=== PATIENT | male | born 1945 | race Caucasian/White ===

== ENCOUNTER 2018-01-02 06:25 | Day surgery (SDC) | payer OTHER, BC ==
[2018-01-01 15:42] LABS: Absolute Lymphocytes (CBC) 1.4 K/uL (0.7-4.9); Absolute Monocytes 0.5 K/uL (0.1-1.3); Absolute Neutrophil 4.6 K/uL (1.8-8.0); Basophils % 0.6 % (0-1.3); Hematocrit 43.9 % (39.6-49.0); Lymphocytes % 21.2 % (15.3-44.8); MCH 31.2 pg (27.0-35.0); MCV 90.1 fL (80-100); MPV 9.9 fL (7.6-11.3); Monocytes % 7.3 % (3.3-12.3); RBC Red Blood Cell Count 4.87 M/uL (4.33-5.43)
[2018-01-01 16:03] LABS: Potassium 3.7 mmol/L (3.5-5.1); Protime INR 0.96
[2018-01-02] MEDS ORDERED: HEPA 1000U/500MLS 2,000 UNIT/1,000 ML BAG IV ONE (06:43)
[2018-01-02] MEDS ORDERED: NA CHLORIDE 0.9% 500 ML ONE (06:44)
[2018-01-02] MEDS ORDERED: MIDAZOLAM HCL 2 MG/2 ML INJ ONE ×2 (07:27→07:35)
[2018-01-02] MEDS ORDERED: FENTANYL CITR 100 MCG/2 ML ONE (07:28)
[2018-01-02] MEDS ORDERED: ATROPINE SULF 1 MG/10 ML SYR IV ONE (07:28)
[2018-01-02] MEDS ORDERED: NA CHLORIDE 0.9% 0 ML ONE (07:28)
[2018-01-02] MEDS ORDERED: LIDOCAINE 1% MPF 2 ML AMPULE ONE (07:32)
--- NOTE | 2018-01-02 08:47 | OP ---
Surgeon: Lyle Gunderson MD Structural Steel Worker Apprentice: Theodora Jackson. Procedures: Left heart catheterization, selective coronary arteriogram, left heart catheterization, left ventricular angiogram, MOSS injection, and a RUSSELL injection. Indication: Unstable angina and coronary artery disease. Procedure In Detail: The patient is a 72-year-old with history of CABG, unstable angina, scheduled f or an outpatient catheterization today 01/02/2018. Prepped and draped in the routine sterile fashion . Given 3 mg of Versed and 50 mg of fentanyl for IV sedation. Right common femoral artery access wi th a 6-Mongolian sheath. StarClose was used to close the case. Brian catheter was used to do the lobito gnostic catheterization. He was found to have a normal left main. LAD has some diffuse plaquing and no significant stenosis. There was a 60% ostial circumflex stenosis that is small. He has left dom inant. He had a very large patent OM only with some plaquing. The pechanga RCA was completely occlude d. He had a MOSS that is completely occluded. He had a RUSSELL to the RCA that is patent, connect to t he PDA distally. LV-gram was normal. Normal end-diastolic pressure. No wall motion, normal ejectio n fraction. Complications: None. Estimated Blood Loss: 5 cc. Postoperative Diagnosis: Coronary artery disease. Plan: For medical treatment. Optical Scientist: Myself. Total Conscious Sedation: 30 minutes. NATALY/GALEN Voice ID: [id number] Report ID: [id number]
== END 2018-01-02 10:03 | disposition home or self-care (01) ==
LOC: CCL 06:25
DX: I25.110 Atherosclerotic heart disease of native coronary artery with unstable angina pectoris (principal); I25.82 Chronic total occlusion of coronary artery; I10 Essential (primary) hypertension; E78.6 Lipoprotein deficiency; J44.9 Chronic obstructive pulmonary disease, unspecified; Z95.1 Presence of aortocoronary bypass graft; Z87.891 Personal history of nicotine dependence; Z88.0 Allergy status to penicillin
CPT/HCPCS: 36415; 80048; 85025; 85610; 85730; 93458; C1893; J2001; J2250 ×2; J3010; J0583

== ENCOUNTER 2018-02-18 00:10 | Emergency (ER) | payer OTHER, BC ==
[2018-02-18 01:19] LABS: Absolute Lymphocytes (CBC) 2.2 K/uL (0.7-4.9); Absolute Monocytes 0.9 K/uL (0.1-1.3); Absolute Neutrophil 8.3 K/uL (1.8-8.0); Basophils % 0.6 % (0-1.3); Eosinophils % 2.1 % (0-4.4); Hematocrit 42.2 % (39.6-49.0); Lymphocytes % 18.5 % (15.3-44.8); MCV 88.8 fL (80-100); MPV 9.6 fL (7.6-11.3); RBC Red Blood Cell Count 4.75 M/uL (4.33-5.43)
[2018-02-18 01:46] LABS: Protime INR 0.99
[2018-02-18 02:08] LABS: ALT/SGPT 28 U/L (12-78); AST/SGOT 21 U/L (15-37); Albumin 3.7 g/dL (3.4-5.0); Alkaline Phosphatase 69 U/L (45-117); BUN Blood Urea Nitrogen 21 mg/dL (7-18); Bicarbonate 28 mmol/L (21-32); Bilirubin Direct 0.1 mg/dL (0-0.2); Bilirubin Total 0.3 mg/dL (0.2-1.0); CKMB Creatine Kinase MB 4.3 ng/mL (0.3-3.6); Creatine Phosphokinase 392 U/L (39-308); Glucose Level 96 mg/dL (74-106); Lipase 86 U/L (73-393); Magnesium 1.9 mg/dL (1.8-2.4); NT PRO-BNP 193 pg/mL (<125); Potassium 3.4 mmol/L (3.5-5.1); Protein, Total 7.2 g/dL (6.4-8.2); Sodium Level 141 mmol/L (136-145); Troponin (Emerg Dept Use Only) < 0.02 ng/mL (0.0-0.045)
--- NOTE | 2018-02-18 04:46 | EDPHYS ---
Physician Documentation [facility] Name: Alexandro Reinoso Age: 72 yrs Sex: Male : 1945 Arrival Date: 02/18/2018 Time: 00:11 Bed 4 Private MD: ED Physician Wilmer Garcia HPI: 02/18 00:51 This 72 yrs old Male presents to ER via Ambulatory with complaints of tw4 Breathing Difficulty, Foreign Body In Throat. 00:51 The patient has shortness of breath at rest. Onset: The symptoms/episode began/occurred tw4 just prior to arrival. Duration: The symptoms are continuous. The patient's shortness of breath has no apparent modifying factors. Associated signs and symptoms: The patient has no apparent associated signs or symptoms. Severity of symptoms: At their worst the symptoms were severe in the emergency department the symptoms are unchanged. The patient has experienced a previous episode, and the symptoms today are exactly the same. The patient has not recently seen a physician. Historical: - Allergies: 00:24 PENICILLINS; fc - Home Meds: 00:24 hydrochlorothiazide 12.5 mg Oral cap 1 cap once daily [Active]; rosuvastatin 20 mg oral fc tab 1 tab once daily [Active]; diltiazem HCl 240 mg Oral CDER 1 cap once daily [Active]; aspirin 81 mg Oral TbEC 1 tab once daily [Active]; - PMHx: 00:24 COPD; High Cholesterol; CAD; fc - PSHx: 00:24 CABG; fc - Immunization history:: Last tetanus immunization: up to date Flu vaccine is up to date. - Social history:: Smoking status: Patient/guardian denies using tobacco, Patient/guardian denies using alcohol, street drugs. - Ebola Screening: : Patient negative for fever greater than or equal to 101.5 degrees Fahrenheit, and additional compatible Ebola Virus Disease symptoms Patient denies exposure to infectious person Patient denies travel to an Ebola-affected area in the 21 days before illness onset. ROS: 00:51 Constitutional: Negative for fever, chills, and weight loss, Eyes: Negative for injury, tw4 pain, redness, and discharge, Cardiovascular: Negative for chest pain, palpitations, and edema, Abdomen/GI: Negative for abdominal pain, nausea, vomiting, diarrhea, and constipation, Back: Negative for injury and pain, MS/Extremity: Negative for injury and deformity, Skin: Negative for injury, rash, and discoloration. 00:51 Respiratory: Positive for cough, with no reported sputum, dyspnea on exertion, shortness of breath, Negative for hemoptysis, orthopnea, pleurisy. Exam: 01:03 Constitutional: This is a well developed, well nourished patient who is awake, alert, tw4 and in no acute distress. Head/Face: Normocephalic, atraumatic. Chest/axilla: Normal chest wall appearance and motion. Nontender with no deformity. No lesions are appreciated. Cardiovascular: Regular rate and rhythm with a normal S1 and S2. No gallops, murmurs, or rubs. Normal PMI, no JVD. No pulse deficits. 01:03 Respiratory: mild respiratory distress is noted, Respirations: normal, Breath sounds: bronchial sounds, that are moderate, are scattered, rhonchi, that are moderate, are scattered. 01:12 ECG was reviewed by the Attending Physician. tw4 Vital Signs: 00:11 BP 191 / 92; Pulse 117; Resp 24; Temp 98.4(O); Pulse Ox 91% on R/A; Weight 72.57 kg fc (R); Height 5 ft. 5 in. (165.10 cm) (R); Pain 0/10; 00:58 BP 143 / 83; Pulse 100; Resp 20; Pulse Ox 94% on R/A; tl2 01:58 BP 143 / 82; Pulse 93; Resp 11; Pulse Ox 97% on R/A; tl2 02:18 BP 145 / 83; Pulse 94; Resp 14; Pulse Ox 97% ; ea 02:47 BP 136 / 85; Pulse 92; Resp 19; Pulse Ox 98% on R/A; tl2 03:27 BP 150 / 91; Pulse 96; Resp 18; Pulse Ox 95% ; ea 03:40 BP 141 / 89; Pulse 91; Resp 20; Pulse Ox 97% on R/A; tl2 04:40 BP 146 / 86; Pulse 86; Resp 16; Pulse Ox 98% on R/A; tl2 00:11 Body Mass Index 26.63 (72.57 kg, 165.10 cm) MDM: 00:23 Patient medically screened. tw4 04:41 Differential diagnosis: Anemia Anxiety Reaction pneumonia, Pneumothorax reactive airway tw4 disease. Data reviewed: vital signs, nurses notes. Data interpreted: Pulse oximetry: Interpretation: normal. Counseling: I had a detailed discussion with the patient and/or guardian regarding: the historical points, exam findings, and any diagnostic results supporting the discharge/admit diagnosis. Special discussion: I discussed with the patient/guardian in detail that at this point there is no indication for admission to the hospital. It is understood, however, that if the symptoms persist or worsen the patient needs to return immediately for re-evaluation. 02/18 00:25 Order name: Blood Culture Adult (2) 02/18 00:25 Order name: BMP; Complete Time: 03:24 02/18 03:25 Interpretation: Normal except: BUN 21; K 3.4; GFR 60. 02/18 00:25 Order name: CBC with Diff; Complete Time: 03:24 02/18 03:25 Interpretation: Normal except: WBC 11.7. 02/18 00:25 Order name: Ckmb; Complete Time: 03:24 02/18 03:25 Interpretation: Normal except: CKMB 4.3. 02/18 00:25 Order name: CPK; Complete Time: 03:24 02/18 03:25 Interpretation: Normal except: CPK 392. 02/18 00:25 Order name: D-Dimer; Complete Time: 03:24 02/18 03:25 Interpretation: Within normal limits: D-DIMER 441. 02/18 00:25 Order name: Hepatic Function; Complete Time: 03:24 02/18 03:25 Interpretation: Within normal limits. 02/18 00:25 Order name: Lipase; Complete Time: 03:24 02/18 03:25 Interpretation: LIP 86. 02/18 00:25 Order name: Magnesium; Complete Time: 03:24 02/18 03:26 Interpretation: Within normal limits: MG 1.9. 02/18 00:25 Order name: NT PRO-BNP; Complete Time: 03:24 02/18 03:25 Interpretation: Normal except: NT PRO-BNP 193. 02/18 00:25 Order name: PT-INR; Complete Time: 03:24 02/18 03:26 Interpretation: Within normal limits: PT 11.7. tw4 02/18 00:25 Order name: Ptt, Activated; Complete Time: 03:24 tw4 02/18 03:27 Interpretation: Within normal limits: PTT 27.4. tw4 02/18 00:25 Order name: Troponin (emerg Dept Use Only); Complete Time: 03:24 tw4 02/18 03:27 Interpretation: Within normal limits: TROPED < 0.02. tw4 02/18 00:27 Order name: Blood Culture EDCO 02/18 00:25 Order name: XRAY CXR (1 view) tw4 02/18 00:25 Order name: EKG; Complete Time: 00:27 tw4 02/18 00:25 Order name: Cardiac monitoring; Complete Time: 00:49 4 02/18 00:25 Order name: EKG - Nurse/Tech; Complete Time: 00:55 tw4 02/18 00:25 Order name: IV Saline Lock; Complete Time: 01:25 4 02/18 00:25 Order name: Labs collected and sent; Complete Time: 00:55 4 02/18 00:25 Order name: O2 Per Protocol; Complete Time: 00:49 tw4 02/18 00:25 Order name: O2 Sat Monitoring; Complete Time: 00:49 4 02/18 00:34 Order name: CT Chest Wo Con EC:12 Rate is 102 beats/min. QRS Rhome is Normal. CO interval is normal. QRS interval is tw4 normal. QT interval is normal. No Q waves. T waves are Inverted. No ST changes noted. Clinical impression: Sinus tachycardia. Interpreted by me. Reviewed by me. Administered Medications: No medications were administered Disposition: 02/18/18 04:45 Discharged to Home. Impression: CHOKING episode. - Condition is Stable. - Discharge Instructions: Choking, Adult. - Prescriptions for ROBITUSSIN AC - take 5 milliliter by ORAL route 3 times per day; 100 milliliter. Tessalon Perles 100 mg Oral Capsule - take 1 capsule by ORAL route every 8 hours As needed; 15 capsule. Cleocin 150 mg Oral Capsule - take 1 capsule by ORAL route every 6 hours for 10 days; 40 capsule. - Medication Reconciliation Form, Thank You Letter, Antibiotic Education, Prescription Opioid Use form. - Follow up: Private Physician; When: Upon discharge from the Emergency Department; Reason: Further diagnostic work-up, Recheck today's complaints, Continuance of care. - Problem is new. - Symptoms have improved. Signatures: Dispatcher [employer] Erika Denise RN RN Ritu Machado RN RN tl2 Wilmer Garcia MD MD tw4 Corrections: (The following items were deleted from the chart) 04:53 04:45 02/18/2018 04:45 Discharged to Home. Impression: CHOKING episode. Condition is tl2 Stable. Forms are Medication Reconciliation Form, Thank You Letter, Antibiotic Education, Prescription Opioid Use. Follow up: Private Physician; When: Upon discharge from the Emergency Department; Reason: Further diagnostic work-up, Recheck today's complaints, Continuance of care. Problem is new. Symptoms have improved. tw4
--- NOTE | 2018-02-18 04:46 | ER ---
Nurse's Notes [facility] Name: Alexandro Reinoso Age: 72 yrs Sex: Male : 1945 Arrival Date: 02/18/2018 Time: 00:11 Bed 4 Private MD: Diagnosis: CHOKING episode Presentation: 02/18 00:11 Presenting complaint: Patient states: that he is having episodes of feeling as if fc something is stuck in his throat. When this happens he cannot catch his breath and has coughing fits. Thinks he might have bread stuck in his throat. Transition of care: patient was not received from another setting of care. Onset of symptoms was February 17, 2018 at 19:30. Risk Assessment: Do you want to hurt yourself or someone else? Patient reports no desire to harm self or others. Initial Sepsis Screen: Does the patient meet any 2 criteria? RR > 20 per min. HR > 90 bpm. Yes Does the patient have a suspected source of infection? No. Patient's initial sepsis screen is negative. Care prior to arrival: None. 00:11 Method Of Arrival: Ambulatory fc 00:11 Acuity: SAMUEL 3 fc Historical: - Allergies: 00:24 PENICILLINS; fc - Home Meds: 00:24 hydrochlorothiazide 12.5 mg Oral cap 1 cap once daily [Active]; rosuvastatin 20 mg oral fc tab 1 tab once daily [Active]; diltiazem HCl 240 mg Oral CDER 1 cap once daily [Active]; aspirin 81 mg Oral TbEC 1 tab once daily [Active]; - PMHx: 00:24 COPD; High Cholesterol; CAD; fc - PSHx: 00:24 CABG; fc - Immunization history:: Last tetanus immunization: up to date Flu vaccine is up to date. - Social history:: Smoking status: Patient/guardian denies using tobacco, Patient/guardian denies using alcohol, street drugs. - Ebola Screening: : Patient negative for fever greater than or equal to 101.5 degrees Fahrenheit, and additional compatible Ebola Virus Disease symptoms Patient denies exposure to infectious person Patient denies travel to an Ebola-affected area in the 21 days before illness onset. Screenin:25 Abuse screen: Denies threats or abuse. Nutritional screening: No deficits noted. fc Tuberculosis screening: No symptoms or risk factors identified. Fall Risk None identified. Assessment: 00:58 General: Appears in no apparent distress. uncomfortable, Behavior is calm, cooperative, tl2 appropriate for age. Pain: Denies pain. Neuro: Level of Consciousness is awake, alert, obeys commands, Oriented to person, place, time, situation. Cardiovascular: Denies chest pain, Rhythm is sinus tachycardia. Respiratory: Reports cough that is Airway is patent Respiratory effort is even, unlabored, Respiratory pattern is regular, symmetrical, Breath sounds are clear bilaterally. GI: No deficits noted. : No deficits noted. Derm: Skin is pink, warm \T\ dry. 01:44 Reassessment: Patient and/or family updated on plan of care and expected duration. Pain ea level reassessed. Patient is alert, oriented x 3, equal unlabored respirations, skin warm/dry/pink. 01:59 Reassessment: Patient appears in no apparent distress at this time. Patient and/or tl2 family updated on plan of care and expected duration. Pain level reassessed. Patient is alert, oriented x 3, equal unlabored respirations, skin warm/dry/pink. 02:47 Reassessment: Patient appears in no apparent distress at this time. Patient and/or tl2 family updated on plan of care and expected duration. Pain level reassessed. Patient is alert, oriented x 3, equal unlabored respirations, skin warm/dry/pink. Pt states he feels like the foreign body in his throat is gone Patient states feeling better. 03:26 Reassessment: Patient and/or family updated on plan of care and expected duration. Pain ea level reassessed. Patient is alert, oriented x 3, equal unlabored respirations, skin warm/dry/pink. Awaiting on CT results. 04:41 Reassessment: Patient appears in no apparent distress at this time. Patient and/or tl2 family updated on plan of care and expected duration. Pain level reassessed. Patient is alert, oriented x 3, equal unlabored respirations, skin warm/dry/pink. 04:52 Reassessment: Patient appears in no apparent distress at this time. Patient and/or tl2 family updated on plan of care and expected duration. Pain level reassessed. Patient is alert, oriented x 3, equal unlabored respirations, skin warm/dry/pink. Pt and family verbalized understanding of discharge instructions, need for follow up and prescription usage. Vital Signs: 00:11 BP 191 / 92; Pulse 117; Resp 24; Temp 98.4(O); Pulse Ox 91% on R/A; Weight 72.57 kg fc (R); Height 5 ft. 5 in. (165.10 cm) (R); Pain 0/10; 00:58 BP 143 / 83; Pulse 100; Resp 20; Pulse Ox 94% on R/A; tl2 01:58 BP 143 / 82; Pulse 93; Resp 11; Pulse Ox 97% on R/A; tl2 02:18 BP 145 / 83; Pulse 94; Resp 14; Pulse Ox 97% ; ea 02:47 BP 136 / 85; Pulse 92; Resp 19; Pulse Ox 98% on R/A; tl2 03:27 BP 150 / 91; Pulse 96; Resp 18; Pulse Ox 95% ; ea 03:40 BP 141 / 89; Pulse 91; Resp 20; Pulse Ox 97% on R/A; tl2 04:40 BP 146 / 86; Pulse 86; Resp 16; Pulse Ox 98% on R/A; tl2 00:11 Body Mass Index 26.63 (72.57 kg, 165.10 cm) ED Course: 00:11 Patient arrived in ED. am2 00:11 Arm band placed on Patient placed in an exam room, on a stretcher. fc 00:11 Patient has correct armband on for positive identification. Placed in gown. Bed in low fc position. Call light in reach. monitor technician on. Pulse ox on. NIBP on. 00:21 Triage completed. fc 00:23 Wilmer Garcia MD is Attending Physician. tw4 00:38 X-ray completed. Portable x-ray completed in exam room. Patient tolerated procedure kw well. 00:38 XRAY CXR (1 view) In Process Unspecified. EDMS 00:53 Radiology exam delayed due to ER Staff getting labs on patient plus EKG being done. kw1 00:56 Initial lab(s) drawn, by ED staff, sent to lab. EKG done, by ED staff, reviewed by sherrill Garcia MD. 01:[address] via wheelchair. kw1 01:06 CT completed. Patient tolerated procedure well. Patient moved back from CT. kw1 01:07 CT Chest Wo Con In Process Unspecified. EDMS 01:25 Machado, Ritu, RN is Primary Nurse. tl2 01:32 Blood Culture Adult (2) Sent. ds4 01:32 BMP Sent. ds4 01:32 Ckmb Sent. ds4 01:32 CPK Sent. ds4 01:32 D-Dimer Sent. ds4 01:33 PT-INR Sent. ds4 01:33 Hepatic Function Sent. ds4 01:33 Ptt, Activated Sent. ds4 01:33 Lipase Sent. ds4 01:33 Magnesium Sent. ds4 01:33 NT PRO-BNP Sent. ds4 01:33 Troponin (emerg Dept Use Only) Sent. ds4 01:33 Blood Culture Sent. ds4 04:52 No provider procedures requiring assistance completed. Patient did not have IV access tl2 during this emergency room visit. Administered Medications: No medications were administered Outcome: 04:45 Discharge ordered by . tw4 04:52 Discharged to home ambulatory, with family. tl2 04:52 Condition: stable 04:52 Discharge instructions given to patient, family, Instructed on discharge instructions, follow up and referral plans. medication usage, Demonstrated understanding of instructions, follow-up care, medications, Prescriptions given X 3. 04:53 Patient left the ED. tl2 Signatures: Dispatcher [employer] EDW[facility] Erika Romo RN RN fc Whitley, Kimberlee kw Swanson, Donovan ds4 Ritu Machado RN RN tl2 Rosetta Eller Elena, RN RN ea Wilhelm, Kimberly 1 Wilmer Garcia MD MD tw4
--- NOTE | 2018-02-18 08:28 | RAD REPORT ---
EXAM DESCRIPTION: RAD - Chest Single View - 02/18/2018 12:41 am CLINICAL HISTORY: DYSPNEA Chest pain. COMPARISON: Chest Pa And Lat (2 Views) dated 12/09/2017; Thorax Wo Con dated 02/18/2018 FINDINGS: Portable technique limits examination quality. Emphysematous changes are present throughout the lungs. No focal infiltrate seen. The heart is normal in size. No displaced fractures.Sternotomy wires. IMPRESSION: Prominent COPD.
--- NOTE | 2018-02-18 08:30 | RAD REPORT ---
EXAM DESCRIPTION: CT - Thorax Wo Con CLINICAL HISTORY: Chest pain r/o FB COMPARISON: No comparisons FINDINGS: Severe emphysema is present. No nodule, mass or infiltrate is detected. No pleural thicken ing or pleural effusion. No pneumothorax. No axillary, mediastinal or hilar adenopathy. Small hiatal hernia is seen. No concerning bony finding. No gross upper abdominal finding. All CT scans are performed using dose optimization technique as appropriate and may include automated exposure control or mA/KV adjustment according to patient size. IMPRESSION: Severe COPD.
--- NOTE | 2018-02-18 12:12 | EKG ---
Test Date: 2018-02-18 Test Time: 00:54:37 Water System Operator: KALEN MEASUREMENT RESULTS: Intervals: Rate: 102 WV: 172 QRSD: 92 QT: 364 QTc: 474 [place]: P: 65 WV: 172 QRS: 11 T: 48 INTERPRETIVE STATEMENTS: Sinus tachycardia Possible Inferior infarct, age undetermined Abnormal ECG No previous ECG available for comparison Electronically Signed On 02-18-18 12:09:59 CDT by Lyle Gunderson
== END 2018-02-18 04:53 | disposition home or self-care (01) ==
LOC: ER 00:10
DX: R09.89 Other specified symptoms and signs involving the circulatory and respiratory systems (principal); E78.00 Pure hypercholesterolemia, unspecified; J44.9 Chronic obstructive pulmonary disease, unspecified; Z79.82 Long term (current) use of aspirin; Z88.0 Allergy status to penicillin; Z95.1 Presence of aortocoronary bypass graft
CPT/HCPCS: 36415; 71045; 71250; 80048; 80076; 82550; 82553; 83690; 83735; 83880; 84484; 85025; 85379; 85610; 85730; 87040; 93005; 99285

== ENCOUNTER 2018-12-28 21:06 | Emergency (ER) | payer OTHER, BC ==
[2018-12-28] MEDS ORDERED: EPINEPHrine 1 MG/10 ML SYR IV ONE (21:07)
[2018-12-28] MEDS ORDERED: ASPIRIN 81 MG CHEWABLE TABLET ONE (21:20)
[2018-12-28 21:22] LABS: Absolute Lymphocytes (CBC) 2.6 K/uL (0.7-4.9); Basophils % 0.7 % (0-1.3); Hematocrit 47.6 % (39.6-49.0); Lymphocytes % 20.3 % (15.3-44.8); MPV 9.3 fL (7.6-11.3); RBC Red Blood Cell Count 5.36 M/uL (4.33-5.43)
[2018-12-28] MEDS ORDERED: FENTANYL CITR 100 MCG/2 ML ONE (21:25)
[2018-12-28] MEDS ORDERED: ONDANSETRON 4 MG/2 ML VIAL ONE (21:26)
[2018-12-28 21:27] LABS: Protime INR 1.03
[2018-12-28] MEDS ORDERED: CLOPIDOGREL 75 MG TABLET ONE (21:30)
[2018-12-28] MEDS ORDERED: TENECTEPLASE 50 MG/10 ML VIAL IV ONE (21:31)
--- NOTE | 2018-12-28 21:33 | ER ---
Nurse's Notes [facility] Name: Alexandro Reinoso Age: 73 yrs Sex: Male : 1945 Arrival Date: 12/28/2018 Time: 21:09 Bed 3 Private MD: Diagnosis: Ventricular fibrillation;ST elevation (STEMI) myocardial infarction of anterior wall Presentation: 12/28 21:09 Presenting complaint: Patient states: that he had been having chest pain on and off for fc a couple of hours. Pt stood up and sat on bed. Upon sitting on bed while talking to Sree PA pt fell back on bed and eyes rolled back. Pt quickly moved to ER bed 2. Transition of care: patient was not received from another setting of care. Onset of symptoms was December 28, 2018 at 19:00. Risk Assessment: Do you want to hurt yourself or someone else? Patient reports no desire to harm self or others. Initial Sepsis Screen:. Care prior to arrival: None. 21:09 Method Of Arrival: Wheelchair fc 21:09 Acuity: SAMUEL 1 fc Historical: - Allergies: 22:28 PENICILLINS; ea - Home Meds: 22:28 aspirin 81 mg Oral TbEC 1 tab once daily [Active]; diltiazem HCl 240 mg Oral CDER 1 cap ea once daily [Active]; hydrochlorothiazide 12.5 mg Oral cap 1 cap once daily [Active]; rosuvastatin 20 mg Oral tab 1 tab once daily [Active]; elipta inhaler [Active]; - PMHx: 22:28 CAD; COPD; High Cholesterol; Hypertension; ea - PSHx: 22:28 CABG; ea - Immunization history:: Adult Immunizations up to date. - Social history:: Smoking status: unknown. Screenin:16 Abuse screen: Denies threats or abuse. Nutritional screening: No deficits noted. ea Tuberculosis screening: No symptoms or risk factors identified. Fall Risk Total Bradford Fall Scale indicates High Risk Score (45 or more points). Fall prevention measures have been instituted. Side Rails Up X 2 Placed Close to Nursing Station Frequent Obs/Assessments Occuring Family Present and informed to notify staff if the need to leave the bedside As available patient and family educated on Fall Prevention Program and Strategies. Assessment: 21:09 General: Appears distressed, Behavior is unresponsive. pt brought by mey hawkins unresponsive accompanied by Varun ORELLANA who states pt was c/o chest [place] x 2 hours prior to arrival while talking to pt he became unresponsive and now shows Vfib on monitor. Dr Sarkar, Mandy Yeung RN, magen RN, Yan RN, Raad RN, Dago RT, Annika RT, and Edison PINO tech at bedside. Pt shocked with 200 J x 1, cardiac rhythmn now sinus tach at 139. Bilateral 20 g inserted into AC.. Pain: Unable to use pain scale. Patient is unresponsive. Neuro: Level of Consciousness is unresponsive. Cardiovascular: Rhythm is ventricular fibrillation. Respiratory: Airway BVM. GI: Abdomen is distended. Derm: Skin is dusky. 21:10 Cardiovascular: Rhythm is sinus tachycardia. ea 21:12 Neuro: Level of Consciousness is awake, alert, obeys commands. ea 21:42 Reassessment: report given to [facility]. ea 21:50 Reassessment: report given to Chelsie Ruiz RN at [facility]. ea 22:05 Reassessment: Patient is alert, oriented x 3, equal unlabored respirations, skin ea warm/dry/pink. Pain: Denies pain. Cardiovascular: Rhythm is sinus rhythm. Respiratory: Airway is patent Respiratory effort is even, unlabored, Respiratory pattern is regular, Breath sounds are clear bilaterally. GI: Abdomen is non-distended. Derm: Skin is clammy, Skin is pink, Skin temperature is warm. Musculoskeletal: Circulation, motion, and sensation intact. 22:07 Reassessment: [facility] at bedside for transport of pt to [facility] no change ea from prior assessment. IV sites intact, patent fluids infusing, family at bedside. Vital Signs: 21:12 BP 165 / 86; Pulse 133; Resp 25 S; Pulse Ox 95% on Non-rebreather mask; ea 21:20 BP 132 / 87; Pulse 105; Resp 15; Pulse Ox 100% on Non-rebreather mask; Weight 72.57 kg ea (R); 21:30 BP 127 / 83; Pulse 101; Resp 14 S; Pulse Ox 99% on 2 lpm NC; ea 21:52 BP 113 / 85; Pulse 91; Resp 12 S; Pulse Ox 96% on 2 lpm NC; ea 22:19 BP 127 / 86; Pulse 79; Resp 12 S; Temp 98.2(TE); Pulse Ox 98% on R/A; Pain 0/10; ea ED Course: 21:09 Patient arrived in ED. ag3 21:09 Assist provider with cardioversion with defibrillator, for treatment of V fib with 200 ea joules X 1. Set up for procedure. Performed by Sree ORELLANA Monitored with nuclear monitoring technician, pulse ox, Post procedure rhythm is sinus tachycardia. Patient tolerated well. 21:10 Initial lab(s) drawn, by ED staff, sent to lab. Inserted saline lock: 20 gauge in right ea in left antecubital area, using aseptic technique. Blood collected. 21:10 Patient has correct armband on for positive identification. residential monitor on. Pulse ea ox on. NIBP on. 21:15 Sree Garcia PA is PHCP. jr8 21:15 Jozef Sarkar MD is Attending Physician. jr8 21:39 XRAY Chest (1 view) In Process Unspecified. EDMS 21:52 Aleta Del Toro, SALLIE is Primary Nurse. ea 22:43 Triage completed. fc 22:43 Patient transferred, IV remains in place. fc Administered Medications: 21:20 Drug: Heparin ([place]-Bolus No thrombolytic) - HEParin 60 units/kg {Co-Signature: fili hawkins (Rona Rojas RN).} Route: IVP; Site: left antecubital; 22:20 Follow up: Response: No adverse reaction 21:20 Drug: Heparin ([place] Drip) 12 units/kg/hr - (HEParin 01311 units, D5W 500 ml) ea {Co-Signature: fili (Rona Rojas RN).} Route: IV; Rate: calculated rate; Site: left antecubital; 22:21 Follow up: IV Status: Infusion continued upon transfer ea 21:20 Drug: Zofran 4 mg Route: IVP; Site: right antecubital; ea 22:20 Follow up: Response: No adverse reaction ea 21: Drug: Aspirin Chewable Tablet 324 mg Route: PO; fc 22:22 Follow up: Response: No adverse reaction 21:30 Drug: fentaNYL (PF) 25 mcg {Note: RASS 0.} Route: IVP; Site: right antecubital; ea 22:21 Follow up: Response: Pain is decreased; RASS: Alert and Calm (0) ea 21:33 Drug: PlaVIX 75 mg Route: PO; ea 22:21 Follow up: Response: No adverse reaction ea 21:42 Drug: Tenecteplase 40 mg {Co-Signature: fili (Rona Rojas RN).} Route: IV; Rate: ea calculated rate; Site: right antecubital; 21:42 Follow up: IV Intake: 8ml ea 21:42 Follow up: IV Status: Completed infusion ea 22:21 Follow up: Response: No adverse reaction ea 21:50 Drug: Lopressor 5 mg Route: IVP; Site: right antecubital; rv 22:21 Follow up: Response: Blood pressure is lowered ea 22:15 Drug: Potassium Chloride 20 mEq Route: IV; Rate: calculated rate; Site: left ea antecubital; 22:22 Follow up: IV Status: Infusion continued upon transfer ea Point of Care Testing: Blood Glucose: 21:19 Blood Glucose: 150 mg/dL; ag4 Ranges: Intake: 21:42 IV: 8ml; Total: 8ml. ea Outcome: 21:33 ER care complete, transfer ordered by MD. matamoros 22:23 Transferred by helicopter to [facility], Transfer form completed. ea X-rays sent w/ patient. 22:23 Condition: stable 22:23 Instructed on the need for transfer. 22:28 Patient left the ED. ea Signatures: Dispatcher [employer] EDMS Erika Romo RN RN fc Ballard, Brenda, RN RN bb Roszak, Josh, PA PA Aleta Persaud RN RN ea Vicente, Ronaldo RN Merly Rasmussen3 Edison Elliott ag4 Rona penn Corrections: (The following items were deleted from the chart) 21:59 21:23 General: bb ea 22:01 21:20 BP 132 / 87; Pulse 105bpm; Resp 15bpm; Pulse Ox 100% Non-rebreather mask; ea ea 22:04 21:30 fentaNYL (PF) 25 mcg IVP in right antecubital ea ea
--- NOTE | 2018-12-28 21:34 | EDPHYS ---
Physician Documentation [facility] Name: Alexandro Reinoso Age: 73 yrs Sex: Male : 1945 Arrival Date: 12/28/2018 Time: 21:09 Bed 3 Private MD: ED Physician Jozef Sarkar HPI: 12/28 21:49 This 73 yrs old Male presents to ER via Unassigned with complaints of Chest jr8 Pain. 21:49 The patient or guardian reports chest pain that is located primarily in the anterior jr8 chest wall. Onset: acutely, today, 2 hour(s) ago. The pain does not radiate. Associated signs and symptoms: Pertinent positives: shortness of breath. The chest pain is described as a pressure. Duration: The patient or guardian reports a single episode, that is still ongoing. Modifying factors: The symptoms are alleviated by nothing. the symptoms are aggravated by movement. Severity of pain: At its worst the pain was moderate in the emergency department the pain is unchanged. The patient has not experienced similar symptoms in the past. The patient has not recently seen a physician. Patient with history of cardiac bypass about 9 years ago and end stage COPD. Had sudden onset chest pain that started about 2 hours prior to arrival. Patient arrived POV and was immediately brought back to Exam room still with same complaints. About 30 seconds into interview patient became unresponsive and went into V-Fib. ACLS immediately began . Historical: - Allergies: 22:28 PENICILLINS; ea - Home Meds: 22:28 aspirin 81 mg Oral TbEC 1 tab once daily [Active]; diltiazem HCl 240 mg Oral CDER 1 cap ea once daily [Active]; hydrochlorothiazide 12.5 mg Oral cap 1 cap once daily [Active]; rosuvastatin 20 mg Oral tab 1 tab once daily [Active]; elipta inhaler [Active]; - PMHx: 22:28 CAD; COPD; High Cholesterol; Hypertension; ea - PSHx: 22:28 CABG; ea - Immunization history:: Adult Immunizations up to date. - Social history:: Smoking status: unknown. ROS: 21:49 Eyes: Negative for injury, pain, redness, and discharge, ENT: Negative for injury, jr8 pain, and discharge, Neck: Negative for injury, pain, and swelling, Abdomen/GI: Negative for abdominal pain, nausea, vomiting, diarrhea, and constipation, Back: Negative for injury and pain, MS/Extremity: Negative for injury and deformity, Skin: Negative for injury, rash, and discoloration, Neuro: Negative for headache, weakness, numbness, tingling, and seizure. 21:49 Cardiovascular: Positive for chest pain, Negative for edema, orthopnea, palpitations, paroxysmal nocturnal dyspnea. 21:49 Respiratory: Positive for shortness of breath. Exam: 21:49 Eyes: Pupils equal round and reactive to light, extra-ocular motions intact. Lids and jr8 lashes normal. Conjunctiva and sclera are non-icteric and not injected. Cornea within normal limits. Periorbital areas with no swelling, redness, or edema. ENT: Nares patent. No nasal discharge, no septal abnormalities noted. Tympanic membranes are normal and external auditory canals are clear. Oropharynx with no redness, swelling, or masses, exudates, or evidence of obstruction, uvula midline. Mucous membranes moist. Neck: Trachea midline, no thyromegaly or masses palpated, and no cervical lymphadenopathy. Supple, full range of motion without nuchal rigidity, or vertebral point tenderness. No Meningismus. Cardiovascular: Regular rate and rhythm with a normal S1 and S2. No gallops, murmurs, or rubs. Normal PMI, no JVD. No pulse deficits. Respiratory: Mild tachypnea present with wheezing diffusely Abdomen/GI: Soft, non-tender, with normal bowel sounds. No distension or tympany. No guarding or rebound. No evidence of tenderness throughout. Back: No spinal tenderness. No costovertebral tenderness. Full range of motion. Skin: Warm, moist with normal turgor. Normal color with no rashes, no lesions, and no evidence of cellulitis. MS/ Extremity: Pulses equal, no cyanosis. Neurovascular intact. Full, normal range of motion. Neuro: Awake and alert, GCS 15, oriented to person, place, time, and situation. Cranial nerves II-XII grossly intact. Motor strength 5/5 in all extremities. Sensory grossly intact. Cerebellar exam normal. Normal gait. Vital Signs: 21:12 BP 165 / 86; Pulse 133; Resp 25 S; Pulse Ox 95% on Non-rebreather mask; ea 21:20 BP 132 / 87; Pulse 105; Resp 15; Pulse Ox 100% on Non-rebreather mask; Weight 72.57 kg ea (R); 21:30 BP 127 / 83; Pulse 101; Resp 14 S; Pulse Ox 99% on 2 lpm NC; ea 21:52 BP 113 / 85; Pulse 91; Resp 12 S; Pulse Ox 96% on 2 lpm NC; ea 22:19 BP 127 / 86; Pulse 79; Resp 12 S; Temp 98.2(TE); Pulse Ox 98% on R/A; Pain 0/10; ea Procedures: 21:49 Cardioversion: (unsynchronized) for treatment of V fib, with 200 joules X 1. Post jr8 procedure rhythm is sinus rhythm, the patient tolerated the procedure well. MDM: 21:16 Patient medically screened. jr8 21:29 Data reviewed: vital signs, nurses notes, lab test result(s), EKG, radiologic studies, jr8 plain films. Data interpreted: Pulse oximetry: on room air is 100 %. Interpretation: normal. Counseling: I had a detailed discussion with the patient and/or guardian regarding: the historical points, exam findings, and any diagnostic results supporting the discharge/admit diagnosis, lab results, radiology results, the need to transfer to another facility, [facility] does not immediately have the required specialist. ED course: Dr. Pickens at [facility] accepted patient for STEMI. 21:49 ECG:. The patient was given aspirin in the Emergency Department. [facility] 12/28 21:15 Order name: Basic Metabolic Panel; Complete Time: 21:48 12/28 21:15 Order name: CBC with Diff; Complete Time: 21:40 12/28 21:15 Order name: LFT's; Complete Time: 21:48 12/28 21:15 Order name: Magnesium; Complete Time: 21:48 12/28 21:15 Order name: NT PRO-BNP; Complete Time: 21:48 12/28 21:15 Order name: PT-INR; Complete Time: 21:40 12/28 21:15 Order name: Troponin (emerg Dept Use Only); Complete Time: 21:48 12/28 21:15 Order name: XRAY Chest (1 view) 12/28 21:15 Order name: EKG; Complete Time: 21:16 12/28 21:15 Order name: Cardiac monitoring; Complete Time: : 12/28 21:15 Order name: EKG - Nurse/Tech; Complete Time: 12/28 21:15 Order name: IV Saline Lock; Complete Time: 12/28 21:15 Order name: Labs collected and sent; Complete Time: 12/28 21:15 Order name: O2 Per Protocol; Complete Time: 12/28 21:15 Order name: O2 Sat Monitoring; Complete Time: : EC:49 Rate is 106 beats/min. Rhythm is regular, Sinus tachycardia. QRS [place] is Normal. [place] jr8 interval is prolonged at 232 msec. QRS interval is normal at 102 msec. QT interval is normal at 448 msec. No Q waves. T waves are Normal. ST Segment is elevated in leads V4, V5, 1-2mm. Clinical impression: Acute AL. Interpreted by me. Reviewed by me. Administered Medications: 21:20 Drug: Heparin ([place]-Bolus No thrombolytic) - HEParin 60 units/kg {Co-Signature: fili hawkins (Rona Rojas RN).} Route: IVP; Site: left antecubital; 22:20 Follow up: Response: No adverse reaction ea 21:20 Drug: Heparin ([place] Drip) 12 units/kg/hr - (HEParin 85011 units, D5W 500 ml) ea {Co-Signature: fili (Rona Rojas RN).} Route: IV; Rate: calculated rate; Site: left antecubital; 22:21 Follow up: IV Status: Infusion continued upon transfer ea 21:20 Drug: Zofran 4 mg Route: IVP; Site: right antecubital; ea 22:20 Follow up: Response: No adverse reaction ea 21:22 Drug: Aspirin Chewable Tablet 324 mg Route: PO; 22:22 Follow up: Response: No adverse reaction ea 21:30 Drug: fentaNYL (PF) 25 mcg {Note: RASS 0.} Route: IVP; Site: right antecubital; ea 22:21 Follow up: Response: Pain is decreased; RASS: Alert and Calm (0) ea 21:33 Drug: PlaVIX 75 mg Route: PO; ea 22:21 Follow up: Response: No adverse reaction ea 21:42 Drug: Tenecteplase 40 mg {Co-Signature: bb (Rona Rojas RN).} Route: IV; Rate: ea calculated rate; Site: right antecubital; 21:42 Follow up: IV Intake: 8ml ea 21:42 Follow up: IV Status: Completed infusion ea 22:21 Follow up: Response: No adverse reaction ea 21:50 Drug: Lopressor 5 mg Route: IVP; Site: right antecubital; rv 22:21 Follow up: Response: Blood pressure is lowered ea 22:15 Drug: Potassium Chloride 20 mEq Route: IV; Rate: calculated rate; Site: left ea antecubital; 22:22 Follow up: IV Status: Infusion continued upon transfer ea Point of Care Testing: Blood Glucose: : Blood Glucose: 150 mg/dL; ag4 Ranges: Critical Glucose Levels:Adult <50 mg/dl or >400 mg/dl <40 mg/dl or >180 mg/dl Disposition: 12/29 02:10 Co-signature as Attending Physician, Jozef Sarkar MD I agree with the assessment and kdr plan of care. Disposition: 12/28/18 21:33 Transfer ordered to [facility]. Diagnosis are Ventricular fibrillation, ST elevation (STEMI) myocardial infarction of anterior wall. - Reason for transfer: Higher level of care. - Accepting physician is Dr. Pickens . - Condition is Serious. - Problem is new. - Symptoms have improved. Signatures: Dispatcher [employer] EDJozef Becker MD MD kdr Chretien, Felicia RN Sree Zhu PA PA jr8 Aleta Del Toro RN RN ea Vicente, Ronaldo RN RN rahda penn Corrections: (The following items were deleted from the chart) 12/28 22:28 21:33 12/28/2018 21:33 Transfer ordered to [facility]. Diagnosis is ea Ventricular fibrillation; ST elevation (STEMI) myocardial infarction of anterior wall. Reason for transfer: Higher level of care. Accepting physician is Dr. Pickens . Condition is Serious. Problem is new. Symptoms have improved. jr8
[2018-12-28 21:45] LABS: Albumin 3.9 g/dL (3.4-5.0); Bilirubin Direct 0.1 mg/dL (0-0.2); Bilirubin Total 0.4 mg/dL (0.2-1.0); Magnesium 1.9 mg/dL (1.8-2.4); Protein, Total 7.8 g/dL (6.4-8.2)
[2018-12-28 21:47] LABS: Troponin (Emerg Dept Use Only) 0.54 ng/mL (0.0-0.045)
[2018-12-28] MEDS ORDERED: METOPROLOL TARTRATE 5 MG/5 ML INJ IV ONE (21:48)
[2018-12-28] MEDS ORDERED: NA CHLORIDE 0.9% 500 ML ONE (22:12)
[2018-12-28] MEDS ORDERED: KCL 20 MEQ/100 mL IVPB 20 MEQ/100 ML BAG IV ONE (22:12)
--- NOTE | 2018-12-29 08:06 | RAD REPORT ---
EXAM DESCRIPTION: RAD - Chest Single View - 12/28/2018 9:38 pm CLINICAL HISTORY: Chest pain, CPR COMPARISON: January 2018 TECHNIQUE: AP portable chest image was obtained 2120 hours . FINDINGS: Diffusely prominent interstitial pattern is present substantially increased a very promine nt baseline pattern seen January 2018. Lung parenchymal opacification is more pronounced in the media l right lung base. Heart size and vasculature are normal range. Sternotomy wires are in place. Surgic al staple line is seen along the left mediastinal margin from hilum to apex. Resuscitation paddles ar e in place. No measurable pleural effusion and no pneumothorax. No acute bony abnormality seen. No ac [place] aortic findings suspected. IMPRESSION: Diffuse interstitial edema or interstitial infiltrate pattern superimposed on baseline f ibrosis. Medial right base increased opacification could be infiltrate or focally more pronounced edema.
--- NOTE | 2018-12-29 08:36 | EKG ---
Test Date: 2018-12-28 Test Time: 21:13:14 Analytics Director: VALARIE MEASUREMENT RESULTS: Intervals: Rate: 106 WV: 232 QRSD: 102 QT: 338 QTc: 448 [place]: P: 81 WV: 232 QRS: 26 T: 73 INTERPRETIVE STATEMENTS: Sinus tachycardia with 1st degree AV block with occasional premature ventricular complexes ST elevation, consider anterolateral injury or acute infarct ACUTE [place] / STEMI Abnormal ECG Compared to ECG 02/18/2018 00:54:37 Ventricular premature complex(es) now present First degree AV block now present ST (T wave) deviation now present Myocardial infarct finding still present Electronically Signed On 12-29-18 08:35:54 CDT by Lyle Gunderson
--- NOTE | 2018-12-29 08:36 | EKG ---
Test Date: 2018-12-28 Test Time: 21:14:25 Collection Teller: VALARIE MEASUREMENT RESULTS: Intervals: Rate: 103 NH: 198 QRSD: 100 QT: 348 QTc: 455 [place]: P: 77 NH: 198 QRS: 19 T: 84 INTERPRETIVE STATEMENTS: Sinus tachycardia with premature supraventricular complexes and with occasional and consecutive premature ventricular complexes Abnormal ECG Compared to ECG 12/28/2018 21:13:14 Atrial premature complex(es) now present First degree AV block no longer present ST (T wave) deviation still present Myocardial infarct finding still present Electronically Signed On 12-29-18 08:35:37 CDT by Lyle Gunderson
== END 2018-12-28 22:28 | disposition short-term general hospital (02) ==
LOC: ER 21:06
DX: I21.09 ST elevation (STEMI) myocardial infarction involving other coronary artery of anterior wall (principal); I49.01 Ventricular fibrillation; Z88.0 Allergy status to penicillin; I10 Essential (primary) hypertension; E78.00 Pure hypercholesterolemia, unspecified; J44.9 Chronic obstructive pulmonary disease, unspecified; I25.10 Atherosclerotic heart disease of native coronary artery without angina pectoris
CPT/HCPCS: 92960; 92977; 93005 ×2; 85025; 80048; 36415; 83735; 85610; 82962; 80076; 84484; 83880; 71045; 99285; J3101; J3010; J0171; J2405; 96365; 96375

== ENCOUNTER 2020-06-12 14:32 | Emergency (ER) | payer OTHER, BC ==
[2020-06-12 15:40] LABS: Absolute Lymphocytes (CBC) 0.5 K/uL (0.7-4.9); Basophils % 0.2 % (0-1.3); Hematocrit 40.4 % (39.6-49.0); MPV 8.6 fL (7.6-11.3); RBC Red Blood Cell Count 4.38 M/uL (4.33-5.43)
[2020-06-12 15:45] LABS: Protime INR 0.85
[2020-06-12 16:03] LABS: Albumin 3.1 g/dL (3.4-5.0); Bilirubin Direct 0.2 mg/dL (0-0.2); Bilirubin Total 0.8 mg/dL (0.2-1.0); CKMB Creatine Kinase MB 4.4 ng/mL (0.3-3.6); Magnesium 2.1 mg/dL (1.8-2.4); Potassium 4.2 mmol/L (3.5-5.1); Protein, Total 6.9 g/dL (6.4-8.2); Troponin (Emerg Dept Use Only) 0.02 ng/mL (0.0-0.045)
[2020-06-12] MEDS ORDERED: INSULIN -REGULAR HUMAN 50 UNIT/0.5 ML ML ONE (16:29)
--- NOTE | 2020-06-12 16:41 | RAD REPORT ---
EXAM DESCRIPTION: [place] Single View06/12/2020 3:42 pm CLINICAL HISTORY: Shortness of breath COMPARISON: 2014 FINDINGS: Mild bilateral interstitial lung opacities. Lungs are hyperaerated. . The heart is mildly enlarged. Postsurgical changes involve the chest. IMPRESSION: COPD Mild bilateral interstitial lung opacities probably are mostly chronic. There may be a mild superimpo sed interstitial pulmonary edema
--- NOTE | 2020-06-12 17:58 | ER ---
Nurse's Notes [facility] Name: Alexandro Reinoso Age: 74 yrs Sex: Male : 1945 Arrival Date: 06/12/2020 Time: 14:35 Bed 3 Private MD: Diagnosis: Hyperglycemia, unspecified;Chronic obstructive pulmonary disease with (acute) exacerbation Presentation: 06/12 14:46 Chief complaint: Home blood sugar 400s. SpO2 83 on RA in triage, pt reports he iis hb usually on home O2 \\T\\ 3-5LNC, left his portable oxygen in the car. Coronavirus screen: At this time, the client does not indicate any symptoms associated with coronavirus-19. Ebola Screen: No symptoms or risks identified at this time. 14:46 Method Of Arrival: Wheelchair hb 14:46 Initial Sepsis Screen: Does the patient meet any 2 criteria? HR > 90 bpm. No. Patient's hb initial sepsis screen is negative. Does the patient have a suspected source of infection? No. Patient's initial sepsis screen is negative. Risk Assessment: Do you want to hurt yourself or someone else? Patient reports no desire to harm self or others. Onset of symptoms was June 12, 2020. 14:46 Acuity: SAMUEL 2 hb Triage Assessment: 18:11 Respiratory: Reports. hb Historical: - Allergies: 14:52 PENICILLINS; hb - Home Meds: 14:52 aspirin 81 mg Oral TbEC 1 tab once daily [Active]; diltiazem HCl 240 mg Oral CDER 1 cap hb once daily [Active]; elipta inhaler [Active]; hydrochlorothiazide 12.5 mg Oral cap 1 cap once daily [Active]; rosuvastatin 20 mg Oral tab 1 tab once daily [Active]; - PMHx: 14:52 CAD; COPD; High Cholesterol; Hypertension; Myocardial infarction; hb - PSHx: 14:52 CABG; hb - Immunization history:: Adult Immunizations up to date. - Social history:: Smoking status: Patient denies any tobacco usage or history of. Screenin:00 Abuse screen: Denies threats or abuse. Denies injuries from another. Nutritional sv screening: No deficits noted. Tuberculosis screening: No symptoms or risk factors identified. Fall Risk None identified. Assessment: 15:00 General: Appears in no apparent distress. comfortable, well groomed, well developed, sv Behavior is calm, cooperative, appropriate for age. Pain: Denies pain. Neuro: Level of Consciousness is awake, alert, obeys commands, Oriented to person, place, time, situation, Moves all extremities. Full function Speech is normal. Cardiovascular: Patient's skin is warm and dry. Pulses are palpable in right radial artery and left radial artery Rhythm is sinus arrythmia. Respiratory: Airway is patent Respiratory effort is even, unlabored, Respiratory pattern is regular, symmetrical. Derm: Skin is intact, Skin is pink, warm \\T\\ dry. Bruising that is dark purple, on right arm and left arm. Musculoskeletal: Range of motion: intact in all extremities. 16:17 Reassessment: Patient appears in no apparent distress at this time. No changes from sv previously documented assessment. Patient and/or family updated on plan of care and expected duration. Pain level reassessed. Patient is alert, oriented x 3, equal unlabored respirations, skin warm/dry/pink. 17:11 Reassessment: Patient appears in no apparent distress at this time. No changes from sv previously documented assessment. Patient and/or family updated on plan of care and expected duration. Pain level reassessed. Patient is alert, oriented x 3, equal unlabored respirations, skin warm/dry/pink. 18:04 Reassessment: Dr Garcia in speaking with the pt regarding discharge. sv 18:11 Reassessment: Patient appears in no apparent distress at this time. No changes from sv previously documented assessment. Patient and/or family updated on plan of care and expected duration. Pain level reassessed. Patient is alert, oriented x 3, equal unlabored respirations, skin warm/dry/pink. Vital Signs: 14:36 Pulse 119; Pulse Ox 80% on R/A; hb 14:40 Pulse Ox 83% on 2 lpm NC; hb 14:46 BP 190 / 91; Pulse 121; Resp 17; Temp 98.3; Pulse Ox 97% on 3 lpm NC; Weight 73.94 kg; hb Height 5 ft. 6 in. (167.64 cm); Pain 0/10; 15:41 BP 139 / 78; Pulse 104; Resp 22; Pulse Ox 99% on 2 lpm NC; sv 16:24 BP 159 / 97; Pulse 111; Resp 15; Pulse Ox 98% on 2 lpm NC; sv 17:26 BP 158 / 98; Pulse 102; Resp 15; Pulse Ox 98% on 2 lpm NC; sv 18:03 BP 144 / 98; Pulse 94; Resp 17; Pulse Ox 100% on 2 lpm NC; sv 14:46 Body Mass Index 26.31 (73.94 kg, 167.64 cm) hb ED Course: 14:35 Patient arrived in ED. ll1 14:36 Arm band placed on Patient placed. ll1 14:38 Wilmer Garcia MD is Attending Physician. tw4 14:48 Triage completed. hb 15:00 Patient has correct armband on for positive identification. Placed in gown. Bed in low sv position. Call light in reach. Side rails up X2. ekg monitor tech on. Pulse ox on. NIBP on. Door closed. Head of bed elevated. 15:01 Marquita Ramirez, SALLIE is Primary Nurse. sv 15:05 First set of blood cultures drawn by me. Missed attempt(s): 20 gauge in left forearm. sv Bleeding controlled, band aid applied, catheter tip intact. 15:09 EKG done, by ED staff, reviewed by Wilmer Garcia MD. dh3 15:20 Second set of blood cultures drawn by me. Inserted saline lock: 20 gauge in right sv antecubital area, using aseptic technique. Blood collected. 15:30 X-ray(s) taken. sv 15:45 Awaiting lab results, Awaiting radiology results. sv 15:45 XRAY CXR (1 view) Sent. sv 15:45 Blood Culture Adult (2) Sent. sv 15:45 BMP Sent. sv 15:45 CBC with Diff Sent. sv 15:45 Ckmb Sent. sv 15:45 CPK Sent. sv 15:45 D-Dimer Sent. sv 15:45 Hepatic Function Sent. sv 15:46 Lipase Sent. sv 15:46 Magnesium Sent. sv 15:46 NT PRO-BNP Sent. sv 15:46 PT-INR Sent. sv 15:46 Ptt, Activated Sent. sv 15:46 Troponin (emerg Dept Use Only) Sent. sv 16:17 COVID-19 : Document "Date of Symptom Onset" if Symptomatic. Sent. sv 16:55 CORONAVIRUS Sent. sv 17:57 Jasvir Mansfield MD is Referral Physician. tw4 18:11 No provider procedures requiring assistance completed. IV discontinued, intact, hb bleeding controlled, No redness/swelling at site. Administered Medications: 16:17 Drug: Insulin Regular Human 5 units {Co-Signature: ph (Brittany Starr RN).} Route: IVP; sv Site: right antecubital; 17:11 Follow up: Response: No adverse reaction; Blood sugar is lowered sv Output: 17:00 Urine: 750ml (Voided); Total: 750ml. sv Outcome: 17:58 Discharge ordered by MD. [email or web address] 18:11 Discharged to home via wheelchair. hb 18:11 Condition: stable 18:11 Discharge instructions given to patient, Instructed on discharge instructions, follow up and referral plans. medication usage, Demonstrated understanding of instructions, follow-up care, medications, Prescriptions given X 2. 18:12 Patient left the ED. hb Signatures: Marquita Ramirez RN RN Kasie Miller RN RN [facility] Wilmer Garcia MD MD tw Torie Short RN RN 1 Brittany Starr RN ph Corrections: (The following items were deleted from the chart) 14:40 14:36 Pulse 119bpm; Pulse Ox 83% RA; ll1 hb
--- NOTE | 2020-06-12 17:59 | EDPHYS ---
Physician Documentation [facility] Name: Alexandro Reinoso Age: 74 yrs Sex: Male : 1945 Arrival Date: 06/12/2020 Time: 14:35 Bed 3 Private MD: ED Physician Wilmer Garcia HPI: 06/12 15:07 This 74 yrs old Male presents to ER via Wheelchair with complaints of tw4 Shortness Of Breath. 15:07 The patient has shortness of breath at rest. Onset: The symptoms/episode began/occurred tw4 yesterday. Duration: The symptoms are continuous, and are unchanged since they started. The patient's shortness of breath is aggravated by exertion, is alleviated by nothing. Associated signs and symptoms: The patient has no apparent associated signs or symptoms. Severity of symptoms: At their worst the symptoms were moderate in the emergency department the symptoms are unchanged. The patient has not experienced similar symptoms in the past. Historical: - Allergies: 14:52 PENICILLINS; hb - Home Meds: 14:52 aspirin 81 mg Oral TbEC 1 tab once daily [Active]; diltiazem HCl 240 mg Oral CDER 1 cap hb once daily [Active]; elipta inhaler [Active]; hydrochlorothiazide 12.5 mg Oral cap 1 cap once daily [Active]; rosuvastatin 20 mg Oral tab 1 tab once daily [Active]; - PMHx: 14:52 CAD; COPD; High Cholesterol; Hypertension; Myocardial infarction; hb - PSHx: 14:52 CABG; hb - Immunization history:: Adult Immunizations up to date. - Social history:: Smoking status: Patient denies any tobacco usage or history of. ROS: 15:07 Constitutional: Negative for fever, chills, and weight loss, Eyes: Negative for injury, tw4 pain, redness, and discharge, Cardiovascular: Negative for chest pain, palpitations, and edema, Abdomen/GI: Negative for abdominal pain, nausea, vomiting, diarrhea, and constipation, Back: Negative for injury and pain, MS/Extremity: Negative for injury and deformity, Skin: Negative for injury, rash, and discoloration, Neuro: Negative for headache, weakness, numbness, tingling, and seizure. 15:07 Respiratory: Positive for shortness of breath, Negative for cough, dyspnea on exertion, hemoptysis, orthopnea, pleurisy, sputum production, wheezing. Exam: 15:07 Constitutional: This is a well developed, well nourished patient who is awake, alert, tw4 and in no acute distress. Head/Face: Normocephalic, atraumatic. Chest/axilla: Normal chest wall appearance and motion. Nontender with no deformity. No lesions are appreciated. Cardiovascular: Regular rate and rhythm with a normal S1 and S2. No gallops, murmurs, or rubs. Normal PMI, no JVD. No pulse deficits. Respiratory: Lungs have equal breath sounds bilaterally, clear to auscultation and percussion. No rales, rhonchi or wheezes noted. No increased work of breathing, no retractions or nasal flaring. Abdomen/GI: Soft, non-tender, with normal bowel sounds. No distension or tympany. No guarding or rebound. No evidence of tenderness throughout. Back: No spinal tenderness. No costovertebral tenderness. Full range of motion. Skin: Warm, dry with normal turgor. Normal color with no rashes, no lesions, and no evidence of cellulitis. MS/ Extremity: Pulses equal, no cyanosis. Neurovascular intact. Full, normal range of motion. Neuro: Awake and alert, GCS 15, oriented to person, place, time, and situation. Cranial nerves II-XII grossly intact. Motor strength 5/5 in all extremities. Sensory grossly intact. Cerebellar exam normal. Normal gait. Vital Signs: 14:36 Pulse 119; Pulse Ox 80% on R/A; hb 14:40 Pulse Ox 83% on 2 lpm NC; hb 14:46 BP 190 / 91; Pulse 121; Resp 17; Temp 98.3; Pulse Ox 97% on 3 lpm NC; Weight 73.94 kg; hb Height 5 ft. 6 in. (167.64 cm); Pain 0/10; 15:41 BP 139 / 78; Pulse 104; Resp 22; Pulse Ox 99% on 2 lpm NC; sv 16:24 BP 159 / 97; Pulse 111; Resp 15; Pulse Ox 98% on 2 lpm NC; sv 17:26 BP 158 / 98; Pulse 102; Resp 15; Pulse Ox 98% on 2 lpm NC; sv 18:03 BP 144 / 98; Pulse 94; Resp 17; Pulse Ox 100% on 2 lpm NC; sv 14:46 Body Mass Index 26.31 (73.94 kg, 167.64 cm) hb MDM: 14:38 Patient medically screened. 06/12 14:40 Order name: Blood Culture Adult (2) 06/12 14:40 Order name: BMP 06/12 14:40 Order name: CBC with Diff 06/12 14:40 Order name: Ckmb 06/12 14:40 Order name: CPK 06/12 14:40 Order name: D-Dimer 06/12 14:40 Order name: Hepatic Function 06/12 14:40 Order name: Lipase 06/12 14:40 Order name: Magnesium 06/12 14:40 Order name: NT PRO-BNP 06/12 14:40 Order name: PT-INR 06/12 14:40 Order name: Ptt, Activated 06/12 14:40 Order name: Troponin (emerg Dept Use Only) 06/12 15:28 Order name: Glucose, Ancillary Testing; Complete Time: 16:02 ED06/12 16:01 Order name: CBC with Automated Diff; Complete Time: 16:02 MS 06/12 16:01 Order name: Protime (+INR); Complete Time: 16:02 MS 06/12 16:01 Order name: PTT, Activated Partial Thromb; Complete Time: 16:02 06/12 16:01 Order name: D-Dimer; Complete Time: 16:02 06/12 16:03 Order name: Basic Metabolic Panel; Complete Time: 18:00 EDMS 06/12 18:01 Interpretation: Normal except: GLUC 348; BUN 19; CL 97; GFR 72. 06/12 16:03 Order name: Liver (Hepatic) Function; Complete Time: 18:00 EDMS 06/12 18:01 Interpretation: Normal except: A/G 0.8; GLOB 3.8; ALB 3.1; AST 14. 06/12 16:03 Order name: Creatine Phosphokinase; Complete Time: 18:00 EDMS 06/12 18:01 Interpretation: Within normal limits: CPK 59. 06/12 16:03 Order name: CKMB Creatine Kinase MB; Complete Time: 18:00 EDMS 06/12 18:01 Interpretation: Abnormal: CKMB 4.4. 06/12 16:03 Order name: Troponin (Emerg Dept Use Only); Complete Time: 18:00 EDMS 06/12 18:01 Interpretation: Within normal limits: TROPED 0.02. 06/12 16:03 Order name: NT PRO-BNP; Complete Time: 18:00 EDMS 06/12 18:01 Interpretation: Abnormal: NT PRO-BNP 510. 06/12 16:03 Order name: Magnesium; Complete Time: 18:00 EDMS 06/12 18:01 Interpretation: Within normal limits: MG 2.1. 06/12 16:03 Order name: Lipase; Complete Time: 18:00 EDMS 06/12 18:01 Interpretation: Within normal limits: LIP 146. 06/12 16:04 Order name: COVID-19 : Document "Date of Symptom Onset" if Symptomatic. 06/12 16:42 Order name: CORONAVIRUS EDHI 06/12 17:11 Order name: Glucose, Ancillary Testing; Complete Time: 18:00 EDMS 06/12 18:01 Interpretation: Abnormal: GLUC,ANCIL 143. 06/12 17:43 Order name: SARS-COV-2 RT PCR; Complete Time: 18:00 EDMS 06/12 18:02 Interpretation: Within normal limits: SARSCOV2 RT PCR NEGATIVE. 06/12 14:40 Order name: XRAY CXR (1 view) 06/12 14:40 Order name: EKG; Complete Time: 14:41 06/12 14:40 Order name: Cardiac monitoring; Complete Time: 15:02 06/12 14:40 Order name: EKG - Nurse/Tech; Complete Time: 15:11 06/12 14:40 Order name: IV Saline Lock; Complete Time: 15:45 06/12 14:40 Order name: Labs collected and sent; Complete Time: 15:45 06/12 14:40 Order name: O2 Per Protocol; Complete Time: 15:02 06/12 14:40 Order name: O2 Sat Monitoring; Complete Time: 15:02 06/12 16:41 Order name: RAD; Complete Time: 18:00 EDMS EC:06 Rate is 104 beats/min. Rhythm is regular. QRS Bypro is Normal. OH interval is normal. tw4 QRS interval is normal. QT interval is normal. No Q waves. No ST changes noted. Clinical impression: NSR w/ Non-specific ST/T Changes. Interpreted by me. Reviewed by me. Administered Medications: 16:17 Drug: Insulin Regular Human 5 units {Co-Signature: ph (Brittany Starr RN).} Route: IVP; sv Site: right antecubital; 17:11 Follow up: Response: No adverse reaction; Blood sugar is lowered sv Disposition: 06/12/20 17:58 Discharged to Home. Impression: Hyperglycemia, unspecified, Chronic obstructive pulmonary disease with (acute) exacerbation. - Condition is Stable. - Discharge Instructions: Chronic Obstructive Pulmonary Disease, Hyperglycemia. - Prescriptions for Albuterol Sulfate 2.5 mg /3 mL (0.083 %) Inhalation Solution for Nebulization - inhale 1 unit by NEBULIZATION route every 8 hours As needed; 1 box. Zithromax Z- Rito 250 mg Oral Tablet - take 1 tablet by ORAL route as directed for 5 days Day 1 - take two (2) tablets one time. Day 2, 3, 4 , 5 take one (1) tablet once daily.; 6 tablet. - Medication Reconciliation Form, Thank You Letter, Antibiotic Education, Prescription Opioid Use form. - Follow up: Private Physician; When: Upon discharge from the Emergency Department; Reason: Recheck today's complaints, Continuance of care, Re-evaluation by your physician. Follow up: Jasvir Mansfield MD; When: Upon discharge from the Emergency Department; Reason: Recheck today's complaints, Continuance of care, Re-evaluation by your physician. - Problem is new. - Symptoms have improved. Signatures: Dispatcher [employer] EDHI Marquita Ramirez RN RN Kasie Miller RN RN Wilmer Garcia MD MD tw4 Brittany Starr RN ph Corrections: (The following items were deleted from the chart) 18:12 17:58 06/12/2020 17:58 Discharged to Home. Impression: Hyperglycemia, unspecified; hb Chronic obstructive pulmonary disease with (acute) exacerbation. Condition is Stable. Forms are Medication Reconciliation Form, Thank You Letter, Antibiotic Education, Prescription Opioid Use. Follow up: Private Physician; When: Upon discharge from the Emergency Department; Reason: Recheck today's complaints, Continuance of care, Re-evaluation by your physician. Follow up: Jasvir Mansfield; When: Upon discharge from the Emergency Department; Reason: Recheck today's complaints, Continuance of care, Re-evaluation by your physician. Problem is new. Symptoms have improved. tw4
[2020-06-12 18:19] VITALS: TEMP 98.3
[2020-06-12 18:24] VITALS: BP 144/98; O2SAT 100
--- NOTE | 2020-06-13 13:14 | EKG ---
Test Date: 2020-06-12 Test Time: 15:07:21 Validation Consultant: MAYTE MEASUREMENT RESULTS: Intervals: Rate: 104 UT: 160 QRSD: 78 QT: 334 QTc: 439 [place]: P: 97 UT: 160 QRS: 49 T: 43 INTERPRETIVE STATEMENTS: Sinus tachycardia with occasional premature ventricular complexes Otherwise normal ECG Compared to ECG 12/28/2018 21:14:25 Atrial premature complex(es) no longer present Electronically Signed On 06-13-20 13:12:34 DRAWING TRACER by Lyle Gunderson
== END 2020-06-12 18:12 | disposition home or self-care (01) ==
LOC: ER 14:32
DX: J44.1 Chronic obstructive pulmonary disease with (acute) exacerbation (principal); R73.9 Hyperglycemia, unspecified; I10 Essential (primary) hypertension; E78.00 Pure hypercholesterolemia, unspecified; Z20.822 Contact with and (suspected) exposure to COVID-19; Z79.82 Long term (current) use of aspirin; Z88.0 Allergy status to penicillin; Z95.1 Presence of aortocoronary bypass graft
CPT/HCPCS: 93005; 87040 ×2; 85025; 80048; 36415; 83735; 82550; 85610; 82947 ×2; 85379; 80076; 85730; 84484; 82553; 83690; 83880; 71045; 96374; 99285; U0003

== ENCOUNTER 2021-04-04 18:40 | Inpatient (IN) | payer OTHER, BC ==
--- OUTSIDE RECORDS SUMMARY | 2021-04-04 18:52 | XMS REPORT | Continuity of Care Document ---
:1945 Author Organization [facility] t Address [address] [place] [place] [address] Care Team Providers Name Role Phone Tavon Maciel Primary Care Physician Therapist, Pulmonary Attending Clinician Unavailable Primo Parsons MD Attending Clinician Doctor Unassigned, Name Attending Clinician Unavailable IAN KEYES Attending Clinician Unavailable IAN KEYES Admitting Clinician Unavailable Payers Payer Name Policy Type Policy Number Effective Date Expiration Date S ource Problems Condition Condition Condition Status Onset Resolution Last Treating Co mments Source Name Details Category Date Date Treatment Clinician Date No known No known Disease Unive rs active active ity of problems problems [place] [facility] Allergies, Adverse Reactions, Alerts Allergy Allergy Status Severity Reaction(s) Onset Inactive Treating Comm ents Source Name Type Date Date Clinician Penicill Propensi Active Unknown - Uni vers ins ty to See comments 01-12 ity of adverse 00:00: [place] reaction 00 Medical s Branch PENICILL Allergy Active [facility] Social History Social Habit Start Date Stop Date Quantity Comments Source History of tobacco Cigarette Smoker University of use [facility] Exposure to Not sure University of SARS-CoV-2 (event) [place] [facility] History SDOH University o f Alcohol Frequency [facility] edical Branch History SDVA University o f Alcohol Std Drinks [facility] History [facility] University o f Alcohol Binge [facility] [place] Alcohol intake 2021-03-31 2021-03-31 Ex-drinker University of 00:00:00 00:00:00 (finding) [facility] Alcohol Comment 2021-03-31 2021-03-31 6 pack/day; Universi ty of 00:00:00 00:00:00 stopped [address] [facility] Tobacco use and 2021-01-12 2021-01-12 Never used Universit y of exposure 00:00:00 00:00:00 [facility] Cigarettes smoked 2021-01-12 2021-01-12 Univers ity of current (pack per 00:00:00 00:00:00 [facility]) - Reported Branch Cigarette 2021-01-12 2021-01-12 University of pack-years 00:00:00 00:00:00 [facility] Sex Assigned [birth year] Universit y of 00:00:00 00:00:00 [facility] Smoking Status Start Date Stop Date Source Unknown if ever smoked [facility] y [facility] Former smoker 2021-01-12 00:00:00 2021-01-12 00:00:00 Universi ty of [facility] Medications Ordered Filled Start Stop Current Ordering Indication Dosage Frequency Signature Comments Components Source Medication Medication Date Date Medication? Clinician (SIG) Name Name diltiazem 2020-04 Yes 240mg Take 240 Uni vers XR 240 mg 2-03 mg by ity of 24 hr 10:12: mouth 2 [place] capsule 08 (two) Medical times [place] daily. atorvastati 2020-04 Yes 80mg Take 80 mg Univers n 80 mg 2-03 by mouth ity of tablet 10:12: at [place] [id number] bedtime. Medical Branch clopidogreL 2020-04 Yes 75mg Take 75 mg Univers 75 mg 2-03 by mouth ity of tablet 10:12: daily. [place] [address] Medical Branch nitroglycer 2020-[address] 0[address]4 U nivers in 0.4 mg 2-03 mg under ity of sublingual 10:12: the tongue [place] tablet 08 every 5 Medical (five) Branch minutes as needed for Chest pain. aspirin 81 2020-04 Yes 81mg Take 81 mg U nivers mg chewable 2-03 by mouth ity of tablet 10:12: daily. [address] albuterol 2020-04 Yes 2{puff} Inhale 2 U nivers (VENTOLIN 2-03 Puffs 4 ity of HFA) 90 10:12: (four) [place] [facility]/actuati 08 times Medical on inhaler daily. Branch famotidine 2020-04 Yes 20mg Take 20 mg U nivers 20 mg 2-03 by mouth ity of tablet 10:12: daily. [address] metFORMIN 2020-04 Yes 500mg Take 500 Uni vers 500 mg 2-03 mg by ity of tablet 10:12: mouth 2 [place] 08 (two) Medical times Branch daily with meals. spironolact 2020-04 Yes 25mg Take 25 mg Univers one 25 mg 2-03 by mouth ity of tablet 10:12: daily. [address] SITagliptin 2020-04 Yes 100mg Take 100 U nivers 100 mg 2-03 mg by ity of tablet 10:12: mouth [place] 08 daily. [facility] Branch montelukast 2020-04 Yes 10mg Take 10 mg Univers 10 mg 2-03 by mouth ity of tablet 10:12: daily. [address] revefenacin 2020-04 Yes Inhale Univ ers (YUPELRI) 2-03 daily. ity of 175 mcg/3 10:12: [place] [address] Formoterol 2020-04 Yes Inhale 2 Uni vers Fumarate 2-03 (two) ity of (PERFOROMIS 10:12: times [place] T) 20 mcg/2 08 daily. [facility] famotidine 2020-04 Yes 20mg Take 20 mg U nivers (PEPCID) 20 2-03 by mouth 2 it y of mg tablet 10:12: (two) [place] 08 times Medical daily. Branch Indication s: stopped Famotidine azithromyci 2020-04 Yes 250mg Take 1 Uni vers n 250 mg 0-01 tablet by ity of tablet 00:00: mouth [place] 00 every Medical [place], Branch Saturday and Saturday. theophyllin Yes 200mg Take 200 U nivers e 200 mg 24 9-16 mg by ity of hr capsule 14:12: [place] 2 [place] 10 (two) Medical times Branch daily. predniSONE Yes 10mg Take 10 mg U nivers 10 mg 9-16 by mouth ity of tablet 14:12: daily. [place] 10 occasional Medical ly takes Branch 5mg at PM budesonide Yes [id number] .25mg Inhale 1 Univers 0.5 mg/2 mL 9-16 mL 2 (two) it y of nebulizer 00:00: times [place] solution 00 daily. Medical Branch Vital Signs Vital Name Observation Time Observation Value Comments Source Systolic blood 2021-03-31 112 mm[Hg] manual; right [place] o f pressure 16:00:00 arm 110/58 [facility] manual Branch Diastolic blood 2021-03-31 50 mm[Hg] manual; right [place] of pressure 16:00:00 arm 110/58 [facility] Branch Heart rate 2021-03-31 101 /min University 16:00:00 [facility] Respiratory rate 2021-03-31 24 /min University 16:00:00 [facility] Body weight 2021-03-31 66.497 kg University 16:00:00 [facility] BMI 2021-03-31 24.40 kg/m2 University 16:00:00 [facility] Oxygen saturation 2021-03-31 93 /min after rest, on Universi ty of in Arterial blood 16:00:00 4 l/m [facility] by Pulse oximetry [place] Procedures Procedure Date / Time Performed Performing Clinician [facility] e ASSIGNMENT OF BENEFITS 2021-01-12 18:35:50 Doctor Unassigned, No University [facility] Name [facility] Encounters Start End Encounter Admission Attending Care Care Encounter Source Date/Time Date/Time Type Type Clinicians Facility Department ID 2021-03-31 2021-03-31 Ancillary Therapist, Vanda Pulmonary [facility] [id number] [facility] 09:35:22 13:52:53 Visit Stevan Parsons [id number] 10 ity kandy CARY [id number] Molly ghosh PROFESSIO [phone] Ne dical NAL 296 Branch [facility] 2021-01-12 2021-01-12 Orders Doctor JANAE [id number] Univers 00:00:00 00:00:00 Only Unassigned, ANDRA [id number] ity of [facility] [id number] Raman as [phone] [facility] 009 Branch Results Test Description Test Time Test Comments Results Result Comments Source BASIC METABOLIC PANEL 2019-01-01 05:39:00 Test Item Value Reference Range Interpretation Comme nts SODIUM (BEAKER) (test code 139 meq/L 136-145 = 381) POTASSIUM (BEAKER) (test 3.5 meq/L 3.5-5.1 code = 379) CHLORIDE (BEAKER) (test 104 meq/L 98-107 code = 382) CO2 (BEAKER) (test code = 28 meq/L 22-29 355) BLOOD UREA NITROGEN 9 mg/dL 7-21 (BEAKER) (test code = 354) CREATININE (BEAKER) (test 0.80 mg/dL 0.57-1.25 code = 358) GLUCOSE RANDOM (BEAKER) 98 mg/dL 70-105 (test code = 652) CALCIUM (BEAKER) (test code 8.8 mg/dL 8.4-10.2 = 697) EGFR (BEAKER) (test code = 95 mL/min/1.73 sq m ESTIMATED GFR IS NOT 1092) ACCURATE CRE ATININE CLEARANCE IN HI EDICTING GLOMERULAR FILT RATION RATE. ESTIMATED GFR IS NOT APPLICABLE FOR DIALYSIS PATIENTS. CBC W/PLT COUNT & AUTO [id number] 05:12:00 Test Item Value Reference Range Interpretation Comments WHITE BLOOD CELL COUNT (BEAKER) 6.6 K/ L 3.5-10.5 (test code = 775) RED BLOOD CELL COUNT (BEAKER) 4.06 M/ L 4.63-6.08 L (test code = 761) HEMOGLOBIN (BEAKER) (test code = 12.0 GM/DL 13.7-17.5 L 410) HEMATOCRIT (BEAKER) (test code = 35.8 % 40.1-51.0 L 411) MEAN CORPUSCULAR VOLUME (BEAKER) 88.2 fL 79.0-92.2 (test code = 753) MEAN CORPUSCULAR HEMOGLOBIN 29.6 pg 25.7-32.2 (BEAKER) (test code = 751) MEAN CORPUSCULAR HEMOGLOBIN CONC 33.5 GM/DL 32.3-36.5 (BEAKER) (test code = 752) RED CELL DISTRIBUTION WIDTH 12.6 % 11.6-14.4 (BEAKER) (test code = 412) PLATELET COUNT (BEAKER) (test 147 K/CU MM 150-450 L code = 756) MEAN PLATELET VOLUME (BEAKER) 10.5 fL 9.4-12.4 (test code = 754) NUCLEATED RED BLOOD CELLS 0 /100 WBC 0-0 (BEAKER) (test code = 413) NEUTROPHILS RELATIVE PERCENT 62 % (BEAKER) (test code = 429) LYMPHOCYTES RELATIVE PERCENT 18 % (BEAKER) (test code = 430) MONOCYTES RELATIVE PERCENT 10 % (BEAKER) (test code = 431) EOSINOPHILS RELATIVE PERCENT 9 % (BEAKER) (test code = 432) BASOPHILS RELATIVE PERCENT 1 % (BEAKER) (test code = 437) NEUTROPHILS ABSOLUTE COUNT 4.13 K/ L 1.78-5.38 (BEAKER) (test code = 670) LYMPHOCYTES ABSOLUTE COUNT 1.19 K/ L 1.32-3.57 L (BEAKER) (test code = 414) MONOCYTES ABSOLUTE COUNT (BEAKER) 0.65 K/ L 0.30-0.82 (test code = 415) EOSINOPHILS ABSOLUTE COUNT 0.60 K/ L 0.04-0.54 H (BEAKER) (test code = 416) BASOPHILS ABSOLUTE COUNT (BEAKER) 0.04 K/ L 0.01-0.08 (test code = 417) IMMATURE GRANULOCYTES-RELATIVE 0 % 0-1 PERCENT (BEAKER) (test code = 2801) [id number] 10:40:00 Test Item Value Reference Range Interpretation Comments MAGNESIUM (BEAKER) (test code = 1.9 mg/dL 1.6-2.6 627) BASIC METABOLIC [id number] 06:22:00 Test Item Value Reference Range Interpretation Comments SODIUM (BEAKER) 138 meq/L 136-145 (test code = 381) POTASSIUM (BEAKER) 4.0 meq/L 3.5-5.1 Specimen moderately (test code = 379) hemolyzed CHLORIDE (BEAKER) 103 meq/L 98-107 (test code = 382) CO2 (BEAKER) (test 30 meq/L 22-29 H code = 355) BLOOD UREA NITROGEN 8 mg/dL 7-21 (BEAKER) (test code = 354) CREATININE (BEAKER) 0.81 mg/dL 0.57-1.25 Specimen moderately (test code = 358) hemolyzed GLUCOSE RANDOM 106 mg/dL 70-105 H (BEAKER) (test code = 652) CALCIUM (BEAKER) 9.1 mg/dL 8.4-10.2 (test code = 697) EGFR (BEAKER) (test 94 mL/min/1.73 ESTIMA WANDA GFR IS code = 1092) sq m NOT ACCURATE CREATININE CLEARANCE IN PREDICTING GLOMERULAR FILTRATION RATE . ESTIMATED GFR I S NOT APPLICABLE FOR DIALYSIS PATIEN TS. TROPONIN [id number] 06:07:00 Test Item Value Reference Range Interpretation Comments TROPONIN I (BEAKER) (test code = 6.80 ng/mL 0.00-0.03 HH 397) Troponin I (TnI) levels must be interpreted in the context of the presenting symptoms and the clinical findings. Elevated TnI levels indicate myocardial damage, but are not specific for ischemic heart disease. Elevated TnI levels are seen in patients with other cardiac conditions (including myocarditis and congestive heart failure), and slight TnI elevations occur in patients with other conditions, including sepsis, renal failure, acidosis, acute neurological disease, and persistent tachyarrhythmia.CBC W/PLT COUNT & AUTO DIFFERENTIAL 2018-12-31 05:38:00 Test Item Value Reference Range Interpretation Comments WHITE BLOOD CELL COUNT (BEAKER) 7.5 K/ L 3.5-10.5 (test code = 775) RED BLOOD CELL COUNT (BEAKER) 4.00 M/ L 4.63-6.08 L (test code = 761) HEMOGLOBIN (BEAKER) (test code = 11.9 GM/DL 13.7-17.5 L 410) HEMATOCRIT (BEAKER) (test code = 35.7 % 40.1-51.0 L 411) MEAN CORPUSCULAR VOLUME (BEAKER) 89.3 fL 79.0-92.2 (test code = 753) MEAN CORPUSCULAR HEMOGLOBIN 29.8 pg 25.7-32.2 (BEAKER) (test code = 751) MEAN CORPUSCULAR HEMOGLOBIN CONC 33.3 GM/DL 32.3-36.5 (BEAKER) (test code = 752) RED CELL DISTRIBUTION WIDTH 12.6 % 11.6-14.4 (BEAKER) (test code = 412) PLATELET COUNT (BEAKER) (test 146 K/CU MM 150-450 L code = 756) MEAN PLATELET VOLUME (BEAKER) 10.5 fL 9.4-12.4 (test code = 754) NUCLEATED RED BLOOD CELLS 0 /100 WBC 0-0 (BEAKER) (test code = 413) NEUTROPHILS RELATIVE PERCENT 65 % (BEAKER) (test code = 429) LYMPHOCYTES RELATIVE PERCENT 14 % (BEAKER) (test code = 430) MONOCYTES RELATIVE PERCENT 13 % (BEAKER) (test code = 431) EOSINOPHILS RELATIVE PERCENT 7 % (BEAKER) (test code = 432) BASOPHILS RELATIVE PERCENT 1 % (BEAKER) (test code = 437) NEUTROPHILS ABSOLUTE COUNT 4.87 K/ L 1.78-5.38 (BEAKER) (test code = 670) LYMPHOCYTES ABSOLUTE COUNT 1.08 K/ L 1.32-3.57 L (BEAKER) (test code = 414) MONOCYTES ABSOLUTE COUNT (BEAKER) 1.01 K/ L 0.30-0.82 H (test code = 415) EOSINOPHILS ABSOLUTE COUNT 0.49 K/ L 0.04-0.54 (BEAKER) (test code = 416) BASOPHILS ABSOLUTE COUNT (BEAKER) 0.04 K/ L 0.01-0.08 (test code = 417) IMMATURE GRANULOCYTES-RELATIVE 0 % 0-1 PERCENT (BEAKER) (test code = 2801) VANCOMYCIN LEVEL, [id number] 15:51:00 Test Item Value Reference Range Interpretation Comments VANCOMYCIN TROUGH (BEAKER) (test 7.0 ug/mL 10.0-20.0 L code = 522) [id number] 11:25:00 Test Item Value Reference Range Interpretation Comments PARTIAL THROMBOPLASTIN TIME 77.4 seconds 22.5-36.0 H (BEAKER) (test code = 760) RAD, CHEST, 1 VIEW, NON [id number] 09:31:00Reason for exam:->Balloon Pump Positioning; perform at bedsideShould this be performed at the bedside?->Yes FINAL REPORT CLINICAL HISTORY: Balloon Pump Positioning; perform at bedside TECHNIQUE: 1 view of the chest. COMPARISON: None IMPRESSION: The radiopaque tip of the IABP catheter projects approximately 3.2 cm below the apex of the aortic knob. There are diffuse bilateral interstitial lung opacities with a bibasilar predominance. There is no significant pleural fluid. The cardiomediastinal silhouette is magnified by technique with sternotomy wires. Signed: Kalina Watkins MDReport Verified Date/Time: 12/30/2018 09:31:26 Reading Location: [facility] Radiology Reading Room [id number] 03:22:00 Test Item Value Reference Range Interpretation Comments MAGNESIUM (BEAKER) (test code = 2.0 mg/dL 1.6-2.6 627) BASIC METABOLIC [id number] 03:22:00 Test Item Value Reference Range Interpretation Comments SODIUM (BEAKER) 139 meq/L 136-145 (test code = 381) POTASSIUM (BEAKER) 3.7 meq/L 3.5-5.1 (test code = 379) CHLORIDE (BEAKER) 105 meq/L 98-107 (test code = 382) CO2 (BEAKER) (test 28 meq/L 22-29 code = 355) BLOOD UREA NITROGEN 12 mg/dL 7-21 (BEAKER) (test code = 354) CREATININE (BEAKER) 0.89 mg/dL 0.57-1.25 (test code = 358) GLUCOSE RANDOM 123 mg/dL 70-105 H (BEAKER) (test code = 652) CALCIUM (BEAKER) 9.3 mg/dL 8.4-10.2 (test code = 697) EGFR (BEAKER) (test 84 mL/min/1.73 ESTIMA WANDA GFR IS code = 1092) sq m NOT ACCURATE CREATININE CLEARANCE IN PREDICTING GLOMERULAR FILTRATION RATE . ESTIMATED GFR I S NOT APPLICABLE FOR DIALYSIS PATIEN TS. [id number] 03:18:00 Test Item Value Reference Range Interpretation Comments PARTIAL THROMBOPLASTIN TIME 81.6 seconds 22.5-36.0 H (BEAKER) (test code = 760) CBC W/PLT COUNT & AUTO [id number] 03:08:00 Test Item Value Reference Range Interpretation Comments WHITE BLOOD CELL COUNT (BEAKER) 8.1 K/ L 3.5-10.5 (test code = 775) RED BLOOD CELL COUNT (BEAKER) 4.06 M/ L 4.63-6.08 L (test code = 761) HEMOGLOBIN (BEAKER) (test code = 12.0 GM/DL 13.7-17.5 L 410) HEMATOCRIT (BEAKER) (test code = 35.9 % 40.1-51.0 L 411) MEAN CORPUSCULAR VOLUME (BEAKER) 88.4 fL 79.0-92.2 (test code = 753) MEAN CORPUSCULAR HEMOGLOBIN 29.6 pg 25.7-32.2 (BEAKER) (test code = 751) MEAN CORPUSCULAR HEMOGLOBIN CONC 33.4 GM/DL 32.3-36.5 (BEAKER) (test code = 752) RED CELL DISTRIBUTION WIDTH 12.9 % 11.6-14.4 (BEAKER) (test code = 412) PLATELET COUNT (BEAKER) (test 149 K/CU MM 150-450 L code = 756) MEAN PLATELET VOLUME (BEAKER) 10.8 fL 9.4-12.4 (test code = 754) NUCLEATED RED BLOOD CELLS 0 /100 WBC 0-0 (BEAKER) (test code = 413) NEUTROPHILS RELATIVE PERCENT 71 % (BEAKER) (test code = 429) LYMPHOCYTES RELATIVE PERCENT 14 % (BEAKER) (test code = 430) MONOCYTES RELATIVE PERCENT 10 % (BEAKER) (test code = 431) EOSINOPHILS RELATIVE PERCENT 3 % (BEAKER) (test code = 432) BASOPHILS RELATIVE PERCENT 1 % (BEAKER) (test code = 437) NEUTROPHILS ABSOLUTE COUNT 5.74 K/ L 1.78-5.38 H (BEAKER) (test code = 670) LYMPHOCYTES ABSOLUTE COUNT 1.14 K/ L 1.32-3.57 L (BEAKER) (test code = 414) MONOCYTES ABSOLUTE COUNT (BEAKER) 0.84 K/ L 0.30-0.82 H (test code = 415) EOSINOPHILS ABSOLUTE COUNT 0.27 K/ L 0.04-0.54 (BEAKER) (test code = 416) BASOPHILS ABSOLUTE COUNT (BEAKER) 0.05 K/ L 0.01-0.08 (test code = 417) IMMATURE GRANULOCYTES-RELATIVE 0 % 0-1 PERCENT (BEAKER) (test code = 2801) [id number] 19:07:00 Test Item Value Reference Range Interpretation Comments PARTIAL THROMBOPLASTIN TIME 55.9 seconds 22.5-36.0 H (BEAKER) (test code = 760) TROPONIN [id number] 17:30:00 Test Item Value Reference Range Interpretation Comments TROPONIN I (BEAKER) (test code = 21.60 ng/mL 0.00-0.03 397) Troponin I (TnI) levels must be interpreted in the context of the presenting symptoms and the clinical findings. Elevated TnI levels indicate myocardial damage, but are not specific for ischemic heart disease. Elevated TnI levels are seen in patients with other cardiac conditions (including myocarditis and congestive heart failure), and slight TnI elevations occur in patients with other conditions, including sepsis, renal failure, acidosis, acute neurological disease, and persistent tachyarrhythmia.[id number] 17:17:00 Test Item Value Reference Range Interpretation Comments POTASSIUM (BEAKER) (test code = 4.2 meq/L 3.5-5.1 379) [id number] 17:17:00 Test Item Value Reference Range Interpretation Comments MAGNESIUM (BEAKER) (test code = 2.2 mg/dL 1.6-2.6 627) HEMOGLOBIN [id number] 08:08:00 Test Item Value Reference Range Interpretation Comments HEMOGLOBIN A1C (BEAKER) (test code = 6.1 % 4.3-6.1 368) [id number] 04:35:00 Test Item Value Reference Range Interpretation Comments ACTIVATED CLOTTING TIME 180 sec TEST ED AT [facility] 6720 ([place]) (test code = [place]) [id number] TSH/FREE T4 IF [id number] 04:24:00 Test Item Value Reference Range Interpretation Comments THYROID STIMULATING HORMONE 1.52 uIU/mL 0.35-4.94 (BEAKER) (test code = 772) TROPONIN [id number] 04:19:00 Test Item Value Reference Range Interpretation Comments TROPONIN I (BEAKER) (test code = 46.32 ng/mL 0.00-0.03 397) Troponin I (TnI) levels must be interpreted in the context of the presenting symptoms and the clinical findings. Elevated TnI levels indicate myocardial damage, but are not specific for ischemic heart disease. Elevated TnI levels are seen in patients with other cardiac conditions (including myocarditis and congestive heart failure), and slight TnI elevations occur in patients with other conditions, including sepsis, renal failure, acidosis, acute neurological disease, and persistent tachyarrhythmia.[id number] 04:17:00 Test Item Value Reference Range Interpretation Comments PARTIAL THROMBOPLASTIN TIME > seconds 22.5-36.0 HH (BEAKER) (test code = 760) [id number] 04:11:00 Test Item Value Reference Range Interpretation Comments MAGNESIUM (BEAKER) (test code = 1.8 mg/dL 1.6-2.6 627) BASIC METABOLIC [id number] 04:11:00 Test Item Value Reference Range Interpretation Comments SODIUM (BEAKER) 134 meq/L 136-145 L (test code = 381) POTASSIUM (BEAKER) 3.6 meq/L 3.5-5.1 (test code = 379) CHLORIDE (BEAKER) 102 meq/L 98-107 (test code = 382) CO2 (BEAKER) (test 22 meq/L 22-29 code = 355) BLOOD UREA NITROGEN 17 mg/dL 7-21 (BEAKER) (test code = 354) CREATININE (BEAKER) 0.80 mg/dL 0.57-1.25 (test code = 358) GLUCOSE RANDOM 132 mg/dL 70-105 H (BEAKER) (test code = 652) CALCIUM (BEAKER) 8.8 mg/dL 8.4-10.2 (test code = 697) EGFR (BEAKER) (test 95 mL/min/1.73 ESTIMA WANDA GFR IS code = 1092) sq m NOT ACCURATE CREATININE CLEARANCE IN PREDICTING GLOMERULAR FILTRATION RATE . ESTIMATED GFR I S NOT APPLICABLE FOR DIALYSIS PATIEN TS. LIPID [id number] 04:11:00 Test Item Value Reference Range Interpretation Comments TRIGLYCERIDES (BEAKER) (test code = 42 mg/dL 540) CHOLESTEROL (BEAKER) (test code = 142 mg/dL 631) HDL CHOLESTEROL (BEAKER) (test code 50 mg/dL = 976) LDL CHOLESTEROL CALCULATED (BEAKER) 84 mg/dL (test code = 633) Triglyceride Reference Range: Low Risk <150 Borderline 150-199 High Risk 200-499 Very High Risk >=500Cholesterol Reference Range: Low Risk <200 Borderline 200-239 High Risk >240HDL Cholesterol Reference Range: Low Risk >=60 High Risk <40LDL Cholesterol Reference Range: Optimal <100 Near Optimal 100-129 Borderline 130-159 High 160-189 Very High >=190CBC W/PLT COUNT & AUTO [id number] 03:39:00 Test Item Value Reference Range Interpretation Comments WHITE BLOOD CELL COUNT (BEAKER) 12.1 K/ L 3.5-10.5 H (test code = 775) RED BLOOD CELL COUNT (BEAKER) 4.72 M/ L 4.63-6.08 (test code = 761) HEMOGLOBIN (BEAKER) (test code = 14.1 GM/DL 13.7-17.5 410) HEMATOCRIT (BEAKER) (test code = 41.5 % 40.1-51.0 411) MEAN CORPUSCULAR VOLUME (BEAKER) 87.9 fL 79.0-92.2 (test code = 753) MEAN CORPUSCULAR HEMOGLOBIN 29.9 pg 25.7-32.2 (BEAKER) (test code = 751) MEAN CORPUSCULAR HEMOGLOBIN CONC 34.0 GM/DL 32.3-36.5 (BEAKER) (test code = 752) RED CELL DISTRIBUTION WIDTH 12.5 % 11.6-14.4 (BEAKER) (test code = 412) PLATELET COUNT (BEAKER) (test 220 K/CU MM 150-450 code = 756) MEAN PLATELET VOLUME (BEAKER) 10.8 fL 9.4-12.4 (test code = 754) NUCLEATED RED BLOOD CELLS 0 /100 WBC 0-0 (BEAKER) (test code = 413) NEUTROPHILS RELATIVE PERCENT 84 % (BEAKER) (test code = 429) LYMPHOCYTES RELATIVE PERCENT 8 % (BEAKER) (test code = 430) MONOCYTES RELATIVE PERCENT 7 % (BEAKER) (test code = 431) EOSINOPHILS RELATIVE PERCENT 0 % (BEAKER) (test code = 432) BASOPHILS RELATIVE PERCENT 0 % (BEAKER) (test code = 437) NEUTROPHILS ABSOLUTE COUNT 10.09 K/ L 1.78-5.38 H (BEAKER) (test code = 670) LYMPHOCYTES ABSOLUTE COUNT 1.01 K/ L 1.32-3.57 L ([facility]) (test code = 414) MONOCYTES ABSOLUTE COUNT (BEAKER) 0.87 K/ L 0.30-0.82 H (test code = 415) EOSINOPHILS ABSOLUTE COUNT 0.03 K/ L 0.04-0.54 L (BEAKER) (test code = 416) BASOPHILS ABSOLUTE COUNT (AKER) 0.02 K/ L 0.01-0.08 (test code = 417) IMMATURE GRANULOCYTES-RELATIVE 1 % 0-1 PERCENT ([facility]) (test code = 2801) [id number] 02:12:00 Test Item Value Reference Range Interpretation Comments ACTIVATED CLOTTING TIME 241 sec TEST ED AT [place] [address] ([facility]) (test code = [place] [address]) [id number] 00:38:00 Test Item Value Reference Range Interpretation Comments ACTIVATED CLOTTING TIME 257 sec TEST ED AT [place] [address] ([facility]) (test code = [place] [address]) [id number] 00:38:00 Test Item Value Reference Range Interpretation Comments ACTIVATED CLOTTING TIME 202 sec TEST ED AT [place] [address] ([facility]) (test code = [place] [address]) [id number]
[2021-04-04] MEDS ORDERED: ALBUTEROL 2.5 MG/3 ML NEB SOL ONE (19:22)
[2021-04-04] MEDS ORDERED: IPRATROPIUM BROM 0.5MG/2.5ML ONE (19:22)
[2021-04-04] MEDS ORDERED: METHYLPREDNISOLONE 125 MG INJ ONE (19:22)
[2021-04-04 19:40] LABS: Arterial Blood Carboxyhemoglob 1.8 % (0-1.5); Blood Gas Oxyhemoglobin 93.6 % (94-97); Blood O2 Saturation 96.4 % (92-98.5)
[2021-04-04 20:14] LABS: Absolute Lymphocytes (CBC) 0.2 K/uL (0.7-4.9); Basophils % 0.4 % (0-1.3); Hematocrit 43.8 % (39.6-49.0); Lymphocytes % 1.9 % (15.3-44.8); MPV 8.9 fL (7.6-11.3); RBC Red Blood Cell Count 4.92 M/uL (4.33-5.43)
--- NOTE | 2021-04-04 20:19 | RAD REPORT ---
EXAM DESCRIPTION: [place] Single View04/04/2021 7:25 pm CLINICAL HISTORY: Shortness breath COMPARISON: September 2020 FINDINGS: Moderate bilateral pulmonary opacities. Heart is enlarged. Postsurgical changes involve th e chest. Lungs are hyperaerated IMPRESSION: Moderate bilateral pulmonary opacities could represent pneumonia or pulmonary edema sup erimposed over pulmonary fibrosis
[2021-04-04 20:20] LABS: Albumin 3.3 g/dL (3.4-5.0); Bilirubin Direct 0.2 mg/dL (0-0.2); Bilirubin Total 0.8 mg/dL (0.2-1.0); Potassium 4.8 mmol/L (3.5-5.1); Protein, Total 7.4 g/dL (6.4-8.2); Troponin (Emerg Dept Use Only) 0.02 ng/mL (0.0-0.045)
[2021-04-04 20:24] LABS: Protime INR 1.01
[2021-04-04 20:39] LABS: SARS-COV-2 RT PCR NEGATIVE (NEGATIVE)
[2021-04-04 21:00] LABS: Blood Morphology Comment NOTED (NOT SEEN); Burr Cells 1+; Platelet Estimate ADEQ
[2021-04-04] MEDS ORDERED: FUROSEMIDE 20 MG/ 2ML VIAL ONE (21:04)
--- NOTE | 2021-04-04 21:08 | ER ---
Nurse's Notes [facility] Name: Alexandro Reinoso Age: 75 yrs Sex: Male : 1945 Arrival Date: 04/04/2021 Time: 18:41 Bed 3 Private MD: Diagnosis: COPD/ Chronic obstructive pulmonary disease with (acute) exacerbation;Pneumonia, unspecified organism;Acute pulmonary edema Presentation: 04/04 18:47 Chief complaint: Patient states: I have been having trouble breathing X 3 days. At home ld1 I was not able to keep my oxygen above 85. When I would get up and do anything at all it would drop into the 60s. Upon arrival to ER pt was 59 on RA. Pt recently changed pulmonary doctor. Coronavirus screen: At this time, the client does not indicate any symptoms associated with coronavirus-19. Ebola Screen: No symptoms or risks identified at this time. Initial Sepsis Screen: Does the patient meet any 2 criteria? No. Patient's initial sepsis screen is negative. Does the patient have a suspected source of infection? No. Patient's initial sepsis screen is negative. Risk Assessment: Do you want to hurt yourself or someone else? Patient reports no desire to harm self or others. Onset of symptoms was April 04, 2021. 18:47 Method Of Arrival: Wheelchair ld1 18:47 Acuity: SAMUEL 2 ld1 18:58 Initial Sepsis Screen: Does the patient meet any 2 criteria? RR > 20 per min. HR > 90 iw bpm. Does the patient have a suspected source of infection? Yes: Productive cough/pneumonia. Triage Assessment: 18:51 General: Appears in no apparent distress. comfortable, Behavior is calm, cooperative, ld1 appropriate for age. Pain: Denies pain. EENT: No signs and/or symptoms were reported regarding the EENT system. Neuro: Level of Consciousness is awake, alert, obeys commands, Oriented to person, place, time, situation, Appropriate for age. Cardiovascular: Capillary refill < 3 seconds Patient's skin is warm and dry. Respiratory: Airway is patent Respiratory effort is even, unlabored, Respiratory pattern is regular, symmetrical. GI: Abdomen is flat, non-distended. : No signs and/or symptoms were reported regarding the genitourinary system. Derm: No signs and/or symptoms reported regarding the dermatologic system. Musculoskeletal: No signs and/or symptoms reported regarding the musculoskeletal system. Historical: - Allergies: 18:51 PENICILLINS; ld1 - Home Meds: 18:51 aspirin 81 mg Oral TbEC 1 tab once daily [Active]; diltiazem HCl 240 mg Oral CDER 1 cap ld1 once daily [Active]; elipta inhaler [Active]; hydrochlorothiazide 12.5 mg Oral cap 1 cap once daily [Active]; rosuvastatin 20 mg Oral tab 1 tab once daily [Active]; - PMHx: 18:51 CAD; COPD; High Cholesterol; Hypertension; Myocardial infarction; ld1 - PSHx: 18:51 Heart surgery; ld1 - Immunization history:: Adult Immunizations up to date, Client reports receiving the 2nd dose of the Covid vaccine. - Social history:: Smoking status: Patient denies any tobacco usage or history of. Patient/guardian denies using alcohol. Screenin:55 Abuse screen: Denies threats or abuse. Denies injuries from another. Nutritional bp screening: No deficits noted. Tuberculosis screening: No symptoms or risk factors identified. Fall Risk None identified. Assessment: 18:55 General: SEE TRIAGE NOTE. bp 19:47 Pain: Denies pain. Neuro: No deficits noted. Cardiovascular: Rhythm is sinus tw5 tachycardia. Respiratory: Airway is patent Trachea midline Respiratory effort is labored, pursed lip, with retractions, Respiratory pattern is tachypnea patient states that he was using 10-15 L at home with his home oxygen tank. He states his oxygen had dropped to 60 and he had a difficult time increasing it. 21:08 Reassessment: No changes from previously documented assessment. Patient states feeling tw5 better. Patient states symptoms have improved. 22:11 General: Appears in no apparent distress. Behavior is calm, cooperative, appropriate tw5 for age. Cardiovascular: Rhythm is sinus tachycardia. Respiratory: Airway is patent Trachea midline Respiratory effort is even, unlabored, pursed lip, Respiratory pattern is regular. 12 00:50 General: Reports " Feeling pretty good. Been feeling better for the last hour.". tw5 Vital Signs: 04/04 18:47 BP 149 / 93; Pulse 124; Resp 22; Temp 98.3(O); Pulse Ox 98% on 15% Non-rebreather mask; ld1 Weight 66.22 kg; Height 5 ft. 6 in. (167.64 cm); Pain 0/10; 19:47 BP 145 / 88; Pulse 127; Resp 20; Pulse Ox 97% on 15 lpm NC; tw5 21:08 BP 131 / 79; Pulse 115; Resp 11; Pulse Ox 97% on 15 lpm NC; tw5 22:11 BP 122 / 77; Pulse 114; Resp 14; Pulse Ox 98% on 15 lpm NC; tw5 04/05 00:50 BP 134 / 64; Pulse 103; Resp 12; Pulse Ox 92% on 10 lpm NC; tw5 04/04 18:47 Body Mass Index 23.56 (66.22 kg, 167.64 cm) ld1 04/04 19:47 high flow NC tw5 22:11 Hi flow tw5 ED Course: 18:41 Patient arrived in ED. mr 18:51 Triage completed. ld1 18:51 Arm band placed on right wrist. ld1 18:55 Patient has correct armband on for positive identification. Bed in low position. Call bp light in reach. Side rails up X2. 19:01 Reza Ltaham MD is Attending Physician. [facility] 19:04 Bhavik Dotson, SALLIE is Primary Nurse. bp 19:25 XRAY Chest (1 view) In Process Unspecified. EDMS 19:39 Awaiting lab results. tw5 19:39 Initial lab(s) drawn, by me, sent to lab. First set of blood cultures drawn by fl, tw5 COVID swab sent to lab. 19:47 [address] monitor on. Pulse ox on. NIBP on. Door closed. Moved to private room. Verbal tw5 reassurance given. 19:47 Inserted saline lock: 20 gauge in left antecubital area, using aseptic technique. Blood tw5 collected. 19:50 Basic Metabolic Panel Sent. tw5 19:50 Blood Culture Adult (2) Sent. tw5 19:50 COVID-19/FLU A+B/RSV (Document "Date of Onset" if Symptomatic) Sent. tw5 19:50 Lactate Sent. tw5 19:50 CBC with Diff Sent. tw5 19:50 LFT's Sent. tw5 19:50 Magnesium Sent. tw5 19:50 Troponin (emerg Dept Use Only) Sent. tw5 19:50 PT-INR Sent. tw5 19:50 NT PRO-BNP Sent. tw5 21:07 Александр Maciel MD is Hospitalizing Provider. [facility] 04/05 01:36 No provider procedures requiring assistance completed. Patient admitted, IV remains in tw5 place. Administered Medications: 04/04 19:27 Drug: Albuterol - atroVENT (ipratropium) (3:1) (2.5 mg - 0.5 mg) 3 ml Route: Nebulizer; tw5 19:50 Follow up: Response: No adverse reaction tw5 19:37 Drug: SOLU-Medrol (methylPrednisoLONE) 125 mg Route: IVP; Site: left antecubital; tw5 19:50 Follow up: Response: No adverse reaction tw5 21:07 Drug: Lasix (furosemide) 20 mg Route: IVP; Site: left antecubital; tw5 22:11 Follow up: Response: No adverse reaction tw5 21:22 Drug: LevaQUIN (levofloxacin) 500 mg Volume: 100 ml; Route: IVPB; Infused Over: 60 tw5 mins; Site: left antecubital; 22:11 Follow up: Response: No adverse reaction; IV Status: Completed infusion tw5 Outcome: 21:08 Decision to Hospitalize by Provider. [facility] 04/05 00:40 Admitted to Med/surg room 407, Report called to Was told the nurse estefani will be tw5 taking the patient. Receiving nurse was unable to take report at this time. 01:36 Admitted to Med/surg accompanied by nancy, with chart. tw5 01:36 Condition: improved 01:36 Instructed on the need for admit. 01:37 Patient left the ED. tw5 Signatures: Dispatcher [employer] ODETTEIA BushKate Irene, RN Bhavik Rodriguez RN RN bp Holmes, Maurice, MD MD [facility] Sujatha Bunn RN RN Bonnie Smalls tw5
--- NOTE | 2021-04-04 21:09 | EDPHYS ---
Physician Documentation [facility] Name: Alexandro Reinoso Age: 75 yrs Sex: Male : 1945 Arrival Date: 04/04/2021 Time: 18:41 Bed 3 Private MD: ED Physician Reza Latham HPI: 04/04 19:15 This 75 yrs old Male presents to ER via Wheelchair with complaints of COPD mh7 Exacerbation, Low O2 at 59. 19:15 The patient has shortness of breath at rest, with light activity. Onset: The mh7 symptoms/episode began/occurred 3 day(s) ago. Duration: The symptoms are continuous, and are steadily getting worse. The patient's shortness of breath is aggravated by coughing, light activity, is alleviated by nothing. Associated signs and symptoms: Pertinent positives: chest pain, productive cough, Pertinent negatives: non-productive cough, diaphoresis, dizziness, fever, hemoptysis, loss of consciousness, nausea, numbness in extremities, visual changes, vomiting. Severity of symptoms: At their worst the symptoms were severe today, in the emergency department the symptoms have improved moderately. The patient has experienced similar episodes in the past, chronically. Historical: - Allergies: 18:51 PENICILLINS; ld1 - Home Meds: 18:51 aspirin 81 mg Oral TbEC 1 tab once daily [Active]; diltiazem HCl 240 mg Oral CDER 1 cap ld1 once daily [Active]; elipta inhaler [Active]; hydrochlorothiazide 12.5 mg Oral cap 1 cap once daily [Active]; rosuvastatin 20 mg Oral tab 1 tab once daily [Active]; - PMHx: 18:51 CAD; COPD; High Cholesterol; Hypertension; Myocardial infarction; ld1 - PSHx: 18:51 Heart surgery; ld1 - Immunization history:: Adult Immunizations up to date, Client reports receiving the 2nd dose of the Covid vaccine. - Social history:: Smoking status: Patient denies any tobacco usage or history of. Patient/guardian denies using alcohol. ROS: 19:15 Constitutional: Negative for fever, chills, and weight loss, Eyes: Negative for injury, mh7 pain, redness, and discharge, ENT: Negative for injury, pain, and discharge, Neck: Negative for injury, pain, and swelling, Abdomen/GI: Negative for abdominal pain, nausea, vomiting, diarrhea, and constipation, Back: Negative for injury and pain, : Negative for injury, bleeding, discharge, and swelling, MS/Extremity: Negative for injury and deformity, Skin: Negative for injury, rash, and discoloration, Neuro: Negative for headache, weakness, numbness, tingling, and seizure, Psych: Negative for depression, anxiety, suicide ideation, homicidal ideation, and hallucinations, Allergy/Immunology: Negative for hives, rash, and allergies, Endocrine: Negative for neck swelling, polydipsia, polyuria, polyphagia, and marked weight changes, Hematologic/Lymphatic: Negative for swollen nodes, abnormal bleeding, and unusual bruising. Exam: 19:15 Head/Face: Normocephalic, atraumatic. Eyes: Pupils equal round and reactive to light, mh7 extra-ocular motions intact. Lids and lashes normal. Conjunctiva and sclera are non-icteric and not injected. Cornea within normal limits. Periorbital areas with no swelling, redness, or edema. Neck: Trachea midline, no thyromegaly or masses palpated, and no cervical lymphadenopathy. Supple, full range of motion without nuchal rigidity, or vertebral point tenderness. No Meningismus. Chest/axilla: Normal chest wall appearance and motion. Nontender with no deformity. No lesions are appreciated. 19:15 Abdomen/GI: Soft, non-tender, with normal bowel sounds. No distension or tympany. No guarding or rebound. No evidence of tenderness throughout. Back: No spinal tenderness. No costovertebral tenderness. Full range of motion. Skin: Warm, dry with normal turgor. Normal color with no rashes, no lesions, and no evidence of cellulitis. MS/ Extremity: Pulses equal, no cyanosis. Neurovascular intact. Full, normal range of motion. Neuro: Awake and alert, GCS 15, oriented to person, place, time, and situation. Cranial nerves II-XII grossly intact. Motor strength 5/5 in all extremities. Sensory grossly intact. Cerebellar exam normal. Normal gait. Psych: Awake, alert, with orientation to person, place and time. Behavior, mood, and affect are within normal limits. 19:15 Constitutional: The patient appears alert, awake, comfortable, in obvious distress, mildly distressed. 19:15 Cardiovascular: Rate: tachycardic, Rhythm: regular, Pulses: no pulse deficits are appreciated, Heart sounds: normal, normal S1and S2, Edema: is not appreciated, JVD: is not appreciated. 19:15 Respiratory: mild respiratory distress is noted, Respirations: prolonged exhalation, that is moderate, Breath sounds: decreased breath sounds, that are mild, are located in both bases, rhonchi, that are moderate, are scattered, wheezing: expiratory that is mild, is heard diffusely, Respiratory rate: 22 Vital Signs: 18:47 BP 149 / 93; Pulse 124; Resp 22; Temp 98.3(O); Pulse Ox 98% on 15% Non-rebreather mask; ld1 Weight 66.22 kg; Height 5 ft. 6 in. (167.64 cm); Pain 0/10; 19:47 BP 145 / 88; Pulse 127; Resp 20; Pulse Ox 97% on 15 lpm NC; tw5 21:08 BP 131 / 79; Pulse 115; Resp 11; Pulse Ox 97% on 15 lpm NC; tw5 22:11 BP 122 / 77; Pulse 114; Resp 14; Pulse Ox 98% on 15 lpm NC; tw5 12 00:50 BP 134 / 64; Pulse 103; Resp 12; Pulse Ox 92% on 10 lpm NC; tw5 04/04 18:47 Body Mass Index 23.56 (66.22 kg, 167.64 cm) ld1 12/ 19:47 high flow NC tw5 22:11 Hi flow tw5 MDM: 21:05 Differential diagnosis: Anemia Anxiety Reaction asthma, Bronchitis CHF exacerbation, mh7 Chronic Obstructive Pulmonary Disease Myocardial Infarction pneumonia, Pneumothorax Psychogenic pulmonary edema, reactive airway disease. Antibiotic administration: Levaquin given. Data reviewed: vital signs, nurses notes, old medical records, lab test result(s), cardiac enzymes, CBC, electrolytes, Flu: negative EKG, radiologic studies, plain films. Data interpreted: Pulse oximetry: on 6L(s) per nasal canula, is 97 %. Interpretation: acceptable. Counseling: I had a detailed discussion with the patient and/or guardian regarding: the historical points, exam findings, and any diagnostic results supporting the discharge/admit diagnosis, the presence of at least one elevated blood pressure reading (>120/80) during this emergency department visit, lab results, radiology results, the need for further work-up and treatment in the hospital. 21:08 Patient medically screened. 7 04/04 19:00 Order name: Basic Metabolic Panel; Complete Time: 20:37 iw 04/04 19:00 Order name: CBC with Diff; Complete Time: 21:01 iw 04/04 19:00 Order name: LFT's; Complete Time: 20:37 iw 04/04 19:00 Order name: Magnesium; Complete Time: 20:37 04/04 19:00 Order name: NT PRO-BNP; Complete Time: 20:37 04/04 19:00 Order name: PT-INR; Complete Time: 20:37 iw 04/04 19:00 Order name: Troponin (emerg Dept Use Only); Complete Time: 20:37 04/04 19:01 Order name: Blood Culture Adult (2) 04/04 19:13 Order name: Arterial Blood Gas; Complete Time: 19:55 [facility] 04/04 19:13 Order name: Lactate; Complete Time: 20:37 [facility] 04/04 19:14 Order name: COVID-19/FLU A+B/RSV (Document "Date of Onset" if Symptomatic); Complete [facility] Time: 21:01 04/04 20:16 Order name: Manual Differential; Complete Time: 21:01 EDMI 04/04 21:17 Order name: Basic Metabolic Panel EDMI 04/04 21:17 Order name: Basic Metabolic Panel EDMS 04/04 19:00 Order name: XRAY Chest (1 view); Complete Time: 20:37 04/04 19:00 Order name: EKG; Complete Time: 19:01 04/04 21:17 Order name: Heart Healthy EDMS 04/04 21:17 Order name: CBC with Automated Diff EDMS 04/04 21:17 Order name: CBC with Automated Diff EDMS 04/04 21:17 Order name: NT PRO-BNP EDMS 04/04 21:17 Order name: NT PRO-BNP EDMS 04/04 21:17 Order name: Troponin I EDMS 04/04 21:18 Order name: Chest Single View EDMS 04/04 21:18 Order name: Chest Single View EDMS 04/05 00:03 Order name: Lactate Sepsis 2 HR Follow-up EDMS 04/05 00:55 Order name: Urine Dipstick-Ancillary EDMS 04/04 19:00 Order name: Cardiac monitoring; Complete Time: 19:07 iw 04/04 19:00 Order name: EKG - Nurse/Tech; Complete Time: 19:07 iw 04/04 19:00 Order name: IV Saline Lock; Complete Time: 19:50 iw 04/04 19:00 Order name: Labs collected and sent; Complete Time: 19:50 iw 04/04 19:00 Order name: O2 Per Protocol; Complete Time: 19: iw 04/04 19:00 Order name: O2 Sat Monitoring; Complete Time: 19: iw 04/04 19:15 Order name: Urine Dipstick-Ancillary (obtain specimen) [facility] Administered Medications: 19:27 Drug: Albuterol - atroVENT (ipratropium) (3:1) (2.5 mg - 0.5 mg) 3 ml Route: Nebulizer; tw5 19:50 Follow up: Response: No adverse reaction tw5 19:37 Drug: SOLU-Medrol (methylPrednisoLONE) 125 mg Route: IVP; Site: left antecubital; tw5 19:50 Follow up: Response: No adverse reaction tw5 21:07 Drug: Lasix (furosemide) 20 mg Route: IVP; Site: left antecubital; tw5 22:11 Follow up: Response: No adverse reaction tw5 21:22 Drug: LevaQUIN (levofloxacin) 500 mg Volume: 100 ml; Route: IVPB; Infused Over: 60 tw5 mins; Site: left antecubital; 22:11 Follow up: Response: No adverse reaction; IV Status: Completed infusion tw5 Disposition Summary: 04/04/21 21:08 Hospitalization Ordered Hospitalization Status: Inpatient Admission [facility] Provider: Александр Maciel Location: Telemetry/MedSurg (Inpatient) [facility] Condition: Stable [facility] Problem: an acute exacerbation [facility] Symptoms: have improved [facility] Bed/Room Type: Standard [facility] Room Assignment: 407(04/05/21 00:35) bb Diagnosis - COPD/ Chronic obstructive pulmonary disease with (acute) exacerbation [facility] - Pneumonia, unspecified organism [facility] - Acute pulmonary edema [facility] Forms: - Medication Reconciliation Form [facility] - SBAR form [facility] Signatures: Dispatcher [employer] Rona Redd RN RN bb Williams, Irene, RN RN iw Holmes, Maurice, MD MD [facility] Sujatha Bunn RN RN ld1 Bonnie Patel tw5 Corrections: (The following items were deleted from the chart) 04/05 00:35 04/04 21:08 [facility]
[2021-04-04] MEDS ORDERED: ACETAMINOPHEN 325 MG TABLET PO PRN (21:13)
[2021-04-04] MEDS ORDERED: ONDANSETRON 4 MG/2 ML VIAL IV PRN (21:13)
[2021-04-04] MEDS ORDERED: MORPHINE 2 MG/ML SYR IV PRN (21:13)
[2021-04-04] MEDS ORDERED: ALBUTEROL 2.5 MG/3 ML NEB SOL NEB PRN (21:13)
[2021-04-04] MEDS ORDERED: IPRATROPIUM BROM 0.5MG/2.5ML NEB PRN (21:13)
[2021-04-04] MEDS ORDERED: Levofloxacin500mg IV 500 MG/100 ML BAG IV ONE (21:18)
[2021-04-04] MEDS: Levofloxacin500mg IV 500 MG/100 ML BAG IV SCH (22:00)
[2021-04-05 00:55] LABS: Urine Blood Negative (Negative); Urine Glucose Negative (Negative); Urine Protein Negative (Negative); Urine Specific Gravity 1.015 (1.005-1.030)
[2021-04-05] MEDS ORDERED: METHYLPREDNISOLONE 40 MG INJ IV SCH (01:00)
[2021-04-05 04:06] LABS: Absolute Lymphocytes (CBC) 0.2 K/uL (0.7-4.9); Basophils % 0.3 % (0-1.3); Hematocrit 39.5 % (39.6-49.0); Lymphocytes % 4.8 % (15.3-44.8); MPV 8.4 fL (7.6-11.3); RBC Red Blood Cell Count 4.52 M/uL (4.33-5.43)
[2021-04-05 04:19] LABS: Potassium 4.4 mmol/L (3.5-5.1)
[2021-04-05] MEDS ORDERED: D50W 25 GM/50 ML SYRINGE IV PRN (07:15)
[2021-04-05] MEDS ORDERED: GLUCAGON 1 MG/VIAL IM PRN (07:15)
[2021-04-05] MEDS: INSULIN -REGULAR HUMAN 50 UNIT/0.5 ML ML SQ SCH ×4 (07:30→20:11)
--- NOTE | 2021-04-05 07:53 | RAD REPORT ---
EXAM DESCRIPTION: Perry Single View04/05/2021 7:14 am CLINICAL HISTORY: Chest pain COMPARISON: April 04, 2021 FINDINGS: No significant change the bilateral pulmonary opacities. The heart remains enlarged. Posts urgical changes involve the chest IMPRESSION: No significant change in the bilateral pulmonary opacities likely represent a combinati on of pulmonary edema or pneumonia superimposed over pulmonary fibrosis. COPD
[2021-04-05] MEDS: BUDESONIDE 0.5 MG/2 ML NEB NEB SCH ×2 (08:24→20:05)
[2021-04-05] MEDS: IPRATROPIUM BROM 0.5MG/2.5ML NEB SCH ×4 (08:24→20:05)
[2021-04-05] MEDS: ALBUTEROL 2.5 MG/3 ML NEB SOL NEB SCH ×4 (08:24→20:05)
[2021-04-05] MEDS: FUROSEMIDE 20 MG/ 2ML VIAL IV SCH ×2 (08:45→17:28)
[2021-04-05] MEDS: ENOXAPARIN 40 MG/0.4 ML SQ SCH (08:46)
[2021-04-05] MEDS: ASPIRIN EC 81 MG TAB PO SCH (08:53)
--- NOTE | 2021-04-05 12:04 | EKG ---
Test Date: 2021-04-04 Test Time: 19:02:12 [employer] Software Development Engineer: M[employer] MEASUREMENT RESULTS: Intervals: Rate: 118 W[place]: 164 QRSD: 72 QT: 324 QTc: 454 [place]: P: 50 W[place]: 164 QRS: 41 T: 44 INTERPRETIVE STATEMENTS: Sinus tachycardia with fusion complexes Possible Left atrial enlargement Septal infarct, age undetermined Abnormal ECG Compared to ECG 06/12/2020 15:07:21 Fusion complex(es) now present Myocardial infarct finding now present Ventricular premature complex(es) no longer present Electronically Signed On 04-05-21 12:02:47 KEY PUNCH OPERATOR by Lyle Gunderson
[2021-04-05] MEDS: METHYLPREDNISOLONE 40 MG INJ IV SCH ×3 (12:23→23:41)
--- NOTE | 2021-04-05 12:49 | ECHO ---
HEIGHT: 5 ft 6 in WEIGHT: 146 lb 0 oz DATE OF STUDY: 04/05/[address]: Jamir Maciel MD 2-DIMENSIONAL: YES M.MODE: YES DOPPLER: YES COLOR FLOW: YES TDS: PORTABLE: DEFINITY: BUBBLE STUDY: DIAGNOSIS: CONGESTIVE HEART FAILURE CARDIAC HISTORY: CATHERIZATION: SURGERY: PROSTHETIC VALVE: PACEMAKER: MEASUREMENTS (cm) DIASTOLIC (NORMALS) SYSTOLIC (NORMALS) IVSd 1.1 (0.6-1.2) LA Diam (1.9-4.0) LVEF 50% LVIDd 4.6 (3.5-5.7) LVIDs 3.4 (2.0-3.5) %FS 26% LVPWd 1.1 (0.6-1.2) Ao Diam 3.3 (2.0-3.7) 2 DIMENSIONAL ASSESSMENT: RIGHT ATRIUM: NORMAL LEFT ATRIUM: NORMAL RIGHT VENTRICLE: NORMAL LEFT VENTRICLE: NORMAL TRICUSPID VALVE: NORMAL MITRAL VALVE: MITRAL ANNULAR CALCIFICATION PULMONIC VALVE: NORMAL AORTIC VALVE: NORMAL PERICARDIAL EFFUSION: NONE AORTIC ROOT: NORMAL LEFT VENTRICULAR WALL MOTION: NORMAL DOPPLER/COLOR FLOW: NORMAL COMMENTS: MITRAL ANNULAR CALCIFICATION. NORMAL LEFT VENTRICULAR SIZE AND FUNCTION. NO WALL MOTION ABNORMALITY. NO EFFUSION. TECHNOLOGIST: MARYLOU PALOMINO
--- NOTE | 2021-04-05 19:56 | HP ---
Date of Admission: 04/05/2021 Chief Complaint: Shortness of breath. History Of Present Illness: A 75-year-old male patient with severe COPD who is oxygen and steroid dependent, sees a electrical test technician in [place], Dr. Lopez. The patient says that for last 3 to 4 days, he noticed that his shortness of breath has been getting worse and his oxygen saturation has been getting worse also. With any activity, his oxygen saturation has been dropping down in the range of 80s and at rest his oxygen saturation was more than 90%, but in last 2 to 3 days at rest and with activity, his oxygen saturation has been dropping down, at rest his oxygen saturation, he was not able to keep it more than 80 to 85 range and with any activity, it would drop down into 70 to 80 range. Associated with this, he has been having some cough, chest congestion, coughing up some mucus and with all these symptoms, he came into emergency room. After he was evaluated, he was admitted to hospital. Allergies: TO PENICILLIN. Medications: Albuterol nebulizer treatment every 4 hours as needed, budesonide nebulizer treatment 2 times a day, Combivent inhaler as needed, aspirin 81 mg daily, atorvastatin 80 mg daily in evening time, clopidogrel 75 mg p.o. daily, azelastine nasal spray 1 spray each nostril 2 times a day, famotidine 20 mg p.o. daily, diltiazem 240 mg p.o. daily, levocetirizine 5 mg p.o. daily, metformin 500 mg 1 tablet 2 times a day, montelukast 10 mg p.o. daily, prednisone 10 mg p.o. daily, Januvia 100 mg p.o. daily, spironolactone 25 mg p.o. daily, Theophylline 200 mg p.o. daily. Review of Systems: Respiratory: As mentioned above. All other systems reviewed and negative. Past Medical History: Significant for diabetes mellitus, COPD, which is severe and is oxygen and steroid dependent, hypertension, hyperlipidemia, coronary artery disease, history of myocardial infarction, December 2018, benign prostatic hypertrophy. Past Surgical History: Coronary artery stent placement in December 2018, coronary artery bypass surgery in 2008. Family History: Father had diabetes, stroke. Mother, COPD, diabetes. Brother and sister with diabetes. Social History: Prior history of smoking, not at present time. Use of alcohol, negative. Immunization History: Patient had his first dose of COVID-19 vaccine on June 28, 2020. Second dose on July 26, 2020. Physical Examination: Vital Signs: Temperature 98.4, pulse 93, respiratory rate 18, blood pressure 103/69, oxygen saturation 94% on high-flow oxygen at 10 L/minute. Height 5 feet 6 inches, weight 146 pounds. General: Awake, alert, oriented, not in distress. HEENT: Head atraumatic, normocephalic. Conjunctivae nonerythematous. Sclerae white. Mouth, no thrush or edema noted. Ears/Nose, no mass, lesion, discharge noted. Neck: Supple. No JVD, lymph nodes, bruit, thyromegaly noted. Lungs: Bilateral good equal air entry. Clear to auscultation. No rhonchi. Presence of some rales noted in lower lung valladares. Not using any accessory muscles of respiration. Heart: Normal heart sounds, no murmur or gallop. Abdomen: Soft, bowel sounds normal. No guarding, rigidity, tenderness, mass, hepatosplenomegaly, distention, or bruit noted. Extremities: No leg edema. No calf tenderness. Skin: No rash, ulcer, cellulitis. Lymphatics: No lymph node enlargement in neck, supraclavicular, infraclavicular region. Neuro: No focal neurological deficit. Chest: Unremarkable. External Genitalia: Deferred. Rectal: Deferred. Laboratory Data: Yesterday white count 11.8, hemoglobin 14.4, platelets 278. Today, white count 4.6, hemoglobin 13.3, platelets 240. Blood gas; pH 7.37, pCO2 33.4, PO2 103, oxygen saturation 96% on 100% FiO2. Yesterday sodium 137, potassium 4.8, chloride 104, bicarb 22, BUN 23, creatinine 1.46, glucose 190. Liver function tests unremarkable. Lactic acid 3.2, proBNP 960. Second troponin level 0.16. This morning, sodium 137, potassium 4.4, chloride 102, bicarb 23, BUN 26, creatinine 1.12, glucose 198. ProBNP 2470. Urinalysis negative. Influenza A and influenza B, COVID-19 and RSV test negative. Chest x-ray shows bilateral lung opacities. Impression: 1. Acute exacerbation of chronic obstructive pulmonary disease. 2. Chronic respiratory failure with hypoxia, with acute exacerbation. 3. Pneumonia. 4. Type 2 diabetes mellitus. 5. Hypertension. 6. Coronary artery disease. 7. Hyperlipidemia. 8. Gastroesophageal reflux disease. 9. Benign prostatic hypertrophy. Plan: We will go ahead and admit the patient to hospital for further evaluation and management. The patient is appropriate for inpatient and is expected to spend 2 midnights in hospital. We will continue oxygen per order, IV antibiotic, Levaquin was started, which we will continue, IV steroid, Solu- Medrol 40 mg every 8 hours was started in the emergency room, I have increased dose to every 6 hours. We will continue his nebulizer treatment per order including albuterol, Atrovent and budesonide. Home medications will be continued per order. We will give DVT prophylaxis using Lovenox. Echo was ordered. Cardiology consultation was requested and I will see him tomorrow for followup. Details and plan of treatment discussed with patient. BEATRIZ/GALEN Voice ID: [id number]
[2021-04-05] MEDS: Levofloxacin500mg IV 500 MG/100 ML BAG IV SCH (22:27)
[2021-04-06] MEDS: ALBUTEROL 2.5 MG/3 ML NEB SOL NEB SCH ×7 (00:10→23:15)
[2021-04-06] MEDS: IPRATROPIUM BROM 0.5MG/2.5ML NEB SCH ×7 (00:10→23:15)
[2021-04-06] MEDS: METHYLPREDNISOLONE 40 MG INJ IV SCH ×4 (05:28→23:36)
[2021-04-06] MEDS: INSULIN -REGULAR HUMAN 50 UNIT/0.5 ML ML SQ SCH ×4 (08:51→20:22)
[2021-04-06] MEDS: DILTIAZEM HCL 120 MG SR CAP PO SCH (08:52)
[2021-04-06] MEDS: ENOXAPARIN 40 MG/0.4 ML SQ SCH (08:52)
[2021-04-06] MEDS: FAMOTIDINE 20 MG TAB PO SCH ×2 (08:53→20:22)
[2021-04-06] MEDS: ASPIRIN EC 81 MG TAB PO SCH (08:53)
[2021-04-06] MEDS: SPIRONOLACTONE 25 MG TABLET PO SCH (08:53)
[2021-04-06] MEDS: METFORMIN ER 500 MG TAB PO SCH ×2 (08:53→20:22)
[2021-04-06] MEDS: SITAGLIPTIN PHOS 100 MG TAB PO SCH (08:53)
[2021-04-06] MEDS: CLOPIDOGREL 75 MG TABLET PO SCH (08:53)
[2021-04-06] MEDS: CYANOCOBALAMIN 1,000 MCG TAB PO SCH (09:00)
[2021-04-06] MEDS: BUDESONIDE 0.5 MG/2 ML NEB NEB SCH ×2 (09:12→19:45)
[2021-04-06] MEDS: THEOPHYLLINE SR 100 MG TAB PO SCH ×2 (09:25→20:21)
[2021-04-06] MEDS: ATORVASTATIN 80 MG TAB PO SCH (20:22)
[2021-04-06] MEDS: Levofloxacin500mg IV 500 MG/100 ML BAG IV SCH (22:49)
[2021-04-07] MEDS: IPRATROPIUM BROM 0.5MG/2.5ML NEB SCH ×6 (03:10→23:45)
[2021-04-07] MEDS: ALBUTEROL 2.5 MG/3 ML NEB SOL NEB SCH ×6 (03:10→23:45)
[2021-04-07] MEDS: METHYLPREDNISOLONE 40 MG INJ IV SCH ×3 (05:19→18:07)
--- NOTE | 2021-04-07 07:26 | PN ---
Date of Progress Note: 04/06/2021 Subjective: The patient was seen this morning for followup. No new complaints or problems reported by him. Overall, he feels better. Continues to remain on high-flow nasal cannula oxygen. Objective: Vital Signs: Reviewed. HEENT: Examination unremarkable. Lungs: Clear to auscultation. No wheezing. No rales. Heart: Heart sounds normal. Abdomen: Soft. Bowel sounds normal. No guarding, rigidity, tenderness, distention. Extremities: No leg edema. Impression: 1.Acute exacerbation of chronic obstructive pulmonary disease. 2.Chronic respiratory failure with hypoxia, with acute exacerbation. 3.Coronary artery disease. 4.Hypertension. Plan: Echocardiogram shows normal ejection fraction. No evidence of any wall motion abnormality. We will discontinue his Lasix as there is no evidence of any congestive heart failure. Continue curr ent antibiotics, steroids, oxygen replacement, nebulizer treatment, DVT prophylaxis and we will consu lt Physical Therapy to help ambulate the patient. Possible discharge to go home in next 2-3 days. BEATRIZ/MODL Voice ID: [id number] Report ID: [id number]
[2021-04-07] MEDS: BUDESONIDE 0.5 MG/2 ML NEB NEB SCH ×2 (07:37→19:40)
[2021-04-07] MEDS: THEOPHYLLINE SR 100 MG TAB PO SCH ×2 (08:30→22:35)
[2021-04-07] MEDS: ENOXAPARIN 40 MG/0.4 ML SQ SCH (08:31)
[2021-04-07] MEDS: METFORMIN ER 500 MG TAB PO SCH ×2 (08:31→21:35)
[2021-04-07] MEDS: FAMOTIDINE 20 MG TAB PO SCH ×2 (08:31→21:35)
[2021-04-07] MEDS: SPIRONOLACTONE 25 MG TABLET PO SCH (08:31)
[2021-04-07] MEDS: SITAGLIPTIN PHOS 100 MG TAB PO SCH (08:31)
[2021-04-07] MEDS: CYANOCOBALAMIN 1,000 MCG TAB PO SCH (08:32)
[2021-04-07] MEDS: CLOPIDOGREL 75 MG TABLET PO SCH (08:32)
[2021-04-07] MEDS: ASPIRIN EC 81 MG TAB PO SCH (08:32)
[2021-04-07] MEDS: DILTIAZEM HCL 120 MG SR CAP PO SCH (08:32)
[2021-04-07] MEDS: INSULIN -REGULAR HUMAN 50 UNIT/0.5 ML ML SQ SCH ×4 (08:33→21:35)
--- NOTE | 2021-04-07 12:25 | PN ---
Date of Progress Note: 04/07/2021 Subjective: The patient was seen this morning for followup. No new complaints or problems reported by the patient, lying in bed, not in distress. Overall, feels a lot better, using less oxygen compar ed to before. Objective: Vital Signs: Reviewed. HEENT: Examination unremarkable. Lungs: Clear to auscultation. No wheezing. No rales, not using any accessory muscles of respiratio n at rest. Heart: Sounds normal. Abdomen: Soft. Bowel sounds normal. No guarding, tenderness or distention. Extremities: No leg edema. Impression: 1.Pneumonia. 2.Acute exacerbation of chronic obstructive pulmonary disease. 3.Chronic respiratory failure with hypoxia, with acute exacerbation. 4.Coronary artery disease. 5.Hypertension. 6.Hyperlipidemia. Plan: We will continue current oxygen, steroid, antibiotic nebulizer treatment. We will repeat ches t x-ray tomorrow. Respiratory therapist to continue to wean off oxygen until we are able to get him down to his baseline oxygen need, which is 2 to 3 L/minute nasal cannula. Hopefully, we might be abl e to discharge him to go home over this weekend depending on his condition. Details and plan of dash rileynt discussed with him. The patient also tells me that at home when he is sitting in his living ro om, his oxygen concentrator is in another room and oxygen tubing is almost 80 feet long and I have advised him to use shorter tube instead of long oxygen tube, which will allow him to get adequate jos unt of oxygen per order. BEATRIZ/MODL Voice ID: [id number] Report ID: [id number]
[2021-04-07] MEDS: ATORVASTATIN 80 MG TAB PO SCH (21:35)
[2021-04-07] MEDS: Levofloxacin500mg IV 500 MG/100 ML BAG IV SCH (22:36)
[2021-04-08] MEDS: METHYLPREDNISOLONE 40 MG INJ IV SCH ×2 (00:18→05:07)
[2021-04-08] MEDS: IPRATROPIUM BROM 0.5MG/2.5ML NEB SCH ×5 (03:35→19:25)
[2021-04-08] MEDS: ALBUTEROL 2.5 MG/3 ML NEB SOL NEB SCH ×5 (03:35→19:25)
[2021-04-08 06:03] VITALS: BMI 23.2
[2021-04-08] MEDS: BUDESONIDE 0.5 MG/2 ML NEB NEB SCH ×2 (08:06→19:25)
[2021-04-08] MEDS: ENOXAPARIN 40 MG/0.4 ML SQ SCH (09:12)
[2021-04-08] MEDS: SITAGLIPTIN PHOS 100 MG TAB PO SCH (09:12)
[2021-04-08] MEDS: ASPIRIN EC 81 MG TAB PO SCH (09:12)
[2021-04-08] MEDS: CYANOCOBALAMIN 1,000 MCG TAB PO SCH (09:12)
[2021-04-08] MEDS: DILTIAZEM HCL 120 MG SR CAP PO SCH (09:12)
[2021-04-08] MEDS: SPIRONOLACTONE 25 MG TABLET PO SCH (09:12)
[2021-04-08] MEDS: THEOPHYLLINE SR 100 MG TAB PO SCH ×2 (09:12→20:11)
[2021-04-08] MEDS: CLOPIDOGREL 75 MG TABLET PO SCH (09:12)
[2021-04-08] MEDS: FAMOTIDINE 20 MG TAB PO SCH ×2 (09:12→20:11)
[2021-04-08] MEDS: INSULIN -REGULAR HUMAN 50 UNIT/0.5 ML ML SQ SCH ×4 (09:13→21:17)
[2021-04-08] MEDS: METFORMIN ER 500 MG TAB PO SCH ×2 (09:13→20:11)
--- NOTE | 2021-04-08 12:35 | RAD REPORT ---
EXAM DESCRIPTION: RAD - Chest Pa And Lat (2 Views) - 04/08/2021 12:09 pm CLINICAL HISTORY: pneumonia COMPARISON: Chest Single View dated 04/05/2021; Chest Single View dated 04/04/2021; Chest Pa And Lat ( 2 Views) dated 10/14/2020; Chest Single View dated 06/12/2020 FINDINGS: Lines: None. Lungs: Emphysema. Improved aeration of the lungs bilaterally. There are multiple irregular pulmonary opacities which remain. Pleural: No significant pleural effusions or pneumothorax. Cardiac: Cardiomegaly. Sternotomy. Bones: No acute fractures. Other: IMPRESSION: Improved but not completely resolved bilateral irregular and poorly defined airspace opa cities presumably representing pneumonia.
--- NOTE | 2021-04-08 12:44 | PN ---
Date of Progress Note: 04/08/2021 Subjective: The patient was seen this morning for followup. He was lying in bed, not in any distres s, overall feels better. When I saw him this morning, he was on nasal cannula oxygen 6 L/minute as o f probably around 6 a.m. today. His cough is better. Overall breathing is better, not coughing up a ny mucus now. Objective: Vital Signs: Reviewed. HEENT: Unremarkable. Lungs: Clear to auscultation. Heart: Sounds normal. Abdomen: Soft. Bowel sounds normal. No guarding, rigidity, tenderness, distention. Extremities: No leg edema. Impression: 1.Pneumonia. 2.Acute exacerbation of chronic obstructive pulmonary disease. 3.Coronary artery disease. 4.Hypertension. Plan: We will go ahead and reduce dose of oxygen from 6 L/minute down to 5 L/minute, which actually did that while I was in the room with him as his oxygen saturation was 97% to 98%. After I had reduc ed the dose of oxygen to 5 L/minute, he continued to monitor his oxygen level and it was around 95% t o 97%. We will continue current antibiotics. Respiratory therapist to reduce the oxygen delivery to 4 L/minute and around 2 cm and around 6 p.m. reduce it to 3 L/minute provided oxygen saturation maria d ins 93% or higher. We will get a chest x-ray done today and depending on x-ray and the patient's ove rall condition, we will decide if we can possibly discharge him to go home tomorrow or not. Stop IV steroid and start him on prednisone 20 mg 2 times a day. Details and plan of treatment discussed with the patient. BEATRIZ/MODL Voice ID: [id number] Report ID: [id number]
--- NOTE | 2021-04-08 18:44 | CON ---
Date of Consultation: 04/05/2021 Reason For Consultation: Elevated troponin. History Of Present Illness: Mr. Reinoso is a very well-known patient to me and Dr. Maciel. He comes in with mostly shortness of breath, sounds more like COPD exacerbation and hypercapnia. He was found t o have a troponin of 0.16. His BNP was 2470. Glucose was 198. He never had any chest pain. Denied any nausea, vomiting, diaphoresis. Has had no PND, orthopnea, and has trace pedal edema. Denied an y palpitation or syncope. Denied any fever or chills. Has had has had a chronic dry coug h. Past Medical History: Includes COPD, coronary artery disease, diabetes, hypertension, gastroesophage al reflux disease. Allergies: PENICILLIN. Review of Systems: Negative. Social History: Negative. Family History: Negative. Medications: Include inhaler, aspirin, Lipitor, metformin, diltiazem, Pepcid, Plavix, Januvia, Aldac tone, and theophylline. Physical Examination: General: He was in moderate respiratory distress. Sinus rhythm, afebrile. HEENT: Negative. Neck: Supple with no bruit, lymphadenopathy, JVD, or thyromegaly. Chest: Revealed poor airway movement. Expiratory wheezes. No rales. Cardiac: Exam revealed a regular rhythm and rate with an S4 gallop. No murmurs or rubs. Abdomen: Benign. Extremities: No clubbing or cyanosis. He had trace edema. Diagnostic Data: As stated above. Chest x-ray is negative. EKG is unremarkable. Impression And Plan: 1.Elevated troponin and BNP secondary to demand ischemia. 2.Diabetes, poorly controlled. 3.Chronic obstructive pulmonary disease exacerbation, acute on chronic. 4.Dyslipidemia, on Lipitor. 5.Hypertension, on diltiazem. 6.Gastroesophageal reflux disease, on Pepcid. I will continue his present regimen. Continue his pulmonary therapy. Obtain a 2D echocardiogram. I will continue to follow him. NATALY/GALEN Voice ID: [id number] Report ID: [id number]
[2021-04-08] MEDS ORDERED: BUDESONIDE 0.5 MG/2 ML NEB ONE (19:21)
[2021-04-08] MEDS: ATORVASTATIN 80 MG TAB PO SCH (20:11)
[2021-04-08] MEDS: predniSONE 20 MG TAB PO SCH (20:11)
[2021-04-08] MEDS: Levofloxacin500mg IV 500 MG/100 ML BAG IV SCH (21:17)
[2021-04-09] MEDS: ALBUTEROL 2.5 MG/3 ML NEB SOL NEB SCH ×3 (00:05→08:01)
[2021-04-09] MEDS: IPRATROPIUM BROM 0.5MG/2.5ML NEB SCH ×3 (00:05→08:01)
[2021-04-09 05:05] VITALS: TEMP 97.8
[2021-04-09] MEDS: BUDESONIDE 0.5 MG/2 ML NEB NEB SCH (08:01)
[2021-04-09] MEDS: INSULIN -REGULAR HUMAN 50 UNIT/0.5 ML ML SQ SCH (08:19)
[2021-04-09 08:48] VITALS: O2SAT 98
[2021-04-09] MEDS: FAMOTIDINE 20 MG TAB PO SCH (09:16)
[2021-04-09] MEDS: THEOPHYLLINE SR 100 MG TAB PO SCH (09:16)
[2021-04-09] MEDS: METFORMIN ER 500 MG TAB PO SCH (09:17)
[2021-04-09] MEDS: DILTIAZEM HCL 120 MG SR CAP PO SCH (09:17)
[2021-04-09] MEDS: SITAGLIPTIN PHOS 100 MG TAB PO SCH (09:17)
[2021-04-09] MEDS: ASPIRIN EC 81 MG TAB PO SCH (09:18)
[2021-04-09] MEDS: CLOPIDOGREL 75 MG TABLET PO SCH (09:18)
[2021-04-09] MEDS: SPIRONOLACTONE 25 MG TABLET PO SCH (09:18)
[2021-04-09] MEDS: CYANOCOBALAMIN 1,000 MCG TAB PO SCH (09:18)
[2021-04-09] MEDS: ENOXAPARIN 40 MG/0.4 ML SQ SCH (09:19)
[2021-04-09] MEDS: predniSONE 20 MG TAB PO SCH (09:19)
[2021-04-09 10:17] VITALS: BP 121/69
--- NOTE | 2021-04-09 11:54 | DS ---
Date of Discharge: 04/09/2021 Disposition: Discharged to go home. Physical Examination: HEENT: Unremarkable. Lungs: Clear to auscultation. No wheezing. No rales. Not in any respiratory distress. Heart: Sounds normal. Abdomen: Soft. Bowel sounds normal. No guarding, rigidity, tenderness, or distention. Extremities: No leg edema. Discharge Medications And Instructions: Continue all prior home medication except following changes: 1. Levaquin 500 mg daily for 1 week. 2. Prednisone 10 mg. The patient to take 2 tablets by mouth 2 times a day for 4 days, then 3 tablets daily for 4 days, then 2 tablets daily for 4 days, then 1 tablet daily to continue, take it with food. Follow up at my office on which is 04/13/2021 at 10 a.m. Laboratory Data: Labs done during this hospitalization. Upon admission; white count 11.8, hemoglobin 13.4, platelets 278, and day after admission, white count 4.6, hemoglobin 13.3. Arterial blood gas upon admission; pH 7.37, pCO2 33.4, pO2 103, saturation 96% on 100% FiO2. Upon admission; sodium 137, potassium 4.8, chloride 104, bicarb 22, BUN 23, creatinine 1.46, glucose 190. Lactic acid 3.2. Liver function tests unremarkable. Troponin 0.02 on the first set, second set 0.16. ProBNP 960. Day after admission sodium 137, potassium 4.4, chloride 102, bicarb 23, BUN 26, creatinine 1.12. Hospital Course: A 75-year-old male patient admitted to the hospital with complaints of shortness of breath. Please see dictated H and P for more information. After the patient was evaluated in ER, he was admitted to the hospital and he was treated for acute exacerbation of COPD and pneumonia. The patient was given oxygen and IV antibiotics. He did require high-flow oxygen at some point, and as his condition improved, we were able to reduce his oxygen, and yesterday morning when I saw he was on 5-6 L/minute nasal cannula oxygen and we were able to reduce it down to 3 L nasal cannula oxygen as of yesterday evening and he has remained stable on that throughout the night. This morning when I saw him, his oxygen saturation was between 92% to 94% during the entire time while I was in the room with him talking to him at that time. The patient says that he is concerned about his oxygen saturation dropping with any activity including walking from room to room and I have advised him that at home he should use his oxygen at 3 L/minute nasal cannula using shorter oxygen tubing instead of a long oxygen tubing and with activity he should increase the oxygen from 3-4 L/minute nasal cannula. At rest, he should leave it at 3 L/minute. He also informed me that while taking shower if he can temporarily increase oxygen to 5 L/minute or not and I told him that it is okay to do so, but at the same time, he takes shower in standing position and I did inform him that it would help improve his oxygenation and reduce the workload if he sits down to take shower instead of standing up. 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 Lopez started him on budesonide nebulizer treatment. His maintenance dose of prednisone was down to [address] Lopez is going to try to wean off prednisone completely if possible and the patient will continue to follow up with him and he will see him in couple of weeks. I have given him a prescription for prednisone for 100 tablets tablet with 1 extra refill and also a prescription for Levaquin was given today. Overall, his condition has improved significantly and the patient is being discharged to go home in stable condition with above-mentioned medications and instructions. His echocardiogram done during this hospitalization showed normal ejection fraction of 50%, normal left ventricular wall motion. Final Diagnoses: 1. Acute exacerbation of chronic obstructive pulmonary disease. 2. Pneumonia. 3. Chronic respiratory failure with hypoxia, with acute exacerbation. 4. Type 2 diabetes mellitus, uncontrolled, due to steroid. 5. Hypertension. 6. Coronary artery disease. 7. Hyperlipidemia. 8. Gastroesophageal reflux disease. 9. Benign prostatic hypertrophy. BEATRIZ/MODL Voice ID: [id number] Report ID: [id number] CHELE
== END 2021-04-09 11:45 | disposition home or self-care (01) | DRG 190 ==
LOC: ER 18:40 → ERHOLD 21:40 → 4TH 04-05 00:41 → 2ND 04-07 16:47
PROVIDERS: ADMIT Internal Medicine; ATTEND Internal Medicine
DX: J44.0 Chronic obstructive pulmonary disease with (acute) lower respiratory infection (principal); J18.9 Pneumonia, unspecified organism; J96.21 Acute and chronic respiratory failure with hypoxia; I24.8 Other forms of acute ischemic heart disease; J44.1 Chronic obstructive pulmonary disease with (acute) exacerbation; I10 Essential (primary) hypertension; I25.10 Atherosclerotic heart disease of native coronary artery without angina pectoris; E78.5 Hyperlipidemia, unspecified; K21.9 Gastro-esophageal reflux disease without esophagitis; N40.0 Benign prostatic hyperplasia without lower urinary tract symptoms; E09.65 Drug or chemical induced diabetes mellitus with hyperglycemia; T38.0X5A Adverse effect of glucocorticoids and synthetic analogues, initial encounter; Y92.9 Unspecified place or not applicable; Z20.822 Contact with and (suspected) exposure to COVID-19; Z95.5 Presence of coronary angioplasty implant and graft; Z99.81 Dependence on supplemental oxygen; I25.2 Old myocardial infarction; Z88.0 Allergy status to penicillin
CPT/HCPCS: 0241U; 36415; 71045; 71046; 80048; 80076; 81003; 82805; 82947; 83605; 83735; 83880; 84484; 85025; 85610; 87040; 93005; 93306; 94002; 94003; 94640; 94760; 96365; 96375; 99285; J1650; J1940; J2920; J2930; J7512

== ENCOUNTER 2021-06-13 10:37 | Inpatient (IN) | payer OTHER, BC ==
--- OUTSIDE RECORDS SUMMARY | 2021-06-13 10:41 | XMS REPORT | Continuity of Care Document ---
:1945 Author Organization [facility] t Address [address] [place] [place] [address] Care Team Providers Name Role Phone Tavon Maciel Primary Care Physician Primo TERAN Attending Clinician Unavailable Therapist, Pulmonary Attending Clinician Unavailable Primo Teran MD Attending Clinician Doctor Unassigned, Name Attending Clinician Unavailable IAN KEYES Attending Clinician Unavailable IAN KEYES Admitting Clinician Unavailable Payers Payer Name Policy Type Policy Number Effective Date Expiration Date S ource MEDICARE PART A \T\ [id number] 2011 B 00:00:00 [employer] TRADITIONAL [id number] 2011 00:00:00 Problems Condition Condition Condition Status Onset Resolution Last Treating Co mments Source Name Details Category Date Date Treatment Clinician Date No known No known Disease Unive rs active active ity of problems problems [facility] Allergies, Adverse Reactions, Alerts Allergy Allergy Status Severity Reaction(s) Onset Inactive Treating Comm ents Source Name Type Date Date Clinician Penicill Propensi Active Unknown - Uni vers ins ty to See comments 16 ity of adverse 00:00: [place] reaction 00 Medical s Branch PENICILL Drug Active Unknown-Cmnt Un last INS Class 9-16 ity of 00:00: [place] 00 Medical Branch PENICILL Allergy Active 2018- [facility] Social History Social Habit Start Date Stop Date Quantity Comments Source History of tobacco Cigarette Smoker University of use [facility] Exposure to Not sure University of SARS-CoV-2 (event) [facility] History SDNE University [facility] f Alcohol Std Drinks [facility] History [facility] o f Alcohol Binge [facility] [place] [facility] al [place] Alcohol intake 2021-04-20 2021-04-20 Ex-drinker University 00:00:00 00:00:00 (finding) [facility] Alcohol Comment 2021-03-31 2021-03-31 6 pack/day; Universi ty of 00:00:00 00:00:00 stopped 26 yrs [facility] Tobacco use and 2021-01-12 2021-01-12 Never used Universit y of exposure 00:00:00 00:00:00 [facility] Cigarettes smoked 2021-01-12 2021-01-12 Univers ity of current (pack per 00:00:00 00:00:00 [facility] ) - Reported Branch Cigarette 2021-01-12 2021-01-12 University of pack-years 00:00:00 00:00:00 [facility] Sex Assigned At [birth year] Universit y of 00:00:00 00:00:00 [facility] Smoking Status Start Date Stop Date Source Unknown if ever smoked Universit y [facility] Former smoker 2021-01-12 00:00:00 2021-01-12 00:00:00 Universi ty of [facility] Medications Ordered Filled Start Stop Current Ordering Indication Dosage Frequency Signature Comments Components Source Medication Medication Date Date Medication? Clinician (SIG) Name Name predniSONE Yes 15mg Take 15 mg U nivers 10 mg 1-25 by mouth ity of tablet 13:11: daily. [place] 06 occasional Medical ly takes Branch 5mg at PM diltiazem 2020-04 Yes 240mg Take 240 Uni vers XR 240 mg 2-23 mg by ity of 24 hr 12:55: mouth 2 [place] capsule 56 (two) Medical times Branch daily. atorvastati 2020-04 Yes 80mg Take 80 mg Univers n 80 mg 2-23 by mouth ity of tablet 12:55: at [place] [address] bedtime. Medical Branch clopidogreL 2020-04 Yes 75mg Take 75 mg Univers 75 mg 2-23 by mouth ity of tablet 12:55: daily. [address] Branch nitroglycer 2020-[address] 0[address]4 U nivers in 0.4 mg 2-23 mg under ity of sublingual 12:55: the tongue [place] tablet 56 every 5 Medical (five) Branch minutes as needed for Chest pain. aspirin 81 2020-04 Yes 81mg Take 81 mg U nivers mg chewable 2-23 by mouth ity of tablet 12:55: daily. [address] metFORMIN 2020-04 Yes 500mg Take 500 Uni vers 500 mg 2-23 mg by ity of tablet 12:55: mouth 2 [place] 56 (two) [facility] times [place] daily with meals. spironolact 2020-04 Yes 25mg Take 25 mg Univers one 25 mg 2-23 by mouth ity of tablet 12:55: daily. [address] SITagliptin 2020-04 Yes 100mg Take 100 U nivers 100 mg 2-23 mg by ity of tablet 12:55: mouth [place] 56 daily. [facility] Branch revefenacin 2020-04 Yes Inhale Univ ers (YUPELRI) 2-23 daily. ity of 175 mcg/3 12:55: [place] [address] Branch Formoterol 2020-04 Yes Inhale 2 Uni vers Fumarate 2-23 (two) ity of (PERFOROMIS 12:55: times [place] T) 20 mcg/2 56 daily. Medica l [facility] famotidine 2020-04 Yes 20mg Take 20 mg U nivers (PEPCID) 20 2-23 by mouth 2 it y of mg tablet 12:55: (two) [place] 56 times Medical daily. Branch Indication s: stopped Famotidine theophyllin 2020-04 Yes 200mg Take 1 Uni vers e 200 mg 24 2-15 capsule by it y of hr capsule 00:00: mouth [place] 00 daily. Medical Branch albuterol 2020-04 Yes 2{puff} Inhale 2 U nivers (VENTOLIN 2-03 Puffs 4 ity of HFA) 90 10:12: (four) [place] mcg/actuati 08 times Medical on inhaler daily. Branch famotidine 2020-04 Yes 20mg Take 20 mg U nivers 20 mg 2-03 by mouth ity of tablet 10:12: daily. [place] [facility] montelukast 2020-04 Yes 10mg Take 10 mg Univers 10 mg 2-03 by mouth ity of tablet 10:12: daily. [place] [facility] Branch azithromyci 2020-04 Yes 250mg Take 1 Uni vers n 250 mg 0-01 tablet by ity of tablet 00:00: mouth [place] 00 every Medical Saturday, Branch Saturday and Saturday. budesonide Yes [id number] .25mg Inhale 1 Univers 0.5 mg/2 mL 9-16 mL 2 (two) it y of nebulizer 00:00: times [place] solution 00 daily. [facility] Vital Signs Vital Name Observation Time Observation Value Comments Source Systolic blood 2021-06-08 118 mm[Hg] manual University of pressure 17:00:00 [facility] Diastolic blood 2021-06-08 64 mm[Hg] manual University o f pressure 17:00:00 [facility] Heart rate 2021-06-08 91 /min [facility] 17:00:00 [facility] Respiratory rate 2021-06-08 24 /min [facility] 17:00:00 [facility] Body weight 2021-06-08 65.318 kg [facility] 17:00:00 [facility] BMI 2021-06-08 23.96 kg/m2 [facility] 17:00:00 [facility] Oxygen saturation 2021-06-08 71 /min arrival [place], [facility] in Arterial blood 17:00:00 4l/m pulsed [facility] rich by Pulse oximetry [employer]; [address] [place] [address] l/mVM >90%3-4 mins Procedures Procedure Date / Time Performed Performing Clinician [facility] e ASSIGNMENT OF BENEFITS 2021-01-12 18:35:50 Doctor Unassigned, No University [facility] Name [facility] Encounters Start End Encounter Admission Attending Care Care Encounter Source Date/Time Date/Time Type Type Clinicians Facility Department ID 2021-06-15 2021-06-15 Outpatient R [facility] [id number] Univers 11:00:00 11:00:00 [id number] ity [facility] 2021-06-15 2021-06-15 Outpatient R PARUL [facility] [id number] Univers 11:00:00 11:00:00 STEVAN ity [facility] 2021-06-13 2021-06-13 Outpatient R [facility] [id number] Univers 11:00:00 11:00:00 [id number] ity [facility] 2021-06-08 2021-06-08 Ancillary Therapist, Adc Pulmonary [facility] [id number] Univers 11:00:00 13:38:40 Visit Stevan Teran 350.1.13. 10 ity of [place]2.[place] PROFESS[place] [phone] Wa dical NAL 296 [facility] 2021-01-12 2021-01-12 Orders Doctor JANAE [id number] Univers 00:00:00 00:00:00 Only Unassigned, ANDRA [id number] ity of [place] [facility] 4.2.7.2.686 Raman as [phone] [address] Results Test Description Test Time Test Comments [...] NOT 1092) ACCURATE CRE ATININE CLEARANCE IN [place] EDICTING GLOMERULAR FILT RATION RATE. ESTIMATED GFR IS NOT APPLICABLE FOR DIALYSIS PATIENTS. CBC W/PLT COUNT & AUTO [id number] 05:12:00 Test Item Value Reference Range Interpretation [...] 0-1 PERCENT (BEAKER) (test code = 2801) [id number] 10:40:00 Test Item Value Reference Range Interpretation Comments MAGNESIUM (BEAKER) (test code = 1.9 mg/dL 1.6-2.6 627) BASIC METABOLIC [id number] 06:22:00 Test Item Value Reference Range Interpretation [...] NOT APPLICABLE FOR DIALYSIS PATIEN TS. TROPONIN [id number] 06:07:00 Test Item Value Reference Range Interpretation [...] (BEAKER) (test code = 2801) VANCOMYCIN LEVEL, [id number] 15:51:00 Test Item Value Reference Range Interpretation Comments VANCOMYCIN TROUGH (BEAKER) (test 7.0 ug/mL 10.0-20.0 L code = 522) [id number] 11:25:00 Test Item Value Reference Range Interpretation Comments PARTIAL THROMBOPLASTIN TIME 77.4 seconds 22.5-36.0 H (BEAKER) (test code = 760) RAD, CHEST, 1 VIEW, NON [id number] 09:31:00Reason for exam:->Balloon Pump Positioning; perform at [...] MDReport Verified Date/Time: 12/30/2018 09:31:26 Reading Location: [facility] Radiology Reading Room [id number] 03:22:00 Test Item Value Reference Range Interpretation Comments MAGNESIUM (BEAKER) (test code = 2.0 mg/dL 1.6-2.6 627) BASIC METABOLIC [id number] 03:22:00 Test Item Value Reference Range Interpretation [...] S NOT APPLICABLE FOR DIALYSIS PATIEN TS. [id number] 03:18:00 Test Item Value Reference Range Interpretation Comments PARTIAL THROMBOPLASTIN TIME 81.6 seconds 22.5-36.0 H (BEAKER) (test code = 760) CBC W/PLT COUNT & AUTO [id number] 03:08:00 Test Item Value Reference Range Interpretation [...] 0-1 PERCENT (BEAKER) (test code = 2801) [id number] 19:07:00 Test Item Value Reference Range Interpretation Comments PARTIAL THROMBOPLASTIN TIME 55.9 seconds 22.5-36.0 H (BEAKER) (test code = 760) TROPONIN [id number] 17:30:00 Test Item Value Reference Range Interpretation Comments TROPONIN I (BEAKER) (test code = 21.60 ng/mL 0.00-0.03 HH 397) Troponin I (TnI) [...] failure, acidosis, acute neurological disease, and persistent tachyarrhythmia.[id number] 17:17:00 Test Item Value Reference Range Interpretation Comments POTASSIUM (BEAKER) (test code = 4.2 meq/L 3.5-5.1 379) [id number] 17:17:00 Test Item Value Reference Range Interpretation Comments MAGNESIUM (BEAKER) (test code = 2.2 mg/dL 1.6-2.6 627) HEMOGLOBIN [id number] 08:08:00 Test Item Value Reference Range Interpretation Comments HEMOGLOBIN A1C (BEAKER) (test code = 6.1 % 4.3-6.1 368) [id number] 04:35:00 Test Item Value Reference Range Interpretation Comments ACTIVATED CLOTTING TIME 180 sec TEST ED AT [facility] ([facility]) (test code = [place] [address]) [id number] TSH/FREE T4 IF [id number] 04:24:00 Test Item Value Reference Range Interpretation Comments THYROID STIMULATING HORMONE 1.52 uIU/mL 0.35-4.94 (BEAKER) (test code = 772) TROPONIN [id number] 04:19:00 Test Item Value Reference Range Interpretation Comments TROPONIN I (BEAKER) (test code = 46.32 ng/mL 0.00-0.03 HH 397) Troponin I (TnI) [...] failure, acidosis, acute neurological disease, and persistent tachyarrhythmia.[id number] 04:17:00 Test Item Value Reference Range Interpretation Comments PARTIAL THROMBOPLASTIN TIME > seconds 22.5-36.0 HH (BEAKER) (test code = 760) [id number] 04:11:00 Test Item Value Reference Range Interpretation Comments MAGNESIUM (BEAKER) (test code = 1.8 mg/dL 1.6-2.6 627) BASIC METABOLIC [id number] 04:11:00 Test Item Value Reference Range Interpretation [...] NOT APPLICABLE FOR DIALYSIS PATIEN TS. LIPID [id number] 04:11:00 Test Item Value Reference Range Interpretation [...] Very High >=190CBC W/PLT COUNT & AUTO [id number] 03:39:00 Test Item Value Reference Range Interpretation [...] ABSOLUTE COUNT 1.01 K/ L 1.32-3.57 L (BEAKER) (test code = 414) MONOCYTES ABSOLUTE COUNT (BEAKER) 0.87 K/ L 0.30-0.82 H (test code = 415) EOSINOPHILS ABSOLUTE COUNT 0.03 K/ L 0.04-0.54 L (BEAKER) (test code = 416) BASOPHILS ABSOLUTE COUNT (BEAKER) 0.02 K/ L 0.01-0.08 (test code = 417) IMMATURE GRANULOCYTES-RELATIVE 1 % 0-1 PERCENT (BEAKER) (test code = 2801) [id number] 02:12:00 Test Item Value Reference Range Interpretation Comments ACTIVATED CLOTTING TIME 241 sec TEST ED AT [place] [address] ([facility]) (test code = SUZY [place] [address]) [id number] 00:38:00 Test Item Value Reference Range Interpretation Comments ACTIVATED CLOTTING TIME 257 sec TEST ED AT [place] [address] ([facility]) (test code = [place]Y [place] [address]) [id number] 00:38:00 Test Item Value Reference Range Interpretation Comments ACTIVATED CLOTTING TIME 202 sec TEST ED AT [place] [address] ([facility]) (test code = SUZY [place] [address]) [id number]
[2021-06-13] MEDS ORDERED: METHYLPREDNISOLONE 125 MG INJ ONE (11:20)
[2021-06-13] MEDS ORDERED: ALBUTEROL 2.5 MG/3 ML NEB SOL ONE (11:20)
[2021-06-13] MEDS ORDERED: IPRATROPIUM BROM 0.5MG/2.5ML ONE (11:20)
[2021-06-13 11:27] LABS: Absolute Lymphocytes (CBC) 0.8 K/uL (0.7-4.9); Hematocrit 41.8 % (39.6-49.0); Lymphocytes % 5.1 % (15.3-44.8); MPV 8.1 fL (7.6-11.3); RBC Red Blood Cell Count 4.63 M/uL (4.33-5.43)
[2021-06-13 11:31] LABS: Protime INR 0.94
[2021-06-13 11:53] LABS: Albumin 3.3 g/dL (3.4-5.0); Bilirubin Direct 0.2 mg/dL (0-0.2); Bilirubin Total 0.6 mg/dL (0.2-1.0); Magnesium 1.6 mg/dL (1.8-2.4); Potassium 4.4 mmol/L (3.5-5.1); Protein, Total 6.8 g/dL (6.4-8.2); Troponin High Sensitivity 20.9 pg/mL (<58.9)
--- NOTE | 2021-06-13 12:00 | RAD REPORT ---
EXAM DESCRIPTION: RAD - Chest Single View - 06/13/2021 11:48 am CLINICAL HISTORY: SOB COMPARISON: Two view chest 04/08/2021 TECHNIQUE: AP portable chest image was obtained 06/13/2021 11:48 am . FINDINGS: Patient has very extensive fibrotic lung change as a baseline. Adjusting for film 1 respir atory technique differences, chest findings are not substantially different. The pronounced severity of the lung base fibrotic pattern could easily mask superimposed interstitial edema or infiltrate. Heart and vasculature are normal. No measurable pleural effusion and no pneumothorax. No acute bony abnormality seen. No acute aortic findings suspected. IMPRESSION: Patient has very pronounced fibrotic lung change worse in each lung base. Severity of disease could easily mask an acute interstitial infiltrate or edema.
[2021-06-13] MEDS ORDERED: NA CHLORIDE 0.9% 2,000 ML ONE (12:17)
[2021-06-13] MEDS ORDERED: MAGNESIUM SULFATE 1 gm IVPB 1 GM/100 ML BAG IV ONE (12:18)
[2021-06-13] MEDS ORDERED: Levofloxacin 750mg IV 750 MG/150 ML BAG IV ONE (12:18)
[2021-06-13 12:32] LABS: SARS-COV-2 RT PCR NEGATIVE (NEGATIVE)
--- NOTE | 2021-06-13 13:08 | EDPHYS ---
Physician Documentation [facility] Name: Alexandro Reinoso Age: 75 yrs Sex: Male : 1945 Arrival Date: 06/13/2021 Time: 10:38 Bed 14 Private MD: Александр Maciel C ED Physician George Valdes HPI: 06/13 10:55 This 75 yrs old Male presents to ER via Wheelchair with complaints of COPD Exacerbation.cp 10:55 The patient has shortness of breath at rest. cp 10:55 Onset: The symptoms/episode began/occurred yesterday, and became worse today. Duration: cp The symptoms are continuous, and are steadily getting worse. Associated signs and symptoms: Pertinent positives: non-productive cough, Pertinent negatives: chest pain, diaphoresis, fever. Severity of symptoms: in the emergency department the symptoms are unchanged despite home interventions. Historical: - Allergies: 10:47 PENICILLINS; ll1 - Home Meds: 10:54 diltiazem HCl 240 mg Oral CDER 1 cap 2X day [Active]; atorvastatin 80 mg oral tab 1 tab ap3 once daily [Active]; clopidogrel 75 mg oral tab [Active]; nitroglycerin 0.4 mg SL subl 1 tab as needed [Active]; aspirin 81 mg Oral TbEC 1 tab once daily [Active]; Shorty-Dur 200 mg Oral Tb12 1 tab twice a day [Active]; prednisone 10 mg Oral tab 1 tab once daily [Active]; prednisone 5 mg Oral tab 1 tab once daily [Active]; Ventolin HFA 90 mcg/actuation Nebulizer HFAA 2 puffs every 4-6 hours [Active]; Albuterol Nebulizer as needed [Active]; famotidine 20 mg Oral tab 1 tab once daily [Active]; metformin 500 mg Oral tab 1 tab 2 times per day [Active]; spironolactone 25 mg Oral tab 1 tab once daily [Active]; Januvia 100 mg oral tab 1 tab once daily [Active]; montelukast 10 mg oral tab 1 tab once daily [Active]; - PMHx: 10:47 CAD; COPD; High Cholesterol; Hypertension; Myocardial infarction; ll1 - PSHx: 10:47 heart surgery; ll1 - Immunization history:: Client reports receiving the 2nd dose of the Covid vaccine, and booster Pneumococcal vaccine is up to date, Flu vaccine is up to date. - Social history:: Smoking status: Patient/guardian denies using tobacco, the patient reports quitting approximately 25 years ago. ROS: 11:00 Constitutional: Negative for body aches, chills, fever, poor PO intake. cp 11:00 Eyes: Negative for injury, pain, redness, and discharge. cp 11:00 ENT: Negative for drainage from ear(s), ear pain, sore throat, difficulty swallowing, difficulty handling secretions. 11:00 Cardiovascular: Negative for chest pain, edema, palpitations. 11:00 Respiratory: Positive for cough, shortness of breath, at rest. 11:00 Abdomen/GI: Negative for abdominal pain, nausea, vomiting, and diarrhea. 11:00 Neuro: Negative for altered mental status, dizziness, headache, syncope, weakness. 11:00 All other systems are negative. cp Exam: 11:00 ECG was reviewed by the Attending Physician. cp 11:05 Constitutional: The patient appears alert, awake, non-diaphoretic, non-toxic, well cp developed, well nourished, in obvious distress, mildly distressed. 11:05 Head/Face: Normocephalic, atraumatic. cp 11:05 Eyes: Periorbital structures: appear normal, Conjunctiva: normal, no exudate, no injection, Sclera: no appreciated abnormality, Lids and lashes: appear normal, bilaterally. 11:05 ENT: External ear(s): are unremarkable, Nose: is normal, Mouth: Lips: moist, Oral mucosa: moist, Posterior pharynx: Airway: no evidence of obstruction, patent. 11:05 Neck: ROM/movement: is normal, is supple, without pain, no range of motions limitations. 11:05 Chest/axilla: Inspection: normal. 11:05 Cardiovascular: Rate: normal, Rhythm: regular, Edema: is not appreciated, JVD: is not appreciated. 11:05 Respiratory: mild respiratory distress is noted, Respirations: shallow respirations, that is mild, Breath sounds: decreased breath sounds, that are moderate, diffuse, stridor, is not appreciated, wheezing: that is mild, is heard diffusely. 11:05 Abdomen/GI: Inspection: distension, that is mild, Bowel sounds: active, all quadrants, Palpation: abdomen is soft and non-tender, in all quadrants. 11:05 Back: pain, is absent, ROM is normal. 11:05 Skin: cellulitis, is not appreciated, no rash present. 11:05 Neuro: Orientation: to person, place \\T\\ time. Mentation: is normal, Motor: moves all fours, strength is normal, Sensation: is normal. Vital Signs: 10:46 BP 136 / 78; Pulse 94; Resp 22; Temp 98.0; Pulse Ox 80% on 4 lpm NC; Weight 65.77 kg; ap3 Height 5 ft. 6 in. (167.64 cm); 10:49 Pulse Ox 94% on Non-rebreather mask; ap3 11:15 Pulse Ox 98% on 4 lpm NC; ap3 11:47 BP 127 / 77; Pulse 94; Resp 14; Pulse Ox 93% on 4 lpm NC; ww 12:22 BP 132 / 82; Pulse 97; Resp 16; Pulse Ox 95% on 5 lpm NC; ww 13:30 BP 133 / 72; Pulse 98; Resp 16; Pulse Ox 92% on 5 lpm NC; ww 15:26 BP 136 / 72; Pulse 90; Resp 15; Pulse Ox 95% on 5 lpm NC; ww 10:46 Body Mass Index 23.40 (65.77 kg, 167.64 cm) ap3 MDM: 10:51 Patient medically screened. 13:08 Physician consultation: A Janell LINDO was contacted at 13:00, regarding admission, to the telemetry unit. patient's condition, wants fluids discontinued, solu-medrol 60 mg q 8, neb treatments q 4, IV Levaquin. 13:10 Data reviewed: vital signs, nurses notes, lab test result(s), EKG, radiologic studies, plain films. 13:10 Data interpreted: site monitor: rate is 97 beats/min, rhythm is normal sinus rhythm, Pulse oximetry: on 5L(s) per nasal canula, is 95 %. Interpretation: acceptable. Test interpretation: by ED physician or midlevel provider: ECG, plain radiologic studies. Response to treatment: the patient's symptoms have mildly improved after treatment, and as a result, I will admit patient. 06/13 10:54 Order name: Basic Metabolic Panel 06/13 10:54 Order name: CBC with Diff 06/13 10:54 Order name: LFT's 06/13 10:54 Order name: Magnesium cp 06/13 10:54 Order name: NT PRO-BNP cp 06/13 10:54 Order name: PT-INR cp 06/13 10:54 Order name: Troponin HS; Complete Time: 12:10 cp 06/13 10:54 Order name: Blood Culture Adult (2) cp 06/13 10:54 Order name: Procalcitonin; Complete Time: 12:10 cp 06/13 10:54 Order name: Lactate; Complete Time: 12:10 cp 06/13 10:54 Order name: COVID-19/FLU A+B (Document "Date of Onset" if Symptomatic); Complete Time: cp 12:41 06/13 12:41 Interpretation: Reviewed. 06/13 10:54 Order name: Urine Microscopic Only cp 06/13 10:54 Order name: Basic Metabolic Panel; Complete Time: 12:10 EDMS 06/13 12:11 Interpretation: Normal except: NA 134; GLUC 193; BUN 26; GFR 77. 06/13 10:54 Order name: CBC with Automated Diff EDMS 06/13 10:54 Order name: XRAY Chest (1 view); Complete Time: 12:10 06/13 10:54 Order name: Liver (Hepatic) Function; Complete Time: 12:10 EDMS 06/13 10:54 Order name: Magnesium; Complete Time: 12:10 EDMS 06/13 12:47 Interpretation: Reviewed. 06/13 10:54 Order name: NT PRO-BNP; Complete Time: 12:10 EDMS 06/13 10:54 Order name: Protime (+INR); Complete Time: 12:10 EDMS 06/13 13:09 Order name: Manual Differential EDMS 06/13 13:36 Order name: Basic Metabolic Panel EDMS 06/13 13:36 Order name: Basic Metabolic Panel EDMS 06/13 13:36 Order name: CBC with Automated Diff EDMS 06/13 13:36 Order name: CBC with Automated Diff EDMS 06/13 13:36 Order name: NT PRO-BNP EDMS 06/13 13:36 Order name: NT PRO-BNP EDMS 06/13 14:12 Order name: Urine Dipstick-Ancillary EDMS 06/13 15:05 Order name: Lactate Sepsis 2 HR Follow-up EDMS 02/15 10:54 Order name: EKG; Complete Time: 10:55 cp 06/13 10:54 Order name: Cardiac monitoring; Complete Time: 10: cp 06/13 10:54 Order name: EKG - Nurse/Tech; Complete Time: 10: cp 06/13 10:54 Order name: IV Saline Lock; Complete Time: 10: cp 06/13 10:54 Order name: Labs collected and sent; Complete Time: 10: cp 06/13 10:54 Order name: O2 Per Protocol; Complete Time: 10: cp 06/13 10:54 Order name: O2 Sat Monitoring; Complete Time: 10: cp 06/13 13:36 Order name: Regular EDMS EC:00 Rate is 88 beats/min. Rhythm is regular. ID interval is normal. QRS interval is normal. cp QT interval is normal. T waves are Inverted in lead aVR. Interpreted by me. Reviewed by me. Administered Medications: 13:00 Discontinued: NS 0.9% (30 ml/kg) 30 ml/kg IV at bolus once; Sepsis Protocol 11:24 Drug: SOLU-Medrol (methylPrednisoLONE) 125 mg Route: IVP; Site: right antecubital; ww 11:46 Follow up: Response: No adverse reaction ww 11:24 Drug: Albuterol - atroVENT (ipratropium) (3:1) (2.5 mg - 0.5 mg) 3 ml Route: Nebulizer; ww 11:45 Follow up: Response: No adverse reaction ww 12:21 Drug: NS 0.9% (30 ml/kg) 30 ml/kg Route: IV; Rate: bolus; Site: right antecubital; ww 13:31 Follow up: IV Status: Completed infusion; IV Intake: 1000ml ww 12:21 Drug: LevaQUIN (levofloxacin) 750 mg Volume: 150 ml; Route: IVPB; Infused Over: 90 ww mins; Site: right antecubital; 15:26 Follow up: IV Status: Completed infusion ww 14:14 Drug: Magnesium Sulfate 1 grams Route: IVPB; Infused Over: 1 hrs; Site: right antecubital; 15:26 Follow up: IV Status: Completed infusion Disposition: 16:45 Co-signature as Attending Physician, George Valdes MD I agree with the assessment and rn plan of care. Attestation: The patient's history, exam findings, diagnostics, and a summary of any interventions or procedures was reviewed in detail with Sachin ORELLANA. Disposition Summary: 06/13/21 13:07 Hospitalization Ordered Hospitalization Status: Inpatient Admission cp Provider: Александр Maciel cp Location: Telemetry/MedSurg (Inpatient) cp Condition: Stable cp Problem: an acute exacerbation cp Symptoms: have improved cp Bed/Room Type: Standard cp Room Assignment: 214(06/13/21 15:37) dw Diagnosis - COPD/ Chronic obstructive pulmonary disease with acute lower respiratory infection cp - Chronic respiratory failure with hypoxia cp Forms: - Medication Reconciliation Form cp - SBAR form cp Signatures: Dispatcher [employer] Nely Sierra RN RN dw Nieto, Roman, MD MD rn Page, Corey, PA PA cp Rosetta Butcher RN RN ap3 Torie Short RN RN ll1 Tanesha Patel RN RN ww Corrections: (The following items were deleted from the chart) 15:37 13:07 cp dw
--- NOTE | 2021-06-13 13:08 | ER ---
Nurse's Notes [facility] Name: Alexandro Reinoso Age: 75 yrs Sex: Male : 1945 Arrival Date: 06/13/2021 Time: 10:38 Bed 14 Private MD: Александр Maciel C Diagnosis: COPD/ Chronic obstructive pulmonary disease with acute lower respiratory infection;Chronic respiratory failure with hypoxia Presentation: 06/13 10:51 Chief complaint: Patient states: he has been feeling as he has an increase of shortness ap3 of breath the last couple of days. patient is on home oxygen concentrator, and wears a reported 4-5Liters of oxygen at home. Patient states he was on his way to pulmonary rehab this morning when he told his to drive him to the ER instead. Coronavirus screen: shortness of breath, Client presents with at least one sign or symptom that may indicate coronavirus-19. Standard/surgical mask placed on the client. Provider contacted for isolation considerations. Ebola Screen: No symptoms or risks identified at this time. Initial Sepsis Screen: Does the patient meet any 2 criteria? RR > 20 per min. HR > 90 bpm. Yes Does the patient have a suspected source of infection? No. Patient's initial sepsis screen is negative. Risk Assessment: Do you want to hurt yourself or someone else? Patient reports no desire to harm self or others. Onset of symptoms was June 10, 2021. 10:51 Method Of Arrival: Wheelchair ap3 10:51 Acuity: SAMUEL 2 ap3 Triage Assessment: 10:53 General: Appears distressed, Behavior is calm. Pain: Denies pain. Neuro: Level of ap3 Consciousness is awake, alert, obeys commands, Oriented to person, place, time, situation, Appropriate for age Speech is normal. Cardiovascular: Patient's skin is warm and dry. Respiratory: Airway is patent Respiratory effort is even, labored, Respiratory pattern is regular, symmetrical, Onset: The symptoms/episode began/occurred gradually, the patient has moderate shortness of breath. Historical: - Allergies: 10:47 PENICILLINS; ll1 - Home Meds: 10:54 diltiazem HCl 240 mg Oral CDER 1 cap 2X day [Active]; atorvastatin 80 mg oral tab 1 tab ap3 once daily [Active]; clopidogrel 75 mg oral tab [Active]; nitroglycerin 0.4 mg SL subl 1 tab as needed [Active]; aspirin 81 mg Oral TbEC 1 tab once daily [Active]; Shorty-Dur 200 mg Oral Tb12 1 tab twice a day [Active]; prednisone 10 mg Oral tab 1 tab once daily [Active]; prednisone 5 mg Oral tab 1 tab once daily [Active]; Ventolin HFA 90 mcg/actuation Nebulizer HFAA 2 puffs every 4-6 hours [Active]; Albuterol Nebulizer as needed [Active]; famotidine 20 mg Oral tab 1 tab once daily [Active]; metformin 500 mg Oral tab 1 tab 2 times per day [Active]; spironolactone 25 mg Oral tab 1 tab once daily [Active]; Januvia 100 mg oral tab 1 tab once daily [Active]; montelukast 10 mg oral tab 1 tab once daily [Active]; - PMHx: 10:47 CAD; COPD; High Cholesterol; Hypertension; Myocardial infarction; ll1 - PSHx: 10:47 heart surgery; ll1 - Immunization history:: Client reports receiving the 2nd dose of the Covid vaccine, and booster Pneumococcal vaccine is up to date, Flu vaccine is up to date. - Social history:: Smoking status: Patient/guardian denies using tobacco, the patient reports quitting approximately 25 years ago. Screenin:00 Abuse screen: Denies threats or abuse. Nutritional screening: No deficits noted. ap3 Tuberculosis screening: No symptoms or risk factors identified. Fall Risk No fall in past 12 months (0 pts). Secondary diagnosis (15 points) impaired mobility, oxygen. IV access (20 points). Ambulatory Aid- Crutches/Cane/Walker (15 pts). Gait- Weak (10 pts.). Mental Status- Oriented to own ability (0 pts). Total Bradford Fall Scale indicates High Risk Score (45 or more points). Fall prevention measures have been instituted. Side Rails Up X 2 Placed Close to Nursing Station Frequent Obs/Assessments Occuring Family Present and informed to notify staff if the need to leave the bedside As available patient and family educated on Fall Prevention Program and Strategies. Assessment: 11:44 General: Appears uncomfortable, Behavior is calm, cooperative. Pain: Denies pain. ww Neuro: Level of Consciousness is awake, alert, obeys commands, Oriented to person, place, time, situation, Gait is steady, Speech is normal. Cardiovascular: Capillary refill < 3 seconds Patient's skin is warm and dry. Rhythm is regular. Respiratory: Reports shortness of breath air hunger Airway is patent Respiratory effort is labored, Respiratory pattern is tachypnea. GI: No signs and/or symptoms were reported involving the gastrointestinal system. Abdomen is round. : No signs and/or symptoms were reported regarding the genitourinary system. EENT: No signs and/or symptoms were reported regarding the EENT system. Derm: Skin is fragile, is thin. Musculoskeletal: No signs and/or symptoms reported regarding the musculoskeletal system. Circulation, motion, and sensation intact. 12:21 Reassessment: Patient appears in no apparent distress at this time. No changes from ww previously documented assessment. Patient and/or family updated on plan of care and expected duration. Pain level reassessed. Patient is alert, oriented x 3, equal unlabored respirations, skin warm/dry/pink. 13:30 Reassessment: Patient appears in no apparent distress at this time. No changes from ww previously documented assessment. Patient and/or family updated on plan of care and expected duration. Pain level reassessed. Patient is alert, oriented x 3, equal unlabored respirations, skin warm/dry/pink. 14:35 Reassessment: Patient appears in no apparent distress at this time. No changes from ww previously documented assessment. Patient and/or family updated on plan of care and expected duration. Pain level reassessed. Patient is alert, oriented x 3, equal unlabored respirations, skin warm/dry/pink. 15:25 Reassessment: Patient appears in no apparent distress at this time. No changes from ww previously documented assessment. Patient and/or family updated on plan of care and expected duration. Pain level reassessed. Patient is alert, oriented x 3, equal unlabored respirations, skin warm/dry/pink. Vital Signs: 10:46 BP 136 / 78; Pulse 94; Resp 22; Temp 98.0; Pulse Ox 80% on 4 lpm NC; Weight 65.77 kg; ap3 Height 5 ft. 6 in. (167.64 cm); 10:49 Pulse Ox 94% on Non-rebreather mask; ap3 11:15 Pulse Ox 98% on 4 lpm NC; ap3 11:47 BP 127 / 77; Pulse 94; Resp 14; Pulse Ox 93% on 4 lpm NC; ww 12:22 BP 132 / 82; Pulse 97; Resp 16; Pulse Ox 95% on 5 lpm NC; ww 13:30 BP 133 / 72; Pulse 98; Resp 16; Pulse Ox 92% on 5 lpm NC; ww 15:26 BP 136 / 72; Pulse 90; Resp 15; Pulse Ox 95% on 5 lpm NC; ww 10:46 Body Mass Index 23.40 (65.77 kg, 167.64 cm) ap3 ED Course: 10:38 Patient arrived in ED. as 10:43 Александр Maciel MD is Private Physician. as 10:47 Sachin Ayers PA is PHCP. cp 10:47 George Valdes MD is Attending Physician. cp 10:47 Arm band placed on Patient placed in an exam room, on a stretcher. ll1 10:53 Triage completed. ap3 10:55 Tanesha Patel, RN is Primary Nurse. ww 10:59 EKG done, by ED staff, reviewed by Sachin ORELLANA. em1 11:00 Patient has correct armband on for positive identification. Placed in gown. Bed in low ap3 position. Call light in reach. Side rails up X2. Adult w/ patient. playground supervisor on. Pulse ox on. NIBP on. Door closed. Noise minimized. 11:24 Basic Metabolic Panel Sent. ww 11:24 CBC with Diff Sent. ww 11:24 LFT's Sent. ww 11:24 Magnesium Sent. ww 11:24 NT PRO-BNP Sent. ww 11:24 PT-INR Sent. ww 11:44 Inserted saline lock: 18 gauge in right antecubital area, using aseptic technique. ww Blood collected. 11:48 XRAY Chest (1 view) In Process Unspecified. EDMS 13:06 Александр Maciel MD is Hospitalizing Provider. cp 16:02 No provider procedures requiring assistance completed. Patient admitted, IV remains in ww place. Administered Medications: 13:00 Discontinued: NS 0.9% (30 ml/kg) 30 ml/kg IV at bolus once; Sepsis Protocol cp 11:24 Drug: SOLU-Medrol (methylPrednisoLONE) 125 mg Route: IVP; Site: right antecubital; ww 11:46 Follow up: Response: No adverse reaction ww 11:24 Drug: Albuterol - atroVENT (ipratropium) (3:1) (2.5 mg - 0.5 mg) 3 ml Route: Nebulizer; ww 11:45 Follow up: Response: No adverse reaction ww 12:21 Drug: NS 0.9% (30 ml/kg) 30 ml/kg Route: IV; Rate: bolus; Site: right antecubital; ww 13:31 Follow up: IV Status: Completed infusion; IV Intake: 1000ml ww 12:21 Drug: LevaQUIN (levofloxacin) 750 mg Volume: 150 ml; Route: IVPB; Infused Over: 90 ww mins; Site: right antecubital; 15:26 Follow up: IV Status: Completed infusion ww 14:14 Drug: Magnesium Sulfate 1 grams Route: IVPB; Infused Over: 1 hrs; Site: right ww antecubital; 15:26 Follow up: IV Status: Completed infusion ww Intake: 13:31 IV: 1000ml; Total: 1000ml. ww Outcome: 13:07 Decision to Hospitalize by Provider. cp 16:02 Admitted to Med/surg via stretcher, room 214, with oxygen, with chart, Report called to leon Wynn 16:02 Condition: stable 16:02 Instructed on the need for admit. 16:23 Patient left the ED. ww Signatures: Dispatcher [employer] EDMS Anita Calle Eric em1 Sachin Ayers PA PA cp Rosetta Butcher, RN RN ap3 Torie Short RN RN ll1 Tanesha Patel RN RN ww Corrections: (The following items were deleted from the chart) 11:01 10:51 BP 136 / 78; Pulse 94bpm; Resp 22bpm; Pulse Ox 80% 4 lpm Nasal Cannula; Temp ap3 98.0F; 65.77 kg; Height 5 ft. 6 in.; BMI: 23.4; ap3 11:01 11:00 Pulse Ox 94% Non-rebreather mask; ap3 ap3 11:02 10:53 Pulse Ox 94% Non-rebreather mask; ap3 ap3
[2021-06-13 13:09] LABS: Platelet Estimate ADEQ
[2021-06-13 13:10] LABS: Blood Morphology Comment NOT SEEN (NOT SEEN); Platelets, Giant PRESENT
[2021-06-13] MEDS ORDERED: ACETAMINOPHEN 500 MG TAB PO PRN (13:33)
[2021-06-13] MEDS ORDERED: ONDANSETRON 4 MG/2 ML VIAL IV PRN (13:33)
[2021-06-13] MEDS: ALBUTEROL 2.5 MG/3 ML NEB SOL NEB SCH ×3 (14:00→19:22)
[2021-06-13] MEDS: Levofloxacin 750mg IV 750 MG/150 ML BAG IV SCH (14:00)
[2021-06-13] MEDS: IPRATROPIUM BROM 0.5MG/2.5ML NEB SCH ×3 (14:00→19:22)
[2021-06-13 14:12] LABS: Urine Blood Negative (Negative); Urine Glucose Negative (Negative); Urine Protein Negative (Negative); Urine Specific Gravity 1.015 (1.005-1.030); Urine pH 6.5 (5.0-7.0)
[2021-06-13 14:35] LABS: Urine Bacteria <20 /HPF (NONE SEEN); Urine RBC <5 /HPF (NONE SEEN)
[2021-06-13 15:12] VITALS: BMI 23.3
[2021-06-13] MEDS: METHYLPREDNISOLONE 125 MG INJ IV SCH (17:50)
[2021-06-13] MEDS ORDERED: D50W 25 GM/50 ML SYRINGE IV PRN (21:04)
[2021-06-13] MEDS ORDERED: GLUCAGON 1 MG/VIAL IM PRN (21:04)
[2021-06-13] MEDS: FAMOTIDINE 20 MG TAB PO SCH (22:14)
[2021-06-13] MEDS: ATORVASTATIN 80 MG TAB PO SCH (22:15)
[2021-06-13] MEDS: INSULIN -REGULAR HUMAN 50 UNIT/0.5 ML ML SQ SCH (22:15)
[2021-06-14] MEDS: ALBUTEROL 2.5 MG/3 ML NEB SOL NEB SCH ×6 (00:58→18:53)
[2021-06-14] MEDS: METHYLPREDNISOLONE 125 MG INJ IV SCH ×3 (00:58→16:38)
[2021-06-14] MEDS: IPRATROPIUM BROM 0.5MG/2.5ML NEB SCH ×6 (00:58→18:53)
[2021-06-14 04:11] LABS: Absolute Lymphocytes (CBC) 0.3 K/uL (0.7-4.9); Hematocrit 37.4 % (39.6-49.0); Lymphocytes % 3.3 % (15.3-44.8); RBC Red Blood Cell Count 4.19 M/uL (4.33-5.43)
[2021-06-14 04:24] LABS: BUN Blood Urea Nitrogen 19 mg/dL (7-18); Bicarbonate 26 mmol/L (21-32); Glucose Level 231 mg/dL (74-106); NT PRO-BNP 323 pg/mL (<125); Potassium 4.1 mmol/L (3.5-5.1); Sodium Level 137 mmol/L (136-145)
[2021-06-14] MEDS: ENOXAPARIN 40 MG/0.4 ML SQ SCH (08:54)
[2021-06-14] MEDS: ASPIRIN EC 81 MG TAB PO SCH (08:55)
[2021-06-14] MEDS: SPIRONOLACTONE 25 MG TABLET PO SCH (08:55)
[2021-06-14] MEDS: METFORMIN ER 500 MG TAB PO SCH ×2 (08:55→21:00)
[2021-06-14] MEDS: DIPHENHYDRAMINE 25 MG TAB/CAP PO SCH (08:55)
[2021-06-14] MEDS: SITAGLIPTIN PHOS 100 MG TAB PO SCH (08:56)
[2021-06-14] MEDS: CLOPIDOGREL 75 MG TABLET PO SCH (08:57)
[2021-06-14] MEDS: INSULIN -REGULAR HUMAN 50 UNIT/0.5 ML ML SQ SCH ×4 (08:59→21:01)
[2021-06-14] MEDS: DILTIAZEM PO SCH (09:00)
[2021-06-14] MEDS ORDERED: BUDESONIDE 0.5 MG/2 ML NEB IH SCH (09:00)
[2021-06-14] MEDS: [UNRECOGNIZED DRUG - OTHER] PO SCH (09:00)
--- NOTE | 2021-06-14 09:04 | HP ---
Date of Admission: 06/13/2021 Chief Complaint: Shortness of breath and low oxygen level. History Of Present Illness: This is a 75-year-old pleasant male patient, who has severe COPD and he is oxygen dependent with continuous home oxygen at around 4-5 L/minute and also steroid dependent wit h his maintenance dose of steroid lately 15 mg prednisone daily. The patient denies any fever, chill s, but in last few days he is having increasing trouble with shortness of breath and says that at res t his oxygen level is around 92% to 95%, but with any activity in last few days, it is dropping down in the range between 70% to 80% even with use of oxygen and such activity could be just walking acros s the room. He has chronic cough and coughs up some mucus from time to time, but in last few days, i t has little off-white color as he reports. He came to emergency room with this. After he was evalu ated, he was admitted to the hospital with acute exacerbation of COPD problem. Medications: List reviewed. Allergies: TO PENICILLIN. Review of Systems: Respiratory: As mentioned above. All other systems reviewed and negative. Past Medical History: Significant for severe COPD, diabetes mellitus, hypertension, hyperlipidemia, coronary artery disease, history of myocardial infarction in December 2018, benign prostatic hypertr ophy. His COPD is severe and he is oxygen dependent and steroid dependent. Past Surgical History: Coronary artery stent placement in December 2018 and coronary artery bypass surgery in 2008. Family History: Father had diabetes, stroke. Mother had COPD and diabetes. Brother and sister with diabetes. Social History: Prior history of smoking, not at present time. Use of alcohol is negative. Physical Examination: Vital Signs: Temperature 98, pulse 94, respiratory rate 22, blood pressure 136/78, oxygen saturation 80% on 4 L nasal cannula oxygen. Height 5 feet 6 inches, weight 144 pounds. General: Awake, alert, oriented, not in distress. HEENT: Head atraumatic, normocephalic. Conjunctivae nonerythematous. Sclerae white. Mouth, no thr ush or edema noted. Ears/Nose, no mass, lesion, discharge noted. Neck: Supple. No JVD, lymph nodes, bruit, thyromegaly noted. Lungs: Bilateral good equal air entry with presence of rales noted in lung bases. Heart: Normal heart sounds, no murmur or gallop. Abdomen: Soft, bowel sounds normal. No guarding, rigidity, tenderness, mass, hepatosplenomegaly, dis tention, or bruit noted. Extremities: No leg edema. No calf tenderness. Skin: No rash, ulcer, cellulitis. Lymphatics: No lymph node enlargement in neck, supraclavicular, infraclavicular region. Neuro: No focal neurological deficit. Chest: Unremarkable. External Genitalia: Deferred. Rectal: Deferred. Laboratory Data: Chest x-ray shows changes of severe COPD. No definite infiltrate. White count 15. 1, hemoglobin 13.7, platelets 299. Sodium 134, potassium 4.4, chloride 99, bicarb 26, BUN 26, creati nine 0.95, glucose 193, magnesium 1.6. Liver function tests unremarkable. Procalcitonin less than 0 .05. Lactic acid 5. Urinalysis negative. COVID-19 test negative. Influenza A and B negative. Impression: 1.Acute exacerbation of chronic obstructive pulmonary disease. 2.Coronary artery disease. 3.Type 2 diabetes mellitus. 4.Hypertension. 5.Hyperlipidemia. 6.Benign prostatic hypertrophy. Plan: Admit the patient to hospital for further evaluation and management of this problem. The zoltan ent is appropriate for inpatient and is expected to spend 2 midnights in hospital. We will continue his home medications per order. DVT prophylaxis will be given using Lovenox. We will give IV steroi d and IV antibiotic per order, and details and plan of treatment discussed with the patient. I will see him tomorrow for followup. The patient is expected to spend 2 midnights in hospital. BEATRIZ/MODL Voice ID: [id number]
--- NOTE | 2021-06-14 11:16 | EKG ---
Test Date: 2021-06-13 Test Time: 10:53:17 Binder Fixer: EZE MEASUREMENT RESULTS: Intervals: Rate: 88 GA: 162 QRSD: 84 QT: 372 QTc: 450 [place]: P: 65 GA: 162 QRS: 24 T: 55 INTERPRETIVE STATEMENTS: Normal sinus rhythm Normal ECG Compared to ECG 04/04/2021 19:02:12 Sinus tachycardia no longer present Fusion complex(es) no longer present Myocardial infarct finding no longer present Electronically Signed On 06-14-21 11:13:54 FREELANCE TRANSLATOR by Lyle Gunderson
[2021-06-14] MEDS: Levofloxacin 750mg IV 750 MG/150 ML BAG IV SCH (14:50)
[2021-06-14] MEDS: FAMOTIDINE 20 MG TAB PO SCH (21:00)
[2021-06-14] MEDS: ATORVASTATIN 80 MG TAB PO SCH (21:00)
[2021-06-15] MEDS: ALBUTEROL 2.5 MG/3 ML NEB SOL NEB SCH ×3 (00:48→07:40)
[2021-06-15] MEDS: IPRATROPIUM BROM 0.5MG/2.5ML NEB SCH ×3 (00:48→07:40)
[2021-06-15] MEDS: METHYLPREDNISOLONE 125 MG INJ IV SCH ×2 (00:52→08:25)
[2021-06-15 04:23] VITALS: BP 121/76
[2021-06-15] MEDS: INSULIN -REGULAR HUMAN 50 UNIT/0.5 ML ML SQ SCH (07:30)
[2021-06-15] MEDS: DIPHENHYDRAMINE 25 MG TAB/CAP PO SCH (08:24)
[2021-06-15] MEDS: Levofloxacin 750mg IV 750 MG/150 ML BAG IV SCH (08:24)
[2021-06-15] MEDS: CLOPIDOGREL 75 MG TABLET PO SCH (08:24)
[2021-06-15] MEDS: ASPIRIN EC 81 MG TAB PO SCH (08:25)
[2021-06-15] MEDS: METFORMIN ER 500 MG TAB PO SCH (08:25)
[2021-06-15] MEDS: SPIRONOLACTONE 25 MG TABLET PO SCH (08:25)
[2021-06-15] MEDS: [UNRECOGNIZED DRUG - OTHER] PO SCH (08:26)
[2021-06-15] MEDS: ENOXAPARIN 40 MG/0.4 ML SQ SCH (08:26)
[2021-06-15] MEDS: DILTIAZEM PO SCH (08:26)
[2021-06-15] MEDS: SITAGLIPTIN PHOS 100 MG TAB PO SCH (08:29)
--- NOTE | 2021-06-15 08:37 | PN ---
Date of Progress Note: 06/14/2021 Subjective: The patient was seen this morning for followup. He was lying in bed, not in distress. He did not get much sleep last night, but overall feels little better this morning compared to yester day. Objective: Vital Signs: Reviewed. HEENT: Unremarkable. Lungs: Bilateral good equal air entry. Not in respiratory distress. Minimal basal rales present, u nchanged from yesterday. Heart: Sounds normal. Abdomen: Soft. Bowel sounds normal. No guarding, rigidity, tenderness, or distention. Extremities: No leg edema. Laboratory Data: White count 7.7, hemoglobin 12.6, platelets 226. Sodium 137, potassium 4.1, chlori de 105, bicarb 26, BUN 19, creatinine 0.75, glucose 231. Impression: 1.Acute exacerbation of chronic obstructive pulmonary disease. 2.Type 2 diabetes mellitus. 3.Hypertension. 4.Coronary artery disease. Plan: We will go ahead and continue current oxygen, nebulizer treatment, IV steroid, and antibiotics . Ambulation in the room was encouraged. Continue DVT prophylaxis. I will see him tomorrow for fol lowup. Possible discharge to go home either tomorrow or day after tomorrow depending on his conditio n. BEATRIZ/MODL Voice ID: [id number] Report ID: [id number]
[2021-06-15 08:45] VITALS: TEMP 97.8
[2021-06-15 09:03] VITALS: O2SAT 98
--- NOTE | 2021-06-16 18:43 | DS ---
Date of Discharge: 06/15/2021 Disposition: Discharged to go home. Physical Examination: HEENT: Unremarkable. Lungs: Clear to auscultation. Heart: Sounds normal. Abdomen: Soft. Bowel sounds normal. No guarding, rigidity, tenderness, or distention. Extremities: No leg edema. Laboratory Data: Upon admission, white count 15.1, hemoglobin 13.7, platelets 299. Yesterday, white count 7.7, hemoglobin 12.6, platelets 226. Yesterday, chemistry sodium 137, potassium 4.1, chloride 105, bicarb 26, BUN 19, creatinine 0.75, glucose 231. Upon admission, sodium 134, potassium 4.4, ch loride 99, bicarb 26, BUN 26, creatinine 0.95, glucose 193, magnesium low at 1.6. Liver function orly ts are unremarkable. Procalcitonin less than 0.05. Lactic acid 5 upon admission and repeat lactic a freida 1.7. Hospital Course: A 75-year-old male patient came into emergency room with complaints of shortness of breath and low oxygen level. Please see dictated H and P for more information. The patient has sev ere COPD and he is oxygen-dependent, using home oxygen at 4 to 5 L/minute per nasal cannula and also steroid dependent. Normally, he takes prednisone 10 mg daily, but in last few days, he increased dos e to 15 mg daily after talking to his wax pumper. After he came into ER, he was admitted to the [facility] with acute exacerbation of COPD. Please see dictated H and P for more information. Chest x- ray was negative for any infiltrate. There was no evidence of sepsis. After he was admitted to the hospital, he received IV steroid, IV antibiotic, oxygen therapy, and nebulizer treatment. Home medic ations were continued. Overall, his condition improved and today he was able to go home in stable co ndition. The patient uses a very long oxygen tube, and I advised him to use shorter tube so that way he can get adequate amount of oxygen delivered. Final Diagnoses: 1.Acute exacerbation of chronic obstructive pulmonary disease. 2.Chronic respiratory failure with hypoxia, with acute exacerbation. 3.Coronary artery disease. 4.Type 2 diabetes mellitus. 5.Hypertension. 6.Hyperlipidemia. 7.Benign prostatic hypertrophy. Discharge Medications And Instructions: 1.Continue all prior home medications. 2.Take Levaquin 500 mg p.o. daily for 5 days. 3.Take prednisone 10 mg, take 2 tablets by mouth 2 times a day for 4 days, then 2 tablets by mouth d aily for 4 days, then stop and after stopping this particular prednisone treatment, the patient to re start his usual dose of prednisone, which is 10 mg daily. 4.Follow up in my office on 06/20/2021, which is next week on Saturday. BEATRIZ/SYDNIEL Voice ID: [id number] Report ID: [id number]
== END 2021-06-15 11:07 | disposition home or self-care (01) | DRG 190 ==
LOC: ER 10:37 → ERHOLD 13:31 → 2ND 16:08
PROVIDERS: ADMIT Internal Medicine; ATTEND Internal Medicine
DX: J44.1 Chronic obstructive pulmonary disease with (acute) exacerbation (principal); J96.21 Acute and chronic respiratory failure with hypoxia; I25.10 Atherosclerotic heart disease of native coronary artery without angina pectoris; E11.9 Type 2 diabetes mellitus without complications; I10 Essential (primary) hypertension; E78.5 Hyperlipidemia, unspecified; N40.0 Benign prostatic hyperplasia without lower urinary tract symptoms; Z79.52 Long term (current) use of systemic steroids; Z99.81 Dependence on supplemental oxygen; Z88.0 Allergy status to penicillin; Z20.822 Contact with and (suspected) exposure to COVID-19
CPT/HCPCS: 0240U; 36415; 71045; 80048; 80076; 81003; 81015; 82947; 83605; 83735; 83880; 84145; 84484; 85025; 85610; 87040; 93005; 94640; 94760; 96365; 96366; 96367; 96368; 96375; 99285; J1650; J2930; J3475; J7030

== ENCOUNTER 2021-08-06 18:02 | Inpatient (IN) | payer OTHER, BC ==
--- OUTSIDE RECORDS SUMMARY | 2021-08-06 18:05 | XMS REPORT | Continuity of Care Document ---
:1945 Author Organization [facility] t Address [address] [place] [address] Care Team Providers Name Role Phone Tavon Maciel Primary Care Physician Brad MARTINEZ Attending Clinician BRAD Attending Clinician Unavailable BRAD Attending Clinician Unavailable Doctor Unassigned, Name Attending Clinician Unavailable IAN KEYES Attending Clinician Unavailable IAN KEYES Admitting Clinician Unavailable Payers Payer Name Policy Type Policy Number Effective Date Expiration Date S ource Problems Condition Condition Condition Status Onset Resolution Last Treating Co mments Source Name Details Category Date Date Treatment Clinician Date No known No known Disease Unive rs active active ity of problems problems [facility] [place] Allergies, Adverse Reactions, Alerts Allergy Allergy Status Severity Reaction(s) Onset Inactive Treating Comm ents Source Name Type Date Date Clinician Penicill Propensi Active Unknown - Uni vers ins ty to See comments 9-16 ity of adverse 00:00: [place] reaction 00 Medical s Branch PENICILL Drug Active Unknown-Cmnt Un last INS Class 9-16 ity of 00:00: [place] 00 Medical Branch PENICILL Allergy Active 2018-[address] [facility] INS 12-28 [facility] Social History Social Habit Start Date Stop Date Quantity Comments Source History of tobacco Cigarette Smoker University of use [facility] Exposure to Not sure University of SARS-CoV-2 (event) [place] [facility] History [facility] o f Alcohol Frequency [facility] Branch History [facility] University o f Alcohol Std Drinks [facility] History [facility] o f Alcohol Binge [facility] al Branch Alcohol intake 2021-07-27 2021-07-27 Ex-drinker University 00:00:00 00:00:00 (finding) [facility] Alcohol Comment 2021-03-31 2021-03-31 6 pack/day; Universi ty of 00:00:00 00:00:00 stopped 26 yrs [facility] Tobacco use and 2021-01-12 2021-01-12 Never used Universit y of exposure 00:00:00 00:00:00 [facility] Cigarettes smoked 2021-01-12 2021-01-12 Univers ity of current (pack per 00:00:00 00:00:00 [facility] ) - Reported Branch Cigarette 2021-01-12 2021-01-12 University of pack-years 00:00:00 00:00:00 [facility] Sex Ass[birth year] Universit y of 00:00:00 00:00:00 [facility] Smoking Status Start Date Stop Date Source Former smoker 2021-01-12 00:00:00 2021-01-12 00:00:00 Universi ty of [facility] Medications Ordered Filled Start Stop Current Ordering Indication Dosage Frequency Signature Comments Components Source Medication Medication Date Date Medication? Clinician (SIG) Name Name diltiazem Yes 240mg Take 240 Uni vers XR 240 mg 3-31 mg by ity of 24 hr 15:08: mouth 2 [facility] 51 (two) Medical times [place] daily. atorvastati Yes 80mg Take 80 mg Univers n 80 mg 3-31 by mouth ity of tablet 15:08: at [place] [address] bedtime. Medical Branch clopidogreL Yes 75mg Take 75 mg Univers 75 mg 3-31 by mouth ity of tablet 15:08: daily. [place] [address] Medical Branch nitroglycer 2022-[address] 0.4 U nivers in 0.4 mg 3-31 mg under ity of sublingual 15:08: the tongue [place] tablet 51 every 5 Medical (five) Branch minutes as needed for Chest pain. aspirin 81 0 Yes 81mg Take 81 mg U nivers mg chewable 3-31 by mouth ity of tablet 15:08: daily. [place] [address] Medical Branch predniSONE 2021-0 Yes 15mg Take 15 mg U nivers 10 mg 3-31 by mouth ity of tablet 15:08: daily. [place] [address] occasional Medical ly takes Branch 5mg at PM metFORMIN 2021-0 Yes 500mg Take 500 Uni vers 500 mg 3-31 mg by ity of tablet 15:08: mouth 2 [place] [address] (two) Medical times Branch daily with meals. spironolact 0 Yes 25mg Take 25 mg Univers one 25 mg 3-31 by mouth ity of tablet 15:08: daily. [address] SITagliptin 0 Yes 100mg Take 100 U nivers 100 mg 3-31 mg by ity of tablet 15:08: mouth [place] [address] daily. Medical Branch revefenacin Yes Inhale Univ ers (YUPELRI) 3-31 daily. ity of 175 mcg/3 15:08: [address] Branch Formoterol 0 Yes Inhale 2 Uni vers Fumarate 3-31 (two) ity of (PERFOROMIS 15:08: times [place] ) 20 mcg/2 51 daily. Medica l [facility] famotidine Yes 20mg Take 20 mg U nivers (PEPCID) 20 3-31 by mouth 2 it y of mg tablet 15:08: (two) [place] [address] times [facility] daily. Branch Indication s: stopped Famotidine diltiazem 0 Yes 240mg Take 240 Uni vers XR 240 mg 3-31 mg by ity of 24 hr 15:08: mouth 2 [place] capsule 51 (two) Medical times Branch daily. atorvastati 0 Yes 80mg Take 80 mg Univers n 80 mg 3-31 by mouth ity of tablet 15:08: at [place] [address] bedtime. Medical Branch clopidogreL 2021-0 Yes 75mg Take 75 mg Univers 75 mg 3-31 by mouth ity of tablet 15:08: daily. [address] nitroglycer Yes .4mg Place 0.4 U nivers in 0.4 mg 3-31 mg under ity of sublingual 15:08: the tongue [place] tablet 51 every 5 Medical (five) Branch minutes as needed for Chest pain. aspirin 81 0 Yes 81mg Take 81 mg U nivers mg chewable 3-31 by mouth ity of tablet 15:08: daily. [address] predniSONE 0 Yes 15mg Take 15 mg U nivers 10 mg 3-31 by mouth ity of tablet 15:08: daily. [place] [address] occasional Medical ly takes Branch 5mg at PM metFORMIN 0 Yes 500mg Take 500 Uni vers 500 mg 3-31 mg by ity of tablet 15:08: mouth 2 [place] [address] (two) Medical times [place] daily with meals. spironolact Yes 25mg Take 25 mg Univers one 25 mg 3-31 by mouth ity of tablet 15:08: daily. [address] SITagliptin Yes 100mg Take 100 U nivers 100 mg 3-31 mg by ity of tablet 15:08: mouth [place] daily. [facility] Branch revefenacin Yes Inhale Univ ers (YUPELRI) 3-31 daily. ity of 175 mcg/3 15:08: [address] Formoterol Yes Inhale 2 Uni vers Fumarate 3- (two) ity of (PERFOROMIS 15:08: times [place] T) 20 mcg/2 51 daily. Medica l mL [facility] famotidine Yes 20mg Take 20 mg U nivers (PEPCID) 20 3-31 by mouth 2 it y of mg tablet 15:08: (two) [place] [address] times [facility] daily. Branch Indication s: stopped Famotidine budesonide 2021- Yes [id number] 1mg Inhale 4 Univers 0.5 mg/2 mL 3-31 05-01 mL 2 (two) i ty of nebulizer 00:00: 04:59 times [place] solution 00 :00 daily for Medica l 30 days. Branch budesonide 0 2021- Yes [id number] 1mg Inhale 4 Univers 0.5 mg/2 mL 3-31 05-01 mL 2 (two) i ty of nebulizer 00:00: 04:59 times [place] solution 00 :00 daily for Medica l 30 days. Branch BUDESONIDE 2021- No [id number] INHALE ONE Univers 0.5 mg/2 mL 07-17 (1) AMPULE i ty of nebulizer 00:00: 00:00 BY MOUTH Raman as solution 00 :00 VIA Medical NEBULIZER Branch 2 TIMES DAILY. theophyllin 2020-04 Yes 200mg Take 1 Uni vers e 200 mg 24 2-15 capsule by it y of hr capsule 00:00: mouth [place] 00 daily. Medical Branch theophyllin 2020-04 Yes 200mg Take 1 Uni [...] by mouth ity of tablet 10:12: daily. [address] montelukast 2020-04 Yes 10mg Take 10 mg Univers 10 mg 2-03 by mouth ity of tablet 10:12: daily. [address] albuterol 2020-04 Yes 2{puff} Inhale 2 U nivers (VENTOLIN 2-03 Puffs 4 ity of HFA) 90 10:12: (four) [place] mcg/actuati 08 times Medical on inhaler daily. Branch famotidine 2020-04 Yes 20mg Take 20 mg U nivers 20 mg 2-03 by mouth ity of tablet 10:12: daily. [address] montelukast 2020-04 Yes 10mg Take 10 mg Univers 10 mg 2-03 by mouth ity of tablet 10:12: daily. [address] azithromyci 2020-04 Yes 250mg Take 1 Uni vers n 250 mg 0-01 tablet by ity of tablet 00:00: mouth [place] 00 every Medical Saturday, Branch Saturday and Saturday. azithromyci 2020-04 Yes 250mg Take 1 Uni vers n 250 mg 0-01 tablet by ity of tablet 00:00: mouth [address] Medical Saturday, Branch Saturday and Saturday. Vital Signs Vital Name Observation Time Observation Value Comments Source Oxygen saturation 2021-07-27 90 /min after 5-6min of Univers ity of in Arterial blood 20:20:00 deep breaths on [facility] edical by Pulse oximetry 4L [place] Systolic blood 2021-07-27 123 mm[Hg] University pressure 20:19:00 [facility] Diastolic blood 2021-07-27 65 mm[Hg] [place] o f pressure 20:19:00 [facility] Heart rate 2021-07-27 109 /min University 20:19:00 [facility] Respiratory rate 2021-07-27 23 /min [facility] 20:16:00 [facility] Body height 2021-07-27 165.1 cm [facility] 20:16:00 [facility] Body weight 2021-07-27 63.504 kg [facility] 20:16:00 [facility] BMI 2021-07-27 23.30 kg/m2 [facility] 20:16:00 [facility] Procedures Procedure Date / Time Performing Clinician Source Performed DME/SUPPLY JUSTIFICATION 2021-07-27 05:01:00 Doctor Unabertram, [facility] Encounters Start End Encounter Admission Attending Care Care Encounter Source Date/Time Date/Time Type Type Clinicians Facility Department ID 2021-07-27 2021-07-27 Office BECKI [place] [id number] Univers 15:00:00 15:30:00 Visit Bruno HAYES [id number] i ty [facility] [id number] Molly TEIXEIRA [id number] Nm dical NAL 085 Branch [facility] 2021-07-27 2021-07-27 Outpatient R BRUNO SALINAS [facility] 10 [id number] Univers 15:00:00 15:00:00 RBUNO SALINAS i ty of [facility] 2021-07-27 2021-07-27 Orders Doctor CARDOSO [id number] Univers 00:00:00 00:00:00 Only Unassigned, ANDRA [id number] [facility] [id number] Raman as [id number] [facility] rich 009 Branch Results Test Description Test Time [...] NOT 1092) ACCURATE CRE ATININE CLEARANCE IN PA EDICTING GLOMERULAR FILT RATION RATE. ESTIMATED GFR IS NOT APPLICABLE FOR DIALYSIS PATIENTS. CBC W/PLT COUNT & AUTO [id number] 05:12:00 Test Item Value Reference Range Interpretation [...] 0-1 PERCENT (BEAKER) (test code = 2801) [id number] 10:40:00 Test Item Value Reference Range Interpretation Comments MAGNESIUM (BEAKER) (test code = 1.9 mg/dL 1.6-2.6 627) BASIC METABOLIC [id number] 06:22:00 Test Item Value Reference Range Interpretation [...] NOT APPLICABLE FOR DIALYSIS PATIEN TS. TROPONIN [id number] 06:07:00 Test Item Value Reference Range Interpretation [...] (BEAKER) (test code = 2801) VANCOMYCIN LEVEL, [id number] 15:51:00 Test Item Value Reference Range Interpretation Comments VANCOMYCIN TROUGH (BEAKER) (test 7.0 ug/mL 10.0-20.0 L code = 522) [id number] 11:25:00 Test Item Value Reference Range Interpretation Comments PARTIAL THROMBOPLASTIN TIME 77.4 seconds 22.5-36.0 H (BEAKER) (test code = 760) RAD, CHEST, 1 VIEW, NON [id number] 09:31:00Reason for exam:->Balloon Pump Positioning; perform at [...] MDReport Verified Date/Time: 12/30/2018 09:31:26 Reading Location: [facility] Radiology Reading Room [id number] 03:22:00 Test Item Value Reference Range Interpretation Comments MAGNESIUM (BEAKER) (test code = 2.0 mg/dL 1.6-2.6 627) BASIC METABOLIC [id number] 03:22:00 Test Item Value Reference Range Interpretation [...] S NOT APPLICABLE FOR DIALYSIS PATIEN TS. [id number] 03:18:00 Test Item Value Reference Range Interpretation Comments PARTIAL THROMBOPLASTIN TIME 81.6 seconds 22.5-36.0 H (BEAKER) (test code = 760) CBC W/PLT COUNT & AUTO [id number] 03:08:00 Test Item Value Reference Range Interpretation [...] 0-1 PERCENT (BEAKER) (test code = 2801) [id number] 19:07:00 Test Item Value Reference Range Interpretation Comments PARTIAL THROMBOPLASTIN TIME 55.9 seconds 22.5-36.0 H (BEAKER) (test code = 760) TROPONIN [id number] 17:30:00 Test Item Value Reference Range Interpretation [...] failure, acidosis, acute neurological disease, and persistent tachyarrhythmia.[id number] 17:17:00 Test Item Value Reference Range Interpretation Comments POTASSIUM (BEAKER) (test code = 4.2 meq/L 3.5-5.1 379) [id number] 17:17:00 Test Item Value Reference Range Interpretation Comments MAGNESIUM (BEAKER) (test code = 2.2 mg/dL 1.6-2.6 627) HEMOGLOBIN [id number] 08:08:00 Test Item Value Reference Range Interpretation Comments HEMOGLOBIN A1C (BEAKER) (test code = 6.1 % 4.3-6.1 368) [id number] 04:35:00 Test Item Value Reference Range Interpretation Comments ACTIVATED CLOTTING TIME 180 sec TEST ED AT [facility] 6720 ([facility]) (test code = [place] [address]) [address] TSH/FREE T4 IF [id number] 04:24:00 Test Item Value Reference Range Interpretation Comments THYROID STIMULATING HORMONE 1.52 uIU/mL 0.35-4.94 (BEAKER) (test code = 772) TROPONIN [id number] 04:19:00 Test Item Value Reference Range Interpretation [...] failure, acidosis, acute neurological disease, and persistent tachyarrhythmia.[id number] 04:17:00 Test Item Value Reference Range Interpretation Comments PARTIAL THROMBOPLASTIN TIME > seconds 22.5-36.0 HH (BEAKER) (test code = 760) [id number] 04:11:00 Test Item Value Reference Range Interpretation Comments MAGNESIUM (BEAKER) (test code = 1.8 mg/dL 1.6-2.6 627) BASIC METABOLIC [id number] 04:11:00 Test Item Value Reference Range Interpretation [...] NOT APPLICABLE FOR DIALYSIS PATIEN TS. LIPID [id number] 04:11:00 Test Item Value Reference Range Interpretation [...] Very High >=190CBC W/PLT COUNT & AUTO [id number] 03:39:00 Test Item Value Reference Range Interpretation [...] ABSOLUTE COUNT 0.03 K/ L 0.04-0.54 L ([facility]) (test code = 416) BASOPHILS ABSOLUTE COUNT ([facility]) 0.02 K/ L 0.01-0.08 (test code = 417) IMMATURE GRANULOCYTES-RELATIVE 1 % 0-1 PERCENT ([facility]) (test code = 2801) [id number] 02:12:00 Test Item Value Reference Range Interpretation Comments ACTIVATED CLOTTING TIME 241 sec TEST ED AT [place] [address] ([facility]) (test code = [place] [facility]) [id number] 00:38:00 Test Item Value Reference Range Interpretation Comments ACTIVATED CLOTTING TIME 257 sec TEST ED AT [place] [address] ([facility]) (test code = [place] [address]) [id number] 00:38:00 Test Item Value Reference Range Interpretation Comments ACTIVATED CLOTTING TIME 202 sec TEST ED AT [place] [address] ([facility]) (test code = [place] [address]) [id number]
[2021-08-06 18:49] LABS: Absolute Lymphocytes (CBC) 0.5 K/uL (0.7-4.9); Lymphocytes % 2.7 % (15.3-44.8); MPV 8.4 fL (7.6-11.3)
[2021-08-06 18:57] LABS: Protime INR 0.99
[2021-08-06 19:07] LABS: Albumin 3.4 g/dL (3.4-5.0); Bilirubin Total 0.7 mg/dL (0.2-1.0); Potassium 4.2 mmol/L (3.5-5.1); Protein, Total 7.1 g/dL (6.4-8.2)
[2021-08-06 19:33] LABS: Arterial Blood Carboxyhemoglob 1.7 % (0-1.5); Blood Gas Oxyhemoglobin 89.2 % (94-97); Blood O2 Saturation 91.7 % (92-98.5)
[2021-08-06 19:43] LABS: Blood Morphology Comment NOT SEEN (NOT SEEN); Platelet Estimate ADEQ; White Blood Cell Scan OK (OK)
[2021-08-06] MEDS ORDERED: ALBUTEROL 2.5 MG/3 ML NEB SOL ONE (19:46)
[2021-08-06] MEDS ORDERED: NA CHLORIDE 0.9% 1,000 ML ONE (19:47)
[2021-08-06] MEDS ORDERED: Levofloxacin500mg IV 500 MG/100 ML BAG IV ONE (19:47)
[2021-08-06] MEDS ORDERED: IPRATROPIUM BROM 0.5MG/2.5ML ONE ×2 (19:47→23:22)
[2021-08-06 20:28] LABS: SARS-COV-2 RT PCR NEGATIVE (NEGATIVE)
--- NOTE | 2021-08-06 21:20 | RAD REPORT ---
EXAM DESCRIPTION: RAD - Chest Single View - 08/06/2021 9:00 pm CLINICAL HISTORY: SOB COMPARISON: Chest Single View dated 06/13/2021; Chest Pa And Lat (2 Views) dated 04/08/2021; Chest Si ngle View dated 04/05/2021; Chest Single View dated 04/04/2021 FINDINGS: Lines: None. Lungs: Chronic interstitial lung changes bilaterally . Opacities in the left mid lung have modestly w orsened. Pleural: No significant pleural effusions or pneumothorax. Cardiac: Cardiomegaly. Sternotomy. Bones: No acute fractures. Other: IMPRESSION: Mild worsening in aeration of the left mid lung concerning for acute pneumonia superimpo sed upon background of chronic interstitial lung disease.
[2021-08-06 21:27] LABS: NT PRO-BNP 244 pg/mL (<125)
--- NOTE | 2021-08-06 21:43 | EDPHYS ---
Physician Documentation [facility] Name: Alexandro Reinoso Age: 75 yrs Sex: Male : 1945 Arrival Date: 08/06/2021 Time: 18:03 Bed 14 Private MD: Александр Maciel C ED Physician Reza Latham HPI: 08/06 19:25 This 75 yrs old Male presents to ER via Wheelchair with complaints of Shortness Of mh7 Breath, Low O2. 19:25 The patient has shortness of breath with light activity. Onset: The symptoms/episode mh7 began/occurred 1 week(s) ago. Duration: The symptoms are intermittent, with no pattern. The patient's shortness of breath is aggravated by coughing, exertion, light activity, is alleviated by nothing. Associated signs and symptoms: Pertinent positives: chest pain, productive cough, Pertinent negatives: non-productive cough, diaphoresis, dizziness, fever, hemoptysis, loss of consciousness, nausea, numbness in extremities, visual changes, vomiting. Severity of symptoms: At their worst the symptoms were moderate 2 day(s) ago, in the emergency department the symptoms are unchanged. Historical: - Allergies: 18:21 PENICILLINS; ss - PMHx: 18:21 High Cholesterol; CAD; Myocardial infarction; COPD; Hypertension; ss - PSHx: 18:21 heart surgery; ss - Immunization history:: Client reports receiving the 2nd dose of the Covid vaccine. - Social history:: Smoking status: Patient/guardian denies using tobacco, but has a distant history of tobacco abuse. ROS: 19:25 Constitutional: Negative for fever, chills, and weight loss, Eyes: Negative for injury, mh7 pain, redness, and discharge, ENT: Negative for injury, pain, and discharge, Neck: Negative for injury, pain, and swelling, Abdomen/GI: Negative for abdominal pain, nausea, vomiting, diarrhea, and constipation, Back: Negative for injury and pain, : Negative for injury, bleeding, discharge, and swelling, MS/Extremity: Negative for injury and deformity, Skin: Negative for injury, rash, and discoloration, Neuro: Negative for headache, weakness, numbness, tingling, and seizure, Psych: Negative for depression, anxiety, suicide ideation, homicidal ideation, and hallucinations, Allergy/Immunology: Negative for hives, rash, and allergies, Endocrine: Negative for neck swelling, polydipsia, polyuria, polyphagia, and marked weight changes, Hematologic/Lymphatic: Negative for swollen nodes, abnormal bleeding, and unusual bruising. Exam: 19:25 Constitutional: This is a well developed, well nourished patient who is awake, alert, mh7 and in no acute distress. Head/Face: Normocephalic, atraumatic. Eyes: Pupils equal round and reactive to light, extra-ocular motions intact. Lids and lashes normal. Conjunctiva and sclera are non-icteric and not injected. Cornea within normal limits. Periorbital areas with no swelling, redness, or edema. Neck: Trachea midline, no thyromegaly or masses palpated, and no cervical lymphadenopathy. Supple, full range of motion without nuchal rigidity, or vertebral point tenderness. No Meningismus. Chest/axilla: Normal chest wall appearance and motion. Nontender with no deformity. No lesions are appreciated. 19:25 Abdomen/GI: Soft, non-tender, with normal bowel sounds. No distension or tympany. No guarding or rebound. No evidence of tenderness throughout. Back: No spinal tenderness. No costovertebral tenderness. Full range of motion. Skin: Warm, dry with normal turgor. Normal color with no rashes, no lesions, and no evidence of cellulitis. MS/ Extremity: Pulses equal, no cyanosis. Neurovascular intact. Full, normal range of motion. Neuro: Awake and alert, GCS 15, oriented to person, place, time, and situation. Cranial nerves II-XII grossly intact. Motor strength 5/5 in all extremities. Sensory grossly intact. Cerebellar exam normal. Normal gait. Psych: Awake, alert, with orientation to person, place and time. Behavior, mood, and affect are within normal limits. 19:25 Cardiovascular: Rate: tachycardic, Rhythm: regular, Pulses: no pulse deficits are appreciated, Heart sounds: normal, normal S1and S2, Edema: pedal edema, that is mild, JVD: is not appreciated. 19:25 Respiratory: the patient does not display signs of respiratory distress, Respirations: prolonged exhalation, that is mild, tachypnea, that is mild, Breath sounds: rhonchi, that are mild, are scattered, Respiratory rate: 24 Vital Signs: 18:21 BP 138 / 73; Pulse 110; Resp 25; Temp 98.1; Pulse Ox 80% on 4 lpm NC; Weight 63.5 kg; ss Height 5 ft. 5 in. (165.10 cm); Pain 5/10; 18:41 BP 140 / 81; Pulse 110; Resp 26; Pulse Ox 93% on Venturi mask; Pain 4/10; ss 19:57 BP 133 / 84; Pulse 99; Resp 17; Pulse Ox 95% on Venturi mask; Pain 1/10; al4 20:30 BP 122 / 79; Pulse 97; Resp 17; Pulse Ox 100% on Venturi mask; al4 21:00 BP 131 / 78; Pulse 99; Resp 17; Pulse Ox 99% on Venturi mask; al4 22:00 BP 149 / 75; Pulse 97; Resp 18 S; Pulse Ox 99% on Venturi mask; al4 23:00 BP 135 / 81; Pulse 95; Resp 19 S; Pulse Ox 99% on Venturi mask; al4 23:15 BP 134 / 64; Pulse 99; Resp 20 S; Pulse Ox 99% on Venturi mask; al4 18:21 Body Mass Index 23.30 (63.50 kg, 165.10 cm) ss MDM: 21:39 Differential diagnosis: Anemia Anxiety Reaction asthma, Bronchitis CHF exacerbation, 7 Chronic Obstructive Pulmonary Disease Myocardial Infarction pneumonia, Pneumothorax Psychogenic pulmonary edema, reactive airway disease. Antibiotic administration: Levaquin given. Data reviewed: vital signs, nurses notes, old medical records, lab test result(s), cardiac enzymes, CBC, electrolytes, Flu: negative EKG, radiologic studies, plain films. Data interpreted: Pulse oximetry: on Venti mask 40% is 95 %. Interpretation: acceptable. Counseling: I had a detailed discussion with the patient and/or guardian regarding: the historical points, exam findings, and any diagnostic results supporting the discharge/admit diagnosis, lab results, radiology results, the need for further work-up and treatment in the hospital. Response to treatment: the patient's symptoms have mildly improved after treatment. 21:42 Patient medically screened. [facility] 08/06 18:23 Order name: Blood Culture Adult (2) 08/06 18:23 Order name: CBC with Diff; Complete Time: 19:57 08/06 18:23 Order name: CMP; Complete Time: 19:16 08/06 18:23 Order name: Lactate; Complete Time: 19:57 08/06 18:23 Order name: Protime (+inr); Complete Time: 19:05 08/06 18:23 Order name: Ptt, Activated; Complete Time: 19:05 08/06 19:07 Order name: Troponin High Sensitivity; Complete Time: 21:29 [facility] 08/06 19:17 Order name: Arterial Blood Gas; Complete Time: 19:57 [facility] 08/06 19:17 Order name: Ketone, Serum; Complete Time: 21:29 7 08/06 19:17 Order name: PROBNP; Complete Time: 21:29 [facility] 08/06 19:18 Order name: COVID-19/FLU A+B (Document "Date of Onset" if Symptomatic); Complete Time: [facility] 20:33 08/06 19:18 Order name: Procalcitonin; Complete Time: 21:53 [facility] 08/06 19:44 Order name: CBC Smear Scan; Complete Time: 19:57 [facility] 08/06 20:05 Order name: Glucose, Ancillary Testing; Complete Time: 20:16 [facility] 08/06 19:07 Order name: Chest Single View XRAY; Complete Time: 21:23 [facility] 08/06 21:54 Order name: Basic Metabolic Panel EDME 08/06 21:54 Order name: Basic Metabolic Panel EDMS 08/06 21:54 Order name: CBC with Automated Diff EDMS 08/06 21:54 Order name: CBC with Automated Diff EDMS 08/06 21:54 Order name: CKMB Creatine Kinase MB EDMS 08/06 21:54 Order name: CKMB Creatine Kinase MB EDMS 08/06 21:54 Order name: CKMB Creatine Kinase MB EDMS 08/06 21:54 Order name: CKMB Creatine Kinase MB EDMS 08/06 21:54 Order name: Lactate EDMS 08/06 21:54 Order name: Lactate EDMS 08/06 21:54 Order name: Lipid Profile EDMS 08/06 21:54 Order name: Lipid Profile EDMS 08/06 22:22 Order name: Lactate Sepsis 2 HR Follow-up EDMS 08/06 22:36 Order name: Urine Dipstick-Ancillary EDMS 08/06 18:23 Order name: Accucheck; Complete Time: 19:55 08/06 18:23 Order name: Cardiac monitoring; Complete Time: 18:39 ss 08/06 18:23 Order name: EKG - Nurse/Tech; Complete Time: 18:39 ss 08/06 18:23 Order name: IV Saline Lock - Large Bore; Complete Time: 18:39 ss 08/06 18:23 Order name: Labs collected and sent; Complete Time: 18:39 ss 08/06 18:23 Order name: O2 Per Protocol; Complete Time: 18:39 ss 08/06 18:23 Order name: O2 Sat Monitoring; Complete Time: 18:39 ss 08/06 19:17 Order name: Urine Dipstick-Ancillary (obtain specimen); Complete Time: 22:39 7 08/06 21:54 Order name: 60g Consistent Carbohydrate (ADA ) EDMS Administered Medications: 19:49 Drug: NS 0.9% 500 ml Route: IV; Rate: bolus; Site: right antecubital; al4 20:59 Follow up: IV Status: Completed infusion; IV Intake: 500ml al4 19:55 Drug: LevaQUIN (levofloxacin) 500 mg Volume: 100 ml; Route: IVPB; Infused Over: 60 al4 mins; Site: right antecubital; 22:10 Follow up: IV Status: Completed infusion; IV Intake: 100ml al4 20:31 Drug: Albuterol 2.5 mg Route: Inhalation; al4 20:59 Follow up: Response: No adverse reaction al4 20:31 Drug: AtroVENT (ipratropium) Aerosol 0.5 mg Route: Inhalation; al4 21:00 Follow up: Response: No adverse reaction al4 21:27 Drug: NS 0.9% 500 ml Route: IV; Rate: bolus; Site: right antecubital; al4 22:10 Follow up: IV Status: Completed infusion; IV Intake: 500ml al4 22:09 Drug: SOLU-Medrol (methylPrednisoLONE) 60 mg Route: IVP; Site: right antecubital; al4 23:05 Follow up: Response: No adverse reaction al4 Disposition Summary: 08/06/21 21:42 Hospitalization Ordered Hospitalization Status: Inpatient Admission [facility] Provider: Александр Maciel Location: Telemetry/MedSurg (Inpatient) [facility] Condition: Stable [facility] Problem: new [facility] Symptoms: have improved [facility] Bed/Room Type: Standard [facility] Room Assignment: 221(08/06/21 22:06) Diagnosis - Pneumonia, unspecified organism [facility] - Respiratory failure, unspecified with hypoxia [facility] - Type 2 diabetes mellitus with hyperglycemia [facility] Forms: - Medication Reconciliation Form [facility] - SBAR form [facility] Signatures: Dispatcher [employer] EDMandy Valente RN RN Vera Calvert RN RN ss Holmes, Maurice, MD MD [facility] Willam Kapadia Corrections: (The following items were deleted from the chart) 18: 18:21 Immunization history: Client reports receiving the 2nd dose of the Covid vaccine, [facility] 18:22 18:21 Social history: Smoking status: Patient reports the use of cigarette tobacco ss products, smokes one pack cigarettes per day. 22:06 21:42 [facility] mw
--- NOTE | 2021-08-06 21:43 | ER ---
Nurse's Notes [facility] Name: Alexandro Reinoso Age: 75 yrs Sex: Male : 1945 Arrival Date: 08/06/2021 Time: 18:03 Bed 14 Private MD: Александр Maciel C Diagnosis: Pneumonia, unspecified organism;Respiratory failure, unspecified with hypoxia;Type 2 diabetes mellitus with hyperglycemia Presentation: 08/06 18:21 Chief complaint: Patient states: painful cough, shortness of breath that began 1 week ss ago. Denies fever. Coronavirus screen: Client denies travel out of the [place] in the last 14 days. Client presents with at least one sign or symptom that may indicate coronavirus-19. Standard/surgical mask placed on the client. Provider contacted for isolation considerations. Ebola Screen: Patient denies exposure to infectious person. Patient denies travel to an Ebola-affected area in the 21 days before illness onset. Initial Sepsis Screen: Does the patient meet any 2 criteria? RR > 20 per min. HR > 90 bpm. Yes Does the patient have a suspected source of infection? Yes: Productive cough/pneumonia. Risk Assessment: Do you want to hurt yourself or someone else? Patient reports no desire to harm self or others. Onset of symptoms was July 30, 2021. 18:21 Method Of Arrival: Wheelchair ss 18:21 Acuity: SAMUEL 2 ss Triage Assessment: 18:43 Respiratory: Reports shortness of breath cough that is pain with cough pain with ss movement. Historical: - Allergies: 18:21 PENICILLINS; ss - PMHx: 18:21 High Cholesterol; CAD; Myocardial infarction; COPD; Hypertension; ss - PSHx: 18:21 heart surgery; ss - Immunization history:: Client reports receiving the 2nd dose of the Covid vaccine. - Social history:: Smoking status: Patient/guardian denies using tobacco, but has a distant history of tobacco abuse. Screenin:42 Abuse screen: Denies threats or abuse. Nutritional screening: No deficits noted. ss Tuberculosis screening: No symptoms or risk factors identified. Fall Risk IV access (20 points). Assessment: 18:39 General: Appears uncomfortable, Behavior is calm, cooperative. Pain: Complains of pain ss in anterior aspect of left upper chest and left breast Pain radiates to left scapular area and left subscapular area Pain currently is 5 out of 10 on a pain scale. Quality of pain is described as sharp, Pain began 2-3 days ago. Is intermittent, Aggravated by increased activity, repositioning, coughing. Cardiovascular: Reports chest pain, Rhythm is sinus rhythm. Respiratory: Airway is patent Trachea midline Respiratory effort is even, labored, Respiratory pattern is symmetrical, Breath sounds with crackles in left lower lobe and left posterior lower lobe. 19:18 Reassessment: Dr. Latham notified of Lactic Acid 5.2 result. al4 19:26 Reassessment: Patient notified of the need for a urine sample. Stated "its going to be al4 awhile.". 19:56 General: Appears in no apparent distress. uncomfortable, Behavior is calm, cooperative. al4 Pain: Complains of pain in left posterior lower lobe Pain currently is 1 out of 10 on a pain scale. Neuro: Level of Consciousness is awake, alert, obeys commands, Oriented to person, place, time, situation. Cardiovascular: Capillary refill < 3 seconds Patient's skin is warm and dry. Respiratory: Airway is patent Respiratory effort is even, labored, Respiratory pattern is symmetrical, patient on O2. Musculoskeletal: Circulation, motion, and sensation intact. 20:00 Reassessment: patients at bedside. al4 20:30 Reassessment: Spoke to MD Latham about patients Venturi mask. RN just wanted to clarify al4 that patient needed to be on the Venturi mask and MD stated "he is going to stay on it.". 21:00 Reassessment: Patient appears in no apparent distress at this time. Patient and/or al4 family updated on plan of care and expected duration. Pain level reassessed. pain is described as a dull ache, but tolerable.. 22:09 Reassessment: Patient appears in no apparent distress at this time. Patient and/or al4 family updated on plan of care and expected duration. Pain level reassessed. 22:38 Reassessment: clarified with lab about lab orders. no outstanding orders at this time. al4 23:04 Reassessment: Patient appears in no apparent distress at this time. Patient and/or al4 family updated on plan of care and expected duration. Pain level reassessed. 23:10 Reassessment: IV dressing changed. IV flushes well, site is clean, blood return al4 present. Patient states no pain with flushing. RN offered to remove IV and start a new one, but patient declined. 23:20 Reassessment: RT is giving patient breathing treatment at this time. al4 23:30 Reassessment: Report given to SALLIE Butler. al4 23:44 Reassessment: Patient appears in no apparent distress at this time. waiting for patient al4 to be seen by registration for new band before transferring upstairs. patient is sitting on edge of bed looking at phone. 08/07 00:00 Reassessment: Patient appears in no apparent distress at this time. Patient is being al4 transferred upstairs with JOHN Hughes. Vital Signs: 08/06 18:21 BP 138 / 73; Pulse 110; Resp 25; Temp 98.1; Pulse Ox 80% on 4 lpm NC; Weight 63.5 kg; ss Height 5 ft. 5 in. (165.10 cm); Pain 5/10; 18:41 BP 140 / 81; Pulse 110; Resp 26; Pulse Ox 93% on Venturi mask; Pain 4/10; ss 19:57 BP 133 / 84; Pulse 99; Resp 17; Pulse Ox 95% on Venturi mask; Pain 1/10; al4 20:30 BP 122 / 79; Pulse 97; Resp 17; Pulse Ox 100% on Venturi mask; al4 21:00 BP 131 / 78; Pulse 99; Resp 17; Pulse Ox 99% on Venturi mask; al4 22:00 BP 149 / 75; Pulse 97; Resp 18 S; Pulse Ox 99% on Venturi mask; al4 23:00 BP 135 / 81; Pulse 95; Resp 19 S; Pulse Ox 99% on Venturi mask; al4 23:15 BP 134 / 64; Pulse 99; Resp 20 S; Pulse Ox 99% on Venturi mask; al4 18:21 Body Mass Index 23.30 (63.50 kg, 165.10 cm) Vitals: 18:41 Cardiac Rhythm Assessment Regular Sinus rhythm. ED Course: 16:35 Initial lab(s) drawn, by ED staff, sent to lab. First set of blood cultures drawn EKG ss done, by ED staff, reviewed by Александр Maciel MD. 18:03 Patient arrived in ED. ds1 18:21 Arm band placed on Patient placed in an exam room, on a stretcher. ss 18:22 Triage completed. ss 18:22 Александр Maciel MD is Private Physician. ss 18:23 Vera Calvert RN is Primary Nurse. ss 18:37 Inserted saline lock: 20 gauge in right antecubital area, using aseptic technique. mb7 Blood collected. 18:43 Bed in low position. Call light in reach. Side rails up X 1. Adult w/ patient. ss 19:04 Reza Latham MD is Attending Physician. mh7 19:39 COVID-19/FLU A+B (Document "Date of Onset" if Symptomatic) Sent. al4 20:19 Primary Nurse role handed off by Vera Calvert, SALLIE cs9 20:31 Willam Kapadia is Primary Nurse. al4 21:02 Chest Single View XRAY In Process Unspecified. EDMS 21:41 Александр Maciel MD is Hospitalizing Provider. mh7 22:38 Lipid Profile Sent. al4 22:38 Lipid Profile Sent. al4 22:38 Lactate Sent. al4 22:38 Lactate Sent. al4 22:38 CKMB Creatine Kinase MB Sent. al4 22:38 CKMB Creatine Kinase MB Sent. al4 22:38 Basic Metabolic Panel Sent. al4 22:38 CBC with Automated Diff Sent. al4 22:38 CBC with Automated Diff Sent. al4 22:38 CKMB Creatine Kinase MB Sent. al4 22:38 Basic Metabolic Panel Sent. al4 23:03 No provider procedures requiring assistance completed. Patient admitted, IV remains in al4 place. Administered Medications: 19:49 Drug: NS 0.9% 500 ml Route: IV; Rate: bolus; Site: right antecubital; al4 20:59 Follow up: IV Status: Completed infusion; IV Intake: 500ml al4 19:55 Drug: LevaQUIN (levofloxacin) 500 mg Volume: 100 ml; Route: IVPB; Infused Over: 60 al4 mins; Site: right antecubital; 22:10 Follow up: IV Status: Completed infusion; IV Intake: 100ml al4 20:31 Drug: Albuterol 2.5 mg Route: Inhalation; al4 20:59 Follow up: Response: No adverse reaction al4 20:31 Drug: AtroVENT (ipratropium) Aerosol 0.5 mg Route: Inhalation; al4 21:00 Follow up: Response: No adverse reaction al4 21:27 Drug: NS 0.9% 500 ml Route: IV; Rate: bolus; Site: right antecubital; al4 22:10 Follow up: IV Status: Completed infusion; IV Intake: 500ml al4 22:09 Drug: SOLU-Medrol (methylPrednisoLONE) 60 mg Route: IVP; Site: right antecubital; al4 23:05 Follow up: Response: No adverse reaction al4 Intake: 20:59 IV: 500ml; Total: 500ml. al4 22:10 IV: 500ml; Total: 1000ml. al4 22:10 IV: 100ml; Total: 1100ml. al4 Outcome: 21:42 Decision to Hospitalize by Provider. [facility] 23:03 Admitted to Med/surg room 221, Report called to logan Butler to take report at this al4 time. 23:03 Condition: stable 23:03 Instructed on the need for admit. 04 00:01 Patient left the ED. al4 Signatures: Dispatcher [facility] Zara Wilburn Shelby, RN RN Reza Gallegos MD MD mh7 Stanford, Christine cs9 Breneman, Mary 7 Willam Kapadia al4 Corrections: (The following items were deleted from the chart) 08/06 18:22 18:21 Immunization history: Client reports receiving the 2nd dose of the Covid vaccine, [facility] 18:22 18:21 Social history: Smoking status: Patient reports the use of cigarette tobacco ss products, smokes one pack cigarettes per day. 22:23 21:00 Reassessment: Patient appears in no apparent distress at this time. Patient al4 and/or family updated on plan of care and expected duration. Pain level reassessed. al4 23:12 23:00 BP 135 / 81; Pulse 95bpm; Resp 19bpm; Spontaneous; Pulse Ox 99% RA; al4 al4 23:15 23:12 Reassessment: Spoke to MD Latham about patients Venturi mask. RN just wanted to al4 clarify that patient needed to be on the Venturi mask and MD stated "he is going to stay on it." al4 23:52 23:10 Reassessment: IV dressing changed. IV flushes well, site is clean, blood return al4 present. Patient states no pain with flushing. al4 08/07 06:48 08/06 22:23 Respiratory: the patient has moderate shortness of breath al4 al4 08/07 06:49 08/06 23:15 BP 134 / 64; Pulse 99bpm; Resp 20bpm; Spontaneous; Pulse Ox 99% RA; al4 al4
[2021-08-06] MEDS ORDERED: ONDANSETRON 4 MG/2 ML VIAL IV PRN (21:45)
[2021-08-06] MEDS ORDERED: ACETAMINOPHEN 325 MG TABLET PO PRN (21:45)
[2021-08-06] MEDS ORDERED: NA CHLORIDE 0.9% 1,000 ML IV SCH (22:00)
[2021-08-06] MEDS ORDERED: METHYLPREDNISOLONE 40 MG INJ ONE (22:03)
[2021-08-06 22:35] LABS: Urine Blood Negative (Negative); Urine Glucose Trace (Negative); Urine Protein Negative (Negative); Urine Specific Gravity 1.015 (1.005-1.030)
[2021-08-06] MEDS ORDERED: ALBUTEROL 2.5 MG/3 ML NEB SOL NEB PRN (23:00)
[2021-08-06] MEDS: IPRATROPIUM BROM 0.5MG/2.5ML NEB SCH (23:20)
[2021-08-07 01:01] VITALS: BMI 24.0
[2021-08-07] MEDS: METHYLPREDNISOLONE 125 MG INJ IV SCH ×3 (03:19→16:48)
[2021-08-07] MEDS: IPRATROPIUM BROM 0.5MG/2.5ML NEB SCH ×7 (03:35→23:20)
[2021-08-07 05:49] LABS: Absolute Lymphocytes (CBC) 0.2 K/uL (0.7-4.9); Hematocrit 36.7 % (39.6-49.0); Lymphocytes % 3.3 % (15.3-44.8); MPV 8.1 fL (7.6-11.3); RBC Red Blood Cell Count 4.09 M/uL (4.33-5.43)
[2021-08-07 06:13] LABS: BUN Blood Urea Nitrogen 14 mg/dL (7-18); Bicarbonate 26 mmol/L (21-32); CKMB Creatine Kinase MB 3.4 ng/mL (1.0-3.6); Glucose Level 282 mg/dL (74-106); HDL Cholesterol 70 mg/dL (40-60); LDL Cholesterol, Calculated 83 mg/dL (<130); Potassium 4.4 mmol/L (3.5-5.1); Sodium Level 138 mmol/L (136-145)
[2021-08-07 07:18] LABS: Blood Morphology Comment NOT SEEN (NOT SEEN); Platelet Estimate ADEQ; White Blood Cell Scan OK (OK)
[2021-08-07] MEDS: INSULIN -REGULAR HUMAN 50 UNIT/0.5 ML ML SQ SCH ×4 (07:30→21:36)
[2021-08-07] MEDS: ALBUTEROL 2.5 MG/3 ML NEB SOL NEB SCH ×6 (08:00→23:20)
[2021-08-07] MEDS ORDERED: PNEUMOCOCCAL VACCINE 0.5 ML IMVAC ONE (08:00)
[2021-08-07] MEDS: THEOPHYLLINE SR 100 MG TAB PO SCH (08:41)
[2021-08-07] MEDS: DILTIAZEM HCL 120 MG SR CAP PO SCH (08:42)
[2021-08-07] MEDS: METFORMIN HCL 500 MG TAB PO SCH ×2 (08:42→16:48)
[2021-08-07] MEDS: SPIRONOLACTONE 25 MG TABLET PO SCH (08:42)
[2021-08-07] MEDS: ASPIRIN EC 81 MG TAB PO SCH (08:42)
[2021-08-07] MEDS: CLOPIDOGREL 75 MG TABLET PO SCH (08:42)
[2021-08-07] MEDS: FAMOTIDINE 20 MG TAB PO SCH (08:42)
[2021-08-07] MEDS: ENOXAPARIN 40 MG/0.4 ML SQ SCH (08:43)
[2021-08-07] MEDS: AZELASTINE NASAL SPRAY 30 ML NAS SCH ×2 (09:27→21:36)
--- NOTE | 2021-08-07 09:37 | EKG ---
Test Date: 2021-08-06 Test Time: 18:25:10 Waterproofer: AZK MEASUREMENT RESULTS: Intervals: Rate: 103 CA: 152 QRSD: 82 QT: 336 QTc: 440 Golva: P: 61 CA: 152 QRS: 35 T: 29 INTERPRETIVE STATEMENTS: Sinus tachycardia Otherwise normal ECG Compared to ECG 06/13/2021 10:53:17 Sinus rhythm no longer present Electronically Signed On 08-07-21 09:35:34 CDT by Lyle Gunderson
[2021-08-07] MEDS: Levofloxacin500mg IV 500 MG/100 ML BAG IV SCH (21:35)
[2021-08-07] MEDS: ATORVASTATIN 80 MG TAB PO SCH (21:36)
[2021-08-08] MEDS: METHYLPREDNISOLONE 125 MG INJ IV SCH ×3 (00:38→16:30)
[2021-08-08] MEDS: ALBUTEROL 2.5 MG/3 ML NEB SOL NEB SCH ×5 (03:10→19:25)
[2021-08-08] MEDS: IPRATROPIUM BROM 0.5MG/2.5ML NEB SCH ×5 (03:10→19:25)
--- NOTE | 2021-08-08 07:09 | HP ---
Date of Admission: 08/06/2021 Chief Complaint: Shortness of breath. History Of Present Illness: Mr. Reinoso is a very pleasant 75-year-old male patient with severe COPD and he is oxygen dependent and steroid dependent. He sees his acid painter in [place] on a regular basis and he is on prednisone 15 mg daily as his maintenance dose and continuous home oxygen. The p olamide came into emergency room with few days history of worsening shortness of breath associated wit h cough, congestion, coughing up some colored mucus from time to time. After he was evaluated in the ER, he was admitted to the hospital with pneumonia and acute exacerbation of COPD. Allergies: TO PENICILLIN. Medications: List reviewed. Review of Systems: Respiratory: As mentioned above. All other systems reviewed and negative. Past Medical History: Significant for impaired fasting glucose, COPD, for which he uses continuous h ome oxygen and chronic steroid therapy, hypertension, hyperlipidemia, coronary artery disease, histor y of myocardial infarction in December 2018, benign prostatic hypertrophy, chronic respiratory failu re with hypoxia. Past Surgical History: Coronary artery stent placement in December 2018, coronary artery bypass indra karthik, 2008. Family History: Father had diabetes and stroke. Mother had COPD and diabetes. Siblings with diabet es. Social History: Prior history of smoking, not at present time. Use of alcohol, negative. Immunization Status: The patient had COVID-19 vaccine on June 28, 2020, July 26, 2020 and March 01, 2021. Physical Examination: VITAL SIGNS: Temperature 97, pulse 88, respiratory rate 18, blood pressure 112/63, oxygen saturation 90% on high-flow oxygen at 10 L/minute, height 5 feet 5 inches, weight 144 pounds. General: Awake, alert, oriented, not in distress. HEENT: Head atraumatic, normocephalic. Conjunctivae nonerythematous. Sclerae white. Mouth, no thr ush or edema noted. Ears/Nose, no mass, lesion, discharge noted. Neck: Supple. No JVD, lymph nodes, bruit, thyromegaly noted. Lungs: Diminished air entry with rales in left lower lung field. The patient not using any accessor y muscles of respiration at rest. Heart: Normal heart sounds, no murmur or gallop. Abdomen: Soft, bowel sounds normal. No guarding, rigidity, tenderness, mass, hepatosplenomegaly, dis tention, or bruit noted. Extremities: No leg edema. No calf tenderness. Skin: No rash, ulcer, cellulitis. Lymphatics: No lymph node enlargement in neck, supraclavicular, infraclavicular region. Neuro: No focal neurological deficit. Chest: Unremarkable. External Genitalia: Deferred. Rectal: Deferred. Laboratory Data: Chest x-ray shows left mid lung infiltrate; white count 17.6, hemoglobin 13.8, plat elets 305. Sodium 136, potassium 4.2, chloride 97, bicarb 23, BUN 16, creatinine 1.11, glucose 272. Liver function tests unremarkable. Lactic acid elevated at 5.2. Procalcitonin elevated at 0.10. B lood gas; pH 7.41, pCO2 36.1, PO2 66.7, oxygen saturation 91.7% on 40% FiO2. Urinalysis negative. S rosibel acetone negative. Influenza A and B and COVID-19 test negative. Today, white count 7, hemoglob in 12.5, platelets 228. Sodium 138, potassium 4.4, chloride 103, bicarb 26, BUN 14, creatinine 0.78, glucose 282. Impression: 1.Pneumonia. 2.Acute exacerbation of chronic obstructive pulmonary disease. 3.Acute on chronic respiratory failure with hypoxia. 4.Coronary artery disease. 5.Hypertension. 6.Hyperlipidemia. 7.Benign prostatic hypertrophy. 8.Impaired fasting glucose. Plan: Admit patient to hospital for further evaluation and management of this problem. The patient is appropriate for inpatient and is expected to spend 2 midnights in the hospital. We will go ahead and continue home medications per order. DVT prophylaxis will be given using Lovenox. We will go ah ead and give IV steroids, IV antibiotics per order. We will consult Physical therapy. Continue oxyg en and we will give nebulizer treatment every 4 hours on a scheduled basis to start with. Continue o xygen replacement therapy. Details and plan of treatment discussed with the patient. I will see him tomorrow for followup. BEATRIZ/MODL Voice ID: [id number]
[2021-08-08] MEDS ORDERED: ALBUTEROL 2.5 MG/3 ML NEB SOL ONE (08:00)
[2021-08-08] MEDS ORDERED: IPRATROPIUM BROM 0.5MG/2.5ML ONE (08:00)
[2021-08-08] MEDS: ASPIRIN EC 81 MG TAB PO SCH (08:59)
[2021-08-08] MEDS: FAMOTIDINE 20 MG TAB PO SCH (08:59)
[2021-08-08] MEDS: THEOPHYLLINE SR 100 MG TAB PO SCH (08:59)
[2021-08-08] MEDS: DILTIAZEM HCL 120 MG SR CAP PO SCH (08:59)
[2021-08-08] MEDS: METFORMIN HCL 500 MG TAB PO SCH ×2 (09:00→16:30)
[2021-08-08] MEDS: SPIRONOLACTONE 25 MG TABLET PO SCH (09:00)
[2021-08-08] MEDS: AZELASTINE NASAL SPRAY 30 ML NAS SCH ×2 (09:00→20:49)
[2021-08-08] MEDS: ENOXAPARIN 40 MG/0.4 ML SQ SCH (09:00)
[2021-08-08] MEDS: CLOPIDOGREL 75 MG TABLET PO SCH (09:00)
[2021-08-08] MEDS: INSULIN -REGULAR HUMAN 50 UNIT/0.5 ML ML SQ SCH ×4 (09:01→20:52)
[2021-08-08] MEDS: Levofloxacin500mg IV 500 MG/100 ML BAG IV SCH (20:49)
[2021-08-08] MEDS: ATORVASTATIN 80 MG TAB PO SCH (20:49)
[2021-08-09] MEDS: METHYLPREDNISOLONE 125 MG INJ IV SCH ×3 (00:49→16:20)
[2021-08-09] MEDS: IPRATROPIUM BROM 0.5MG/2.5ML NEB SCH ×4 (01:25→20:15)
[2021-08-09] MEDS: ALBUTEROL 2.5 MG/3 ML NEB SOL NEB SCH ×6 (01:25→20:15)
[2021-08-09] MEDS: INSULIN -REGULAR HUMAN 50 UNIT/0.5 ML ML SQ SCH ×4 (08:34→21:12)
[2021-08-09] MEDS: ENOXAPARIN 40 MG/0.4 ML SQ SCH (08:35)
[2021-08-09] MEDS: AZELASTINE NASAL SPRAY 30 ML NAS SCH (08:36)
[2021-08-09] MEDS: ASPIRIN EC 81 MG TAB PO SCH (08:37)
[2021-08-09] MEDS: SPIRONOLACTONE 25 MG TABLET PO SCH (08:37)
[2021-08-09] MEDS: CLOPIDOGREL 75 MG TABLET PO SCH (08:38)
[2021-08-09] MEDS: FAMOTIDINE 20 MG TAB PO SCH (08:38)
[2021-08-09] MEDS: METFORMIN HCL 500 MG TAB PO SCH ×2 (08:38→16:20)
[2021-08-09] MEDS: DILTIAZEM HCL 120 MG SR CAP PO SCH (08:39)
[2021-08-09] MEDS: THEOPHYLLINE SR 100 MG TAB PO SCH (08:40)
--- NOTE | 2021-08-09 09:09 | PN ---
Date of Progress Note: 08/08/2021 Subjective: The patient was seen this morning for followup. He was on nasal cannula oxygen instead of high-flow oxygen and overall he feels little better today than yesterday morning. Objective: Vital Signs: Reviewed. HEENT: Unremarkable. Lungs: Clear to auscultation. No rales. No wheezing, except left basal rales present. Not in any respiratory distress. Heart: Sounds normal. Abdomen: Soft. Bowel sounds normal. No guarding, rigidity, tenderness, distention. Extremities: No leg edema. Impression: 1.Pneumonia. 2.Acute exacerbation of chronic obstructive pulmonary disease. 3.Chronic respiratory failure with hypoxia, with acute exacerbation. Plan: We will go ahead and continue current medications. Continue steroid, antibiotics, oxygen repl acement, and other current medical management, and I will see him tomorrow for followup. Possible di scharge to go home in next 2 days or so and details were discussed with the patient. BEATRIZ/MODL Voice ID: [id number] Report ID: [id number]
--- NOTE | 2021-08-09 10:39 | RAD REPORT ---
EXAM DESCRIPTION: RADRustamt Pa And Lat (2 Views)08/09/2021 9:27 am CLINICAL HISTORY: Pneumonia COMPARISON: August 06, 2021 FINDINGS: Partial resolution in the bilateral pulmonary opacities. Postsurgical changes involve the chest. Heart is mildly enlarged IMPRESSION: Partial resolution in bilateral pulmonary opacities likely improving pneumonia. Marked residual bilateral pulmonary opacities. I suspect the majority of this represents pulmonary fi brosis
[2021-08-09] MEDS: ATORVASTATIN 80 MG TAB PO SCH (21:11)
[2021-08-09] MEDS: Levofloxacin500mg IV 500 MG/100 ML BAG IV SCH (21:11)
--- NOTE | 2021-08-09 22:45 | PN ---
Date of Progress Note: 08/09/2021 Subjective: Patient was seen this morning for followup. No new complaints or problems reported by t he patient. Overall, he feels better. He is on oxygen around 7 or 8 L nasal cannula. Yesterday, he was on 40 L/minute nasal cannula oxygen. Objective: Vital Signs: Reviewed. HEENT: Unremarkable. Lungs: Bilateral good, equal air entry. Clear to auscultation. Not in any respiratory distress. N o wheezing. No rales. Diminished air entry in the left lung base. Heart: Heart sounds normal. Abdomen: Soft. Bowel sounds normal. No guarding, rigidity, tenderness, or distention. Extremities: No leg edema. Laboratory Data: Blood culture shows gram-positive cocci. Impression: 1.Pneumonia. 2.Acute exacerbation of chronic obstructive pulmonary disease. 3.Chronic respiratory failure, with hypoxia, with acute exacerbation. 4.Coronary artery disease. 5.Hypertension. Plan: We will continue current empiric antibiotic, steroid, oxygen nebulizer treatment and other cur rent medical management. I will see him tomorrow for followup, possible discharge to go home tomorro w depending on his condition. At home, he uses oxygen per nasal cannula 4-5 L per minute and hopefully by tomorrow we should be able to get him back to his baseline oxygen u se. BEATRIZ/MODL Voice ID: [id number] Report ID: [id number]
[2021-08-10] MEDS: IPRATROPIUM BROM 0.5MG/2.5ML NEB SCH ×4 (01:30→19:30)
[2021-08-10] MEDS: ALBUTEROL 2.5 MG/3 ML NEB SOL NEB SCH ×6 (01:30→19:30)
[2021-08-10] MEDS: AZELASTINE NASAL SPRAY 30 ML NAS SCH ×3 (01:35→20:08)
[2021-08-10] MEDS: METHYLPREDNISOLONE 125 MG INJ IV SCH ×3 (01:37→17:34)
[2021-08-10] MEDS: INSULIN -REGULAR HUMAN 50 UNIT/0.5 ML ML SQ SCH ×4 (08:00→20:07)
[2021-08-10] MEDS: THEOPHYLLINE SR 100 MG TAB PO SCH (09:00)
[2021-08-10] MEDS: METFORMIN HCL 500 MG TAB PO SCH ×2 (09:00→17:34)
[2021-08-10] MEDS: DULERA 200/5 (MOMETASONE/FORMOTEROL) INHALER IH SCH ×2 (09:00→20:07)
[2021-08-10] MEDS: FAMOTIDINE 20 MG TAB PO SCH (09:06)
[2021-08-10] MEDS: ASPIRIN EC 81 MG TAB PO SCH (09:06)
[2021-08-10] MEDS: SPIRONOLACTONE 25 MG TABLET PO SCH (09:06)
[2021-08-10] MEDS: CLOPIDOGREL 75 MG TABLET PO SCH (09:06)
[2021-08-10] MEDS: DILTIAZEM HCL 120 MG SR CAP PO SCH (09:08)
[2021-08-10] MEDS: ENOXAPARIN 40 MG/0.4 ML SQ SCH (09:08)
[2021-08-10] MEDS: ATORVASTATIN 80 MG TAB PO SCH (20:08)
[2021-08-10] MEDS: Levofloxacin500mg IV 500 MG/100 ML BAG IV SCH (20:08)
--- NOTE | 2021-08-11 00:54 | PN ---
Date of Progress Note: 08/10/2021 Subjective: The patient was seen this morning for followup. No new complaints or problems reported by the patient lying in bed, not in distress. He is on oxygen per nasal cannula at 10 L/minute which is little more today than yesterday. Yesterday, he was on 7 or 8 L/minute. Objective: HEENT: Unremarkable. Lungs: Clear to auscultation. No wheezing. No rales. Heart: Heart sounds normal. Abdomen: Soft. Bowel sounds normal. No guarding, rigidity, tenderness, or distention. Extremities: No leg edema. Impression: 1.Acute exacerbation of chronic obstructive pulmonary disease. 2.Pneumonia. 3.Chronic respiratory failure with hypoxia, with acute exacerbation. 4.Hypertension. Plan: Continue current medication. Continue current steroid, antibiotic therapy. We will go ahead and add Dulera inhaler 2 puffs 2 times a day. Continue current DVT prophylaxis. Once we get his oxy gen replacement down to 5 L/minute, then we will be able to discharge him to go home. BEATRIZ/MODL Voice ID: [id number] Report ID: [id number]
[2021-08-11] MEDS: ALBUTEROL 2.5 MG/3 ML NEB SOL NEB SCH ×3 (01:10→08:03)
[2021-08-11] MEDS: IPRATROPIUM BROM 0.5MG/2.5ML NEB SCH ×2 (01:10→08:03)
[2021-08-11] MEDS: METHYLPREDNISOLONE 125 MG INJ IV SCH ×2 (01:33→09:00)
[2021-08-11] MEDS: INSULIN -REGULAR HUMAN 50 UNIT/0.5 ML ML SQ SCH (07:30)
[2021-08-11] MEDS: METFORMIN HCL 500 MG TAB PO SCH (08:00)
[2021-08-11 08:33] VITALS: O2SAT 95
[2021-08-11] MEDS: FAMOTIDINE 20 MG TAB PO SCH (09:00)
[2021-08-11] MEDS: SPIRONOLACTONE 25 MG TABLET PO SCH (09:00)
[2021-08-11] MEDS: DILTIAZEM HCL 120 MG SR CAP PO SCH (09:00)
[2021-08-11] MEDS: DULERA 200/5 (MOMETASONE/FORMOTEROL) INHALER IH SCH (09:00)
[2021-08-11] MEDS: ASPIRIN EC 81 MG TAB PO SCH (09:00)
[2021-08-11] MEDS: AZELASTINE NASAL SPRAY 30 ML NAS SCH (09:00)
[2021-08-11] MEDS: THEOPHYLLINE SR 100 MG TAB PO SCH (09:00)
[2021-08-11] MEDS: CLOPIDOGREL 75 MG TABLET PO SCH (09:00)
[2021-08-11] MEDS: ENOXAPARIN 40 MG/0.4 ML SQ SCH (09:00)
[2021-08-11 09:35] VITALS: BP 135/63; TEMP 97.1
--- NOTE | 2021-08-12 07:12 | DS ---
Date of Discharge: 08/11/2021 Disposition: Discharged to go home. Physical Examination: HEENT: Unremarkable. Lungs: Clear to auscultation. No wheezing, no rales, not in respiratory distress. Heart: Heart sounds normal. Abdomen: Soft, bowel sounds normal. No guarding, rigidity, tenderness, distention. Extremities: No leg edema. Laboratory Data: Upon admission; white count 17.6, hemoglobin 13.8, platelets 305. Next day, white count 7, hemoglobin 12.5, and platelets 228. Upon admission, sodium 136, potassium 4.2, chloride 97, bicarb 23, BUN 16, creatinine 1.11, glucose 272. Lactic acid 5.2. Procalcitonin 0.10. Liver funct ion tests unremarkable. Next day, sodium 138 potassium 4.4, chloride 103, bicarb 26, BUN 14, creatin ine 0.78, glucose 282. LDL cholesterol 83, HDL 70, triglyceride 86, total cholesterol 170. Hospital Course: Mr. Reinoso is a 75-year-old very pleasant male patient, admitted to the hospital [facility] complaints of cough, congestion, shortness of breath. Please see dictated H and P for more inform ation. The patient was evaluated in the emergency room after he was evaluated. He was admitted to [facility] with pneumonia, acute exacerbation of COPD. He is on continuous daily doses of oral predniso ne for his severe COPD and also uses home oxygen all the time at about 5 L/minute. He usually uses p rednisone 10 mg daily, but about 2 weeks or so before he was admitted to the hospital he increased th e dose to 15 mg daily as per his discussion with his front desk associate because of increasing cough, conge stion, and shortness of breath problem, but that did not help, so he came into emergency room and he was admitted to the hospital. He was admitted with pneumonia problem. COVID-19 test was negative. Chest x-ray showed left mid lung infiltrate and repeat chest x-ray showed improvement in that. He torres s significant scarring in his lung valladares, which remains unchanged. Initially, he was on high-flow o xygen. Subsequently, we were able to maintain his adequate oxygenation with nasal cannula oxygen, bu t he was on as high as 14 L/minute and subsequently on a day-to-day basis we were able to reduce his oxygen use and as of yesterday afternoon, he is on 5 L nasal cannula oxygen. He always coughs up lc e greenish-colored mucus, which is almost back to his baseline now. His breathing has improved and t aileen he feels like he is almost back to his baseline and feels comfortable going home. Medically, he is stable for discharge. Final Diagnoses: 1.Pneumonia. 2.Acute exacerbation of chronic obstructive pulmonary disease. 3.Chronic respiratory failure, with hypoxia, with acute exacerbation. 4.Coronary artery disease. 5.Hypertension. 6.Hyperlipidemia. 7.Benign prostatic hypertrophy. 8.Impaired fasting glucose. Discharge Medications And Instructions: 1.Continue all prior home medications. 2.Levaquin 500 mg daily for 1 week. 3.Prednisone 10 mg take 2 tablets by mouth 2 times a day for 4 days, then 3 tablets by mouth daily f or 4 days, then 2 tablets by mouth daily for 4 days, then 1 tablet daily to continue. 4.Follow up with my office next week on Saturday or and call office for appointment. BEATRIZ/SYDNIEL Voice ID: [id number] Report ID: [id number]
== END 2021-08-11 12:00 | disposition home or self-care (01) | DRG 193 ==
LOC: ER 18:02 → ERHOLD 21:44 → 2ND 23:48
PROVIDERS: ADMIT Internal Medicine; ATTEND Internal Medicine
PROC: 5A09357 Assistance with Respiratory Ventilation, Less than 24 Consecutive Hours, Continuous Positive Airway Pressure (ICD-10-PCS; principal; 2021-08-06)
DX: J18.9 Pneumonia, unspecified organism (principal); J96.21 Acute and chronic respiratory failure with hypoxia; J44.1 Chronic obstructive pulmonary disease with (acute) exacerbation; J44.0 Chronic obstructive pulmonary disease with (acute) lower respiratory infection; I10 Essential (primary) hypertension; R73.01 Impaired fasting glucose; I25.10 Atherosclerotic heart disease of native coronary artery without angina pectoris; E78.5 Hyperlipidemia, unspecified; N40.0 Benign prostatic hyperplasia without lower urinary tract symptoms; Z20.822 Contact with and (suspected) exposure to COVID-19; I25.2 Old myocardial infarction; Z99.81 Dependence on supplemental oxygen; Z79.52 Long term (current) use of systemic steroids; Z88.0 Allergy status to penicillin; Z87.891 Personal history of nicotine dependence; Z95.5 Presence of coronary angioplasty implant and graft; Z95.1 Presence of aortocoronary bypass graft; Z83.3 Family history of diabetes mellitus; Z82.3 Family history of stroke; Z83.6 Family history of other diseases of the respiratory system
CPT/HCPCS: 0240U; 36415; 71045; 71046; 80048; 80053; 80061; 81003; 82010; 82553; 82805; 82947; 83605; 83880; 84145; 84484; 85025; 85610; 85730; 87040; 87077; 87186; 87205; 93005; 94002; 94003; 94640; 94760; 96365; 96366; 96375; 99285; J1650; J1815; J2920; J2930; J3535; J7030

== ENCOUNTER 2021-09-01 13:55 | Emergency (ER) | payer OTHER, BC ==
--- OUTSIDE RECORDS SUMMARY | 2021-09-01 13:59 | XMS REPORT | Continuity of Care Document ---
:1945 Author Organization [facility] t Address [address] [place] [address] Care Team Providers Name Role Phone Tavon Maciel Primary Care Physician Doctor Unassigned, Name Attending Clinician Unavailable Brad MARTINEZ Attending Clinician BRAD Attending Clinician Unavailable BRAD Attending Clinician Unavailable IAN KEYES Attending Clinician Unavailable IAN KEYES Admitting Clinician Unavailable Payers Payer Name Policy Type Policy Number Effective Date Expiration Date S ource Problems Condition Condition Condition Status Onset Resolution Last Treating Co mments Source Name Details Category Date Date Treatment Clinician Date No known No known Disease NPI:1 83 active active [id number] problems problems Allergies, Adverse Reactions, Alerts Allergy Allergy Status Severity Reaction(s) Onset Inactive Treating Comm ents Source Name Type Date Date Clinician Penicill Propensi Active Unknown - NPI :183 ins ty to See comments 01-12 3791 [id number] adverse 00:00: reaction 00 s Penicill Propensi Active Unknown - NPI :183 ins ty to See comments 01-12 7748 171 adverse 00:00: reaction 00 s PENICILL Drug Active 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 I:183 INS Class 9-16 [id number] 00:00: 00 PENICILL Allergy Active NPI:118 INS 9- [id number] 00:00: 00 Social History Social Habit Start Date Stop Date Quantity Comments Source History of tobacco Cigarette Smoker use History SDOH NPI:[id number] Alcohol Frequency History SDOH NPI:[id number] 81 Alcohol Std Drinks History SDOH NPI:[id number] 81 Alcohol Binge Exposure to 2021-06-27 2021-07-27 Not sure NPI:[id number] 1 SARS-CoV-2 (event) 00:00:00 14:54:00 Alcohol intake 2021-07-27 2021-07-27 Ex-drinker NPI:[id number] 00:00:00 00:00:00 (finding) Alcohol Comment 2021-03-31 2021-03-31 6 pack/day; NPI:1831 [id number] 00:00:00 00:00:00 stopped 26 yrs ago Tobacco use and 2021-01-12 2021-01-12 Never used NPI:[id number] exposure 00:00:00 00:00:00 Cigarettes smoked 2021-01-12 2021-01-12 NPI:544 [id number] current (pack per 00:00:00 00:00:00 day) - Reported Cigarette 2021-01-12 2021-01-12 pack-years 00:00:00 00:00:00 Sex [birth year] NPI:[id number] 00:00:00 00:00:00 Smoking Status Start Date Stop Date Source Former smoker 2021-01-12 00:00:00 2021-01-12 00:00:00 NPI:1831 [id number] Medications Ordered Filled Start Stop Current Ordering Indication Dosage Frequency Signature Comments Components Source Medication Medication Date Date Medication? Clinician (SIG) Name Name budesonide 2021- Yes [id number] 1mg Use 2 mL NPI:183 1 mg/2 mL 08-08 as [id number] nebulizer 00:00: 04:59 directed 2 solution 00 :00 (two) times daily for 90 days. budesonide 2021-0 2022- Yes [id number] 1mg Use 2 mL NPI:183 1 mg/2 mL 08-08-12 as [id number] nebulizer 00:00: 04:59 directed 2 solution 00 :00 (two) times daily for 90 days. diltiazem 2021-0 Yes 240mg Take 240 NPI :183 XR 240 mg 3-31 mg by [id number] 24 hr 15:08: mouth 2 capsule 51 (two) times daily. atorvastati 2021-0 Yes 80mg Take 80 mg NPI:183 n 80 mg 3-31 by mouth [id number] tablet 15:08: at 51 bedtime. clopidogreL 2021-0 Yes 75mg Take 75 mg NPI:183 75 mg 3-31 by mouth [id number] tablet 15:08: daily. 51 nitroglycer 2021-[address] 0.4 N PI:183 in 0.4 mg 3-31 mg under [id number] 1 sublingual 15:08: the tongue tablet 51 every 5 (five) minutes as needed for Chest pain. aspirin 81 2021-0 Yes 81mg Take 81 mg N PI:183 mg chewable 3-31 by mouth 1318 781 tablet 15:08: daily. 51 predniSONE 2021-0 Yes 15mg Take 15 mg N PI:183 10 mg 3-31 by mouth [id number] tablet 15:08: daily. 51 occasional ly takes 5mg at PM metFORMIN 2021-0 Yes 500mg Take 500 NPI :183 500 mg 3-31 mg by [id number] tablet 15:08: mouth 2 51 (two) times daily with meals. spironolact 0 Yes 25mg Take 25 mg NPI:183 one 25 mg 3-31 by mouth [id number] 1 tablet 15:08: daily. 51 SITagliptin 2021-0 Yes 100mg Take 100 N PI:183 100 mg 3-31 mg by [id number] tablet 15:08: mouth 51 daily. revefenacin 2021-0 Yes Inhale NPI: 183 (YUPELRI) 3-31 daily. [id number] 175 mcg/3 15:08: mL Nebu 51 Formoterol 2021-0 Yes Inhale 2 NPI :183 Fumarate 3-31 (two) [id number] (PERFOROMIS 15:08: times T) 20 mcg/2 51 daily. mL Nebu famotidine 2021-0 Yes 20mg Take 20 mg N PI:183 (PEPCID) 20 3-31 by mouth 2 13 48938 mg tablet 15:08: (two) 51 times daily. Indication s: stopped Famotidine diltiazem 2021-0 Yes 240mg Take 240 NPI :183 XR 240 mg 3-31 mg by [id number] 24 hr 15:08: mouth 2 capsule 51 (two) times daily. atorvastati 2021-0 Yes 80mg Take 80 mg NPI:183 n 80 mg 3-31 by mouth [id number] tablet 15:08: at 51 bedtime. clopidogreL 2022-0 Yes 75mg Take 75 mg NPI:183 75 mg 3-31 by mouth [id number] tablet 15:08: daily. 51 nitroglycer 2021-[address] 0.4 N PI:183 in 0.4 mg 3-31 mg under [id number] 1 sublingual 15:08: the tongue tablet 51 every 5 (five) minutes as needed for Chest pain. aspirin 81 2021-0 Yes 81mg Take 81 mg N PI:183 mg chewable 3-31 by mouth 1318 781 tablet 15:08: daily. 51 predniSONE 2-0 Yes 15mg Take 15 mg N PI:183 10 mg 3-31 by mouth [id number] tablet 15:08: daily. 51 occasional ly takes 5mg at PM metFORMIN 2-0 Yes 500mg Take 500 NPI :183 500 mg 3-31 mg by [id number] tablet 15:08: mouth 2 51 (two) times daily with meals. spironolact 2021-0 Yes 25mg Take 25 mg NPI:183 one 25 mg 3-31 by mouth [id number] 1 tablet 15:08: daily. 51 SITagliptin 2-0 Yes 100mg Take 100 N PI:183 100 mg 3-31 mg by [id number] tablet 15:08: mouth 51 daily. revefenacin 2-0 Yes Inhale NPI: 183 (YUPELRI) 3-31 daily. [id number] 175 mcg/3 15:08: mL Nebu 51 Formoterol 2-0 Yes Inhale 2 NPI :183 Fumarate 3-31 (two) [id number] (PERFOROMIS 15:08: times T) 20 mcg/2 51 daily. mL Nebu famotidine 2021-0 Yes 20mg Take 20 mg N PI:183 (PEPCID) 20 3-31 by mouth 2 13 56621 mg tablet 15:08: (two) 51 times daily. Indication s: stopped Famotidine diltiazem 2021-0 Yes 240mg Take 240 NPI :183 XR 240 mg 3-31 mg by [id number] 24 hr 15:08: mouth 2 capsule 51 (two) times daily. atorvastati 2021-0 Yes 80mg Take 80 mg NPI:183 n 80 mg 3-31 by mouth [id number] tablet 15:08: at 51 bedtime. clopidogreL 2021-0 Yes 75mg Take 75 mg NPI:183 75 mg 3-31 by mouth [id number] tablet 15:08: daily. 51 nitroglycer 2021-[address] 0.4 N PI:183 in 0.4 mg 3-31 mg under 785004 1 sublingual 15:08: the tongue tablet 51 every 5 (five) minutes as needed for Chest pain. aspirin 81 2021-0 Yes 81mg Take 81 mg N PI:183 mg chewable 3-31 by mouth 1318 781 tablet 15:08: daily. 51 predniSONE 2021-0 Yes 15mg Take 15 mg N PI:183 10 mg 3-31 by mouth [id number] tablet 15:08: daily. 51 occasional ly takes 5mg at PM metFORMIN 2021-0 Yes 500mg Take 500 NPI :183 500 mg 3-31 mg by [id number] tablet 15:08: mouth 2 51 (two) times daily with meals. spironolact 2021-0 Yes 25mg Take 25 mg NPI:183 one 25 mg 3-31 by mouth 921077 1 tablet 15:08: daily. 51 SITagliptin 2-0 Yes 100mg Take 100 N PI:183 100 mg 3-31 mg by [id number] tablet 15:08: mouth 51 daily. revefenacin 2-0 Yes Inhale NPI: 183 (YUPELRI) 3-31 daily. [id number] 175 mcg/3 15:08: mL Nebu 51 Formoterol 2-0 Yes Inhale 2 NPI :183 Fumarate 3-31 (two) 9483635 (PERFOROMIS 15:08: times T) 20 mcg/2 51 daily. mL Nebu famotidine 2021-0 Yes 20mg Take 20 mg N PI:183 (PEPCID) 20 3-31 by mouth 2 13 74026 mg tablet 15:08: (two) 51 times daily. Indication s: stopped Famotidine diltiazem 2021-0 Yes 240mg Take 240 NPI :183 XR 240 mg 3-31 mg by [id number] 24 hr 15:08: mouth 2 capsule 51 (two) times daily. atorvastati 2021-0 Yes 80mg Take 80 mg NPI:183 n 80 mg 3-31 by mouth [id number] tablet 15:08: at 51 bedtime. clopidogreL 2021-0 Yes 75mg Take 75 mg NPI:183 75 mg 3-31 by mouth [id number] tablet 15:08: daily. 51 nitroglycer 2021-[address] 0.4 N PI:183 in 0.4 mg 3-31 mg under 034675 1 sublingual 15:08: the tongue tablet 51 every 5 (five) minutes as needed for Chest pain. aspirin 81 2021-0 Yes 81mg Take 81 mg N PI:183 mg chewable 3-31 by mouth 1318 781 tablet 15:08: daily. 51 predniSONE 2021-0 Yes 15mg Take 15 mg N PI:183 10 mg 3-31 by mouth [id number] tablet 15:08: daily. 51 occasional ly takes 5mg at PM metFORMIN 2021-0 Yes 500mg Take 500 NPI :183 500 mg 3-31 mg by [id number] tablet 15:08: mouth 2 51 (two) times daily with meals. spironolact 2021-0 Yes 25mg Take 25 mg NPI:183 one 25 mg 3-31 by mouth 522290 1 tablet 15:08: daily. 51 SITagliptin 2021-0 Yes 100mg Take 100 N PI:183 100 mg 3-31 mg by [id number] tablet 15:08: mouth 51 daily. revefenacin 2021-0 Yes Inhale NPI: 183 (YUPELRI) 3-31 daily. [id number] 175 mcg/3 15:08: mL Nebu 51 Formoterol 2021-0 Yes Inhale 2 NPI :183 Fumarate 3-31 (two) [id number] (PERFOROMIS 15:08: times T) 20 mcg/2 51 daily. mL Nebu famotidine Yes 20mg Take 20 mg N PI:183 (PEPCID) 20 3-31 by mouth 2 13 06999 mg tablet 15:08: (two) 51 times daily. Indication s: stopped Famotidine budesonide 2021- Yes [id number] 1mg Inhale 4 NPI:183 0.5 mg/2 mL 3-31 05-01 mL 2 (two) 1 941059 nebulizer 00:00: 04:59 times solution 00 :00 daily for 30 days. budesonide 2021- Yes [id number] 1mg Inhale 4 NPI:183 0.5 mg/2 mL 3-31 05-01 mL 2 (two) 1 723227 nebulizer 00:00: 04:59 times solution 00 :00 daily for 30 days. budesonide 2021- No [id number] 1mg Inhale 4 NPI:183 0.5 mg/2 mL 3-31 04-12 mL 2 (two) 1 615516 nebulizer 00:00: 00:00 times solution 00 :00 daily for 30 days. BUDESONIDE 2021- No [id number] INHALE ONE NPI:183 0.5 mg/2 mL 3-21 03-31 (1) AMPULE 1 145503 nebulizer 00:00: 00:00 BY MOUTH solution 00 :00 VIA NEBULIZER 2 TIMES DAILY. theophyllin 2020-04 Yes 200mg Take 1 NPI :183 e 200 mg 24 2-15 capsule by 13 90042 hr capsule 00:00: mouth 00 daily. theophyllin 2020-04 Yes 200mg Take 1 NPI :183 e 200 mg 24 2-15 capsule by 13 32675 hr capsule 00:00: mouth 00 daily. theophyllin 2020-04 Yes 200mg Take 1 NPI :183 e 200 mg 24 2-15 capsule by 13 38723 hr capsule 00:00: mouth 00 daily. theophyllin 2020-04 Yes 200mg Take 1 NPI :183 e 200 mg 24 2-15 capsule by 13 74347 hr capsule 00:00: mouth 00 daily. albuterol 2020-04 Yes 2{puff} Inhale 2 N PI:183 (VENTOLIN 2-03 Puffs 4 7611121 HFA) 90 10:12: (four) mcg/actuati 08 times on inhaler daily. famotidine 2020-04 Yes 20mg Take 20 mg N PI:183 20 mg 2-03 by mouth [id number] tablet 10:12: daily. 08 montelukast 2020-04 Yes 10mg Take 10 mg NPI:183 10 mg 2-03 by mouth 5597581 tablet 10:12: daily. 08 albuterol 2020-04 Yes 2{puff} Inhale 2 N PI:183 (VENTOLIN 2-03 Puffs 4 1975766 HFA) 90 10:12: (four) mcg/actuati 08 times on inhaler daily. famotidine 2020-04 Yes 20mg Take 20 mg N PI:183 20 mg 2-03 by mouth [id number] tablet 10:12: daily. 08 montelukast 2020-04 Yes 10mg Take 10 mg NPI:183 10 mg 2-03 by mouth [id number] tablet 10:12: daily. 08 albuterol 2020-04 Yes 2{puff} Inhale 2 N PI:183 (VENTOLIN 2-03 Puffs 4 6384495 HFA) 90 10:12: (four) mcg/actuati 08 times on inhaler daily. famotidine 2020-04 Yes 20mg Take 20 mg N PI:183 20 mg 2-03 by mouth [id number] tablet 10:12: daily. 08 montelukast 2020-04 Yes 10mg Take 10 mg NPI:183 10 mg 2-03 by mouth 1300182 tablet 10:12: daily. 08 albuterol 2020-04 Yes 2{puff} Inhale 2 N PI:183 (VENTOLIN 2-03 Puffs 4 9767490 HFA) 90 10:12: (four) mcg/actuati 08 times on inhaler daily. famotidine 2020-04 Yes 20mg Take 20 mg N PI:183 20 mg 2-03 by mouth [id number] tablet 10:12: daily. 08 montelukast 2020-04 Yes 10mg Take 10 mg NPI:183 10 mg 2-03 by mouth 1532115 tablet 10:12: daily. 08 azithromyci 2020-04 Yes 250mg Take 1 NPI :183 n 250 mg 0-01 tablet by 164449 1 tablet 00:00: mouth 00 every Saturday, Saturday and Saturday. azithromyci 2020-04 Yes 250mg Take 1 NPI :183 n 250 mg 0-01 tablet by [id number] 1 tablet 00:00: mouth 00 every Saturday, Saturday and Saturday. azithromyci 2020-04 Yes 250mg Take 1 NPI :183 n 250 mg 0-01 tablet by 854721 1 tablet 00:00: mouth 00 every Saturday, Saturday and Saturday. azithromyci 2020-04 Yes 250mg Take 1 NPI :183 n 250 mg 0-01 tablet by [id number] 1 tablet 00:00: mouth 00 every Saturday, Saturday and Saturday. Vital Signs Vital Name Observation Time Observation Value Comments Source Oxygen saturation 2021-07-27 20:20:00 90 /min after 5-6min of NPI:[id number] in Arterial blood deep breaths on 1 by Pulse oximetry 4L Systolic blood 2021-07-27 20:19:00 123 mm[Hg] NPI:18 [id number] pressure 1 Diastolic blood 2021-07-27 20:19:00 65 mm[Hg] NPI:1 [id number] pressure 1 Heart rate 2021-07-27 20:19:00 109 /min NPI:1831 44749 1 Respiratory rate 2021-07-27 20:16:00 23 /min NPI: [id number] 1 Body height 2021-07-27 20:16:00 165.1 cm NPI:1831 47783 1 Body weight 2021-07-27 20:16:00 63.504 kg NPI:183 89011 1 BMI 2021-07-27 20:16:00 23.30 kg/m2 NPI:1831 34431 1 Procedures Procedure Date / Time Performed Performing Clinician Formerly [facility] e DME/SUPPLY JUSTIFICATION 2021-08-18 05:01:00 Doctor Unassigned, No Name DME/SUPPLY JUSTIFICATION 2021-07-27 05:01:00 Doctor Unassigned, No Name Encounters Start End Encounter Admission Attending Care Care Encounter Source Date/Time Date/Time Type Type Clinicians Facility Department ID 2021-08-18 2021-08-18 Mckay CARDOSO [id number] NPI:183 00:00:00 00:00:00 Only Unassigned, ANDRA [id number] [place] [id number] 2021-08-04 2021-08-04 Telephone [facility] [id number] NPI:183 00:00:00 00:00:00 Bruno HAYES [id number] 1 [id number] [place] [id number] PROFESSIO [id number] NAL 085 [facility] 2021-07-27 2021-07-27 Office [facility] [id number] NPI:183 15:00:00 15:30:00 Visit Bruno HAYES [id number] [id number] [facility] [id number] PROFESSIO [phone] NAL 085 [facility] 2021-07-27 2021-07-27 Outpatient R NOAH SALINASKiya [facility] 10 [id number] NPI:183 15:00:00 15:00:00 BRUNO SALINAS 3 [id number] 2021-07-27 Orders Doctor JANAE [id number] NPI:183 00:00:00 00:00:00 Only Unassigned, ANDRA [id number] [place] [id number] Results Test Description Test Time Test Comments [...] NOT 1092) ACCURATE CRE ATININE CLEARANCE IN CA EDICTING GLOMERULAR FILT RATION RATE. ESTIMATED GFR IS NOT APPLICABLE FOR DIALYSIS PATIENTS. CBC W/PLT COUNT & AUTO [id number] 05:12:00 Test Item Value Reference Range Interpretation [...] 0-1 PERCENT (BEAKER) (test code = 2801) [id number] 10:40:00 Test Item Value Reference Range Interpretation Comments MAGNESIUM (BEAKER) (test code = 1.9 mg/dL 1.6-2.6 627) BASIC METABOLIC [id number] 06:22:00 Test Item Value Reference Range Interpretation [...] NOT APPLICABLE FOR DIALYSIS PATIEN TS. TROPONIN [id number] 06:07:00 Test Item Value Reference Range Interpretation [...] (BEAKER) (test code = 2801) VANCOMYCIN LEVEL, [id number] 15:51:00 Test Item Value Reference Range Interpretation Comments VANCOMYCIN TROUGH (BEAKER) (test 7.0 ug/mL 10.0-20.0 L code = 522) [id number] 11:25:00 Test Item Value Reference Range Interpretation Comments PARTIAL THROMBOPLASTIN TIME 77.4 seconds 22.5-36.0 H (BEAKER) (test code = 760) RAD, CHEST, 1 VIEW, NON [id number] 09:31:00Reason for exam:->Balloon Pump Positioning; perform at [...] MDReport Verified Date/Time: 12/30/2018 09:31:26 Reading Location: [facility] Radiology Reading Room [id number] 03:22:00 Test Item Value Reference Range Interpretation Comments MAGNESIUM (BEAKER) (test code = 2.0 mg/dL 1.6-2.6 627) BASIC METABOLIC [id number] 03:22:00 Test Item Value Reference Range Interpretation [...] S NOT APPLICABLE FOR DIALYSIS PATIEN TS. [id number] 03:18:00 Test Item Value Reference Range Interpretation Comments PARTIAL THROMBOPLASTIN TIME 81.6 seconds 22.5-36.0 H (BEAKER) (test code = 760) CBC W/PLT COUNT & AUTO [id number] 03:08:00 Test Item Value Reference Range Interpretation [...] 0-1 PERCENT (BEAKER) (test code = 2801) [id number] 19:07:00 Test Item Value Reference Range Interpretation Comments PARTIAL THROMBOPLASTIN TIME 55.9 seconds 22.5-36.0 H (BEAKER) (test code = 760) TROPONIN [id number] 17:30:00 Test Item Value Reference Range Interpretation [...] failure, acidosis, acute neurological disease, and persistent tachyarrhythmia.[id number] 17:17:00 Test Item Value Reference Range Interpretation Comments POTASSIUM (BEAKER) (test code = 4.2 meq/L 3.5-5.1 379) [id number] 17:17:00 Test Item Value Reference Range Interpretation Comments MAGNESIUM (BEAKER) (test code = 2.2 mg/dL 1.6-2.6 627) HEMOGLOBIN [id number] 08:08:00 Test Item Value Reference Range Interpretation Comments HEMOGLOBIN A1C (BEAKER) (test code = 6.1 % 4.3-6.1 368) [id number] 04:35:00 Test Item Value Reference Range Interpretation Comments ACTIVATED CLOTTING TIME 180 [address] [facility] 6720 (BEAKER) (test code = [place]) [id number] TSH/FREE T4 IF [id number] 04:24:00 Test Item Value Reference Range Interpretation Comments THYROID STIMULATING HORMONE 1.52 uIU/mL 0.35-4.94 (BEAKER) (test code = 772) TROPONIN [id number] 04:19:00 Test Item Value Reference Range Interpretation [...] failure, acidosis, acute neurological disease, and persistent tachyarrhythmia.[id number] 04:17:00 Test Item Value Reference Range Interpretation Comments PARTIAL THROMBOPLASTIN TIME > seconds 22.5-36.0 HH (BEAKER) (test code = 760) [id number] 04:11:00 Test Item Value Reference Range Interpretation Comments MAGNESIUM (BEAKER) (test code = 1.8 mg/dL 1.6-2.6 627) BASIC METABOLIC [id number] 04:11:00 Test Item Value Reference Range Interpretation [...] NOT APPLICABLE FOR DIALYSIS PATIEN TS. LIPID [id number] 04:11:00 Test Item Value Reference Range Interpretation [...] Very High >=190CBC W/PLT COUNT & AUTO [id number] 03:39:00 Test Item Value Reference Range Interpretation [...] 0-1 PERCENT (BEAKER) (test code = 2801) [id number] 02:12:00 Test Item Value Reference Range Interpretation Comments ACTIVATED CLOTTING TIME 241 sec TEST ED AT [place] [address] ([facility]) (test code = [place] [address]) [id number] 00:38:00 Test Item Value Reference Range Interpretation Comments ACTIVATED CLOTTING TIME 257 sec TEST ED AT [place] [address] ([facility]) (test code = [place] [address]) [id number] 00:38:00 Test Item Value Reference Range Interpretation Comments ACTIVATED CLOTTING TIME [address] [facility] 67 ([place]) (test code = [facility] [place] [address]) [address]
[2021-09-01 14:43] LABS: Absolute Lymphocytes (CBC) 0.2 K/uL (0.7-4.9); Hematocrit 37.4 % (39.6-49.0); Lymphocytes % 3.6 % (15.3-44.8); MPV 7.8 fL (7.6-11.3); RBC Red Blood Cell Count 4.24 M/uL (4.33-5.43)
[2021-09-01 14:44] LABS: Protime INR 0.98
[2021-09-01 14:59] LABS: Magnesium 2.8 mg/dL (1.8-2.4); Potassium 4.4 mmol/L (3.5-5.1); Troponin High Sensitivity 44.6 pg/mL (<58.9)
--- NOTE | 2021-09-01 15:50 | RAD REPORT ---
EXAM DESCRIPTION: Perry Single View09/01/2021 2:59 pm CLINICAL HISTORY: Chest pain COMPARISON: 2020 FINDINGS: Extensive bilateral pulmonary opacities. The heart is mildly enlarged. Postsurgical changes involve chest IMPRESSION: Extensive bilateral pulmonary opacities. I suspect most if not all this represents pulmo nary fibrosis
--- NOTE | 2021-09-01 15:52 | RAD REPORT ---
EXAM DESCRIPTION: RAD - Foot Left 3 View - 09/01/2021 3:00 pm CLINICAL HISTORY: Left Foot pain status post injury FINDINGS: No fracture is seen. Bones are osteoporotic. Mild subluxation first distal phalanx. I suspect this is chronic but should be correlated clinically.
--- NOTE | 2021-09-01 16:53 | ER ---
Nurse's Notes [facility] Name: Alexandro Reinoso Age: 75 yrs Sex: Male : 1945 Arrival Date: 09/01/2021 Time: 13:56 Bed 15 Private MD: Diagnosis: COPD/ Chronic obstructive pulmonary disease with (acute) exacerbation Presentation: 09/01 14:00 Chief complaint: Patient states: shortness of breath. Coronavirus screen: Vaccine torres status: Patient reports receiving the 2nd dose of the covid vaccine. Ebola Screen: Patient denies travel to an Ebola-affected area in the 21 days before illness onset. Initial Sepsis Screen: Does the patient meet any 2 criteria? Yes Does the patient have a suspected source of infection? No. Patient's initial sepsis screen is negative. Risk Assessment: Do you want to hurt yourself or someone else? Patient reports no desire to harm self or others. Onset of symptoms was September 01, 2021. 14:00 Method Of Arrival: EMS: [facility] torres 14:00 Acuity: SAMUEL 2 torres Triage Assessment: 14:00 General: Appears uncomfortable, Behavior is calm, cooperative. Pain: Denies pain. torres Historical: - Allergies: 13:56 PENICILLINS; ss - Home Meds: 14:04 Albuterol Inhl as needed [Active]; aspirin 81 mg Oral TbEC 1 tab once daily [Active]; torres atorvastatin 80 mg Oral tab 1 tab once daily [Active]; clopidogrel 75 mg Oral tab [Active]; diltiazem HCl 240 mg Oral CDER 1 cap 2x day [Active]; famotidine 20 mg Oral tab 1 tab once daily [Active]; Januvia 100 mg Oral tab 1 tab once daily [Active]; metformin 500 mg Oral tab 1 tab 2 times per day [Active]; montelukast 10 mg Oral tab 1 tab once daily [Active]; nitroglycerin 0.4 mg SL subl 1 tab as needed [Active]; prednisone 10 mg Oral tab 1 tab once daily [Active]; prednisone 5 mg Oral tab 1 tab once daily [Active]; spironolactone 25 mg Oral tab 1 tab once daily [Active]; Shorty-Dur 200 mg Oral Tb12 1 tab twice a day [Active]; Ventolin HFA 90 mcg/actuation Nebulizer HFAA 2 puffs every 4-6 hours [Active]; - PMHx: 13:56 CAD; COPD; High Cholesterol; Hypertension; Myocardial infarction; ss - PSHx: 13:56 heart surgery; ss - Immunization history:: Adult Immunizations up to date. - Social history:: Smoking status: Patient/guardian denies using tobacco. Screenin:02 Abuse screen: Denies threats or abuse. Denies injuries from another. Nutritional torres screening: No deficits noted. Tuberculosis screening: No symptoms or risk factors identified. Fall Risk None identified. Assessment: 17:25 General: Appears in no apparent distress. Behavior is calm, cooperative. Pain: Denies torres pain. Respiratory: Reports shortness of breath Airway is patent Respiratory effort is labored, shallow, Breath sounds are diminished bilaterally. Vital Signs: 14:00 BP 152 / 70; Pulse 112; Resp 22; Temp 98.1(O); Pulse Ox 95% on Non-rebreather mask; torres Weight 65.32 kg; Height 5 ft. 5 in. (165.10 cm); 16:00 BP 125 / 66; Pulse 110; Resp 20; Pulse Ox 96% on 6% Non-rebreather mask; torres 16:00 Pulse 112; Resp 20; Pulse Ox 93% on 4 lpm NC; torres 14:00 Body Mass Index 23.96 (65.32 kg, 165.10 cm) ED Course: 13:56 Patient arrived in ED. ds1 13:56 Evert Corral MD is Attending Physician. sp3 13:59 Kasie Mtz, SALLIE is Primary Nurse. torres 14:00 Arm band placed on. torres 14:02 Triage completed. torres 14:02 Patient has correct armband on for positive identification. Bed in low position. torres 14:02 No provider procedures requiring assistance completed. Maintain EMS IV. Gauge \T\ site: torres 20g LAC. 14:37 Inserted saline lock: 20 gauge in right antecubital area, using aseptic technique. eh3 15:01 XRAY Chest (1 view) In Process Unspecified. EDMS 15:01 Foot Left 3 View XRAY In Process Unspecified. EDMS 17:25 Inserted IV discontinued, intact, Pressure dressing applied. torres Administered Medications: 14:21 CANCELLED (Physician Discretion; recieved in route with EMSs): SOLU-Medrol ww (methylPrednisoLONE) 125 mg IVP every 20 minutes; Give 3 total doses 14:40 Drug: Albuterol - atroVENT (ipratropium) (3:1) (2.5 mg - 0.5 mg) 3 ml Route: Nebulizer; torres 14:40 Drug: LevaQUIN (levofloxacin) 500 mg Volume: 100 ml; Route: IVPB; Infused Over: 60 torres mins; Site: right antecubital; Outcome: 16:52 Discharge ordered by MD. mcmahan 17:25 Discharged to home with family. torres 17:25 Condition: good 17:25 Discharge instructions given to patient, family, Prescriptions given X 4. 17:32 Patient left the ED. torres Signatures: Dispatcher [employer] EDAL Zara Wilburn ds1 Vera Calvert RN RN Evert Griffiths MD MD sp3 Kasie Mtz RN RN ha Hall, Erin eh3 Wood, Whitney RN ww
--- NOTE | 2021-09-01 16:53 | EDPHYS ---
Physician Documentation [facility] Name: Alexandro Reinoso Age: 75 yrs Sex: Male : 1945 Arrival Date: 09/01/2021 Time: 13:56 Bed 15 Private MD: ED Physician Evert Corral HPI: 09/01 14:25 This 75 yrs old Male presents to ER via EMS with complaints of Shortness Of Breath. [email or web address] 14:25 75-year-old male with a history of COPD, hypertension, [place], CAD and the patient of Dr. martir Maciel presents to the ED for COPD exacerbation. Patient states that every time his steroid taper goes down to 10 mg which is his baseline daily dose, he keeps having an exacerbation. This is his fourth visit in the last 8 months. He denies any fever, chest pain, productive cough, abdominal pain, nausea, vomiting, diarrhea, known sick contacts, or any other symptoms on ROS at this time.. Historical: - Allergies: 13:56 PENICILLINS; ss - Home Meds: 14:04 Albuterol Inhl as needed [Active]; aspirin 81 mg Oral TbEC 1 tab once daily [Active]; torres atorvastatin 80 mg Oral tab 1 tab once daily [Active]; clopidogrel 75 mg Oral tab [Active]; diltiazem HCl 240 mg Oral CDER 1 cap 2x day [Active]; famotidine 20 mg Oral tab 1 tab once daily [Active]; Januvia 100 mg Oral tab 1 tab once daily [Active]; metformin 500 mg Oral tab 1 tab 2 times per day [Active]; montelukast 10 mg Oral tab 1 tab once daily [Active]; nitroglycerin 0.4 mg SL subl 1 tab as needed [Active]; prednisone 10 mg Oral tab 1 tab once daily [Active]; prednisone 5 mg Oral tab 1 tab once daily [Active]; spironolactone 25 mg Oral tab 1 tab once daily [Active]; Shorty-Dur 200 mg Oral Tb12 1 tab twice a day [Active]; Ventolin HFA 90 mcg/actuation Nebulizer HFAA 2 puffs every 4-6 hours [Active]; - PMHx: 13:56 CAD; COPD; High Cholesterol; Hypertension; Myocardial infarction; ss - PSHx: 13:56 heart surgery; ss - Immunization history:: Adult Immunizations up to date. - Social history:: Smoking status: Patient/guardian denies using tobacco. ROS: 14:29 Constitutional: Negative for fever, chills, and weight loss, Eyes: Negative for injury, sp3 pain, redness, and discharge, ENT: Negative for injury, pain, and discharge, Neck: Negative for injury, pain, and swelling, Cardiovascular: Negative for chest pain, palpitations, and edema, Abdomen/GI: Negative for abdominal pain, nausea, vomiting, diarrhea, and constipation, MS/Extremity: Negative for injury and deformity, Skin: Negative for injury, rash, and discoloration, Neuro: Negative for headache, weakness, numbness, tingling, and seizure, Psych: Negative for depression, anxiety, suicide ideation, homicidal ideation, and hallucinations, Allergy/Immunology: Negative for hives, rash, and allergies, Endocrine: Negative for neck swelling, polydipsia, polyuria, polyphagia, and marked weight changes. 14:29 All other systems are negative. Exam: 14:29 Constitutional: This is a well developed, well nourished patient who is awake, alert, sp3 and in no acute distress. Head/Face: Normocephalic, atraumatic. Eyes: Pupils equal round and reactive to light, extra-ocular motions intact. Lids and lashes normal. Conjunctiva and sclera are non-icteric and not injected. Cornea within normal limits. Periorbital areas with no swelling, redness, or edema. ENT: Nares patent. No nasal discharge, no septal abnormalities noted. External auditory canals are clear. Oropharynx with no redness, swelling, or masses, exudates, or evidence of obstruction, uvula midline. Mucous membranes moist. Neck: Trachea midline, no thyromegaly or masses palpated, and no cervical lymphadenopathy. Supple, full range of motion without nuchal rigidity, or vertebral point tenderness. No Meningismus. Chest/axilla: Normal chest wall appearance and motion. Nontender with no deformity. No lesions are appreciated. Abdomen/GI: Soft, non-tender, with normal bowel sounds. No distension or tympany. No guarding or rebound. No evidence of tenderness throughout. Skin: Warm, dry with normal turgor. Normal color with no rashes, no lesions, and no evidence of cellulitis. MS/ Extremity: Pulses equal, no cyanosis. Neurovascular intact. Full, normal range of motion. Neuro: Awake and alert, GCS 15, oriented to person, place, time, and situation. Cranial nerves II-XII grossly intact. Motor strength 5/5 in all extremities. Sensory grossly intact. Cerebellar exam normal. Normal gait. 14:29 Respiratory: Mild wheezing expiratory. No significant respiratory distress. Patient states that he has felt much better since receiving magnesium and Solu-Medrol in route from [place].. 15:33 ECG was reviewed by the Attending Physician. KG demonstrates sinus tachycardia at 108 sp3 bpm with normal intervals, normal QRS, normal axis, normal ST/T segments without any evidence of ischemia. Vital Signs: 14:00 BP 152 / 70; Pulse 112; Resp 22; Temp 98.1(O); Pulse Ox 95% on Non-rebreather mask; torres Weight 65.32 kg; Height 5 ft. 5 in. (165.10 cm); 16:00 BP 125 / 66; Pulse 110; Resp 20; Pulse Ox 96% on 6% Non-rebreather mask; torres 16:00 Pulse 112; Resp 20; Pulse Ox 93% on 4 lpm NC; torres 14:00 Body Mass Index 23.96 (65.32 kg, 165.10 cm) torres MDM: 14:06 Patient medically screened. sp3 14:30 Data reviewed: vital signs, nurses notes. ED course: 25-year-old male with COPD sp3 exacerbation. Patient is feeling much better and I do not believe he will require admission. Chest x-ray, labs are still pending. We will continue give nebulizers disposition once work-up is returned. He also has a traumatic injury to his left foot which she states happened during a mechanical fall. We will x-ray his left foot.. 16:50 ED course: Patient maintaining oxygenation at 92 to 94% on 4 L nasal cannula which is sp3 his baseline at home. Patient feels much improved and is amenable to discharge. Will place patient on a prednisone taper and have him follow-up with his legal technician. Patient knows to return here at any time if his symptoms worsen. He also has ability at home to increase his home oxygen to 6 and 10 L if required.. 09/01 14:06 Order name: Basic Metabolic Panel; Complete Time: 15:31 sp3 09/01 14:06 Order name: CBC with Diff sp3 09/01 14:06 Order name: Magnesium; Complete Time: 15:31 sp3 09/01 14:06 Order name: NT PRO-BNP; Complete Time: 15:31 sp3 09/01 14:06 Order name: PT-INR; Complete Time: 15:31 sp3 09/01 14:06 Order name: Troponin HS; Complete Time: 15:31 sp3 09/01 14:06 Order name: XRAY Chest (1 view); Complete Time: 16:25 sp3 09/01 14:06 Order name: EKG; Complete Time: 14:07 sp3 09/01 14:06 Order name: Cardiac monitoring; Complete Time: 14:21 sp3 09/01 14:32 Order name: Foot Left 3 View XRAY; Complete Time: 16:25 sp3 09/01 17:10 Order name: CBC Smear Scan EDMS 09/01 14:06 Order name: EKG - Nurse/Tech; Complete Time: 14:48 sp3 09/01 14:06 Order name: IV Saline Lock; Complete Time: 14:21 sp3 09/01 14:06 Order name: Labs collected and sent; Complete Time: 14:38 sp3 09/01 14:06 Order name: O2 Per Protocol; Complete Time: 14:21 sp3 09/01 14:06 Order name: O2 Sat Monitoring; Complete Time: 14:21 sp3 Administered Medications: 14:21 CANCELLED (Physician Discretion; recieved in route with EMSs): SOLU-Medrol ww (methylPrednisoLONE) 125 mg IVP every 20 minutes; Give 3 total doses 14:40 Drug: Albuterol - atroVENT (ipratropium) (3:1) (2.5 mg - 0.5 mg) 3 ml Route: Nebulizer; torres 14:40 Drug: LevaQUIN (levofloxacin) 500 mg Volume: 100 ml; Route: IVPB; Infused Over: 60 torres mins; Site: right antecubital; Disposition Summary: 09/01/21 16:52 Discharge Ordered Location: Home sp3 Condition: Stable sp3 Diagnosis - COPD/ Chronic obstructive pulmonary disease with (acute) exacerbation sp3 Followup: sp3 - With: Private Physician - When: Upon discharge from the Emergency Department - Reason: Recheck today's complaints Discharge Instructions: - Discharge Summary Sheet sp3 - Chronic Obstructive Pulmonary Disease sp3 Forms: - Medication Reconciliation Form sp3 - Thank You Letter sp3 - Antibiotic Education sp3 - Prescription Opioid Use sp3 Prescriptions: - Prednisone 20 mg Oral Tablet - take 1 tablet by ORAL route once daily for 5 days; 5 tablet; Refills: 0, sp3 Product Selection Permitted - Prednisone 20 mg Oral Tablet - take 3 tablets by ORAL route once daily for 5 days; 15 tablet; Refills: 0, sp3 Product Selection Permitted - Prednisone 20 mg Oral Tablet - take 2 tablets by ORAL route once daily for 5 days; 10 tablet; Refills: 0, sp3 Product Selection Permitted - levofloxacin 500 mg Oral Tablet - take 1 tablet by ORAL route once daily for 7 days; 6 tablet; Refills: 0, sp3 Product Selection Permitted Signatures: Dispatcher [employer] Vera Lind RN RN Evert Griffiths MD MD sp3 Kasie Mtz RN RN ha Wood, Whitney RN ww Corrections: (The following items were deleted from the chart) 14:21 14:06 SOLU-Medrol (methylPrednisoLONE) 125 mg IVP every 20 minutes; Give 3 total doses ww ordered. sp3
[2021-09-01 17:10] LABS: Blood Morphology Comment NOT SEEN (NOT SEEN); Platelet Estimate ADEQ; White Blood Cell Scan OK (OK)
[2021-09-01 19:26] VITALS: TEMP 98.1
[2021-09-01 19:37] VITALS: BP 125/66; O2SAT 93
--- NOTE | 2021-09-02 09:23 | EKG ---
Test Date: 2021-09-01 Test Time: 14:46:21 Portable Sawyer: BARI MEASUREMENT RESULTS: Intervals: Rate: 108 HI: 164 QRSD: 86 QT: 348 QTc: 466 [place]: P: 57 HI: 164 QRS: 35 T: 60 INTERPRETIVE STATEMENTS: Sinus tachycardia Possible Left atrial enlargement Borderline ECG Compared to ECG 08/06/2021 18:25:10 No significant changes Electronically Signed On 09-02-21 09:22:30 CDT by Lyle Gunderson
== END 2021-09-01 17:32 | disposition home or self-care (01) ==
LOC: ER 13:55
DX: J44.1 Chronic obstructive pulmonary disease with (acute) exacerbation (principal); I10 Essential (primary) hypertension; E78.00 Pure hypercholesterolemia, unspecified; I25.2 Old myocardial infarction; Z88.0 Allergy status to penicillin; Z79.82 Long term (current) use of aspirin
CPT/HCPCS: 36415; 71045; 80048; 83735; 83880; 84484; 85025; 85610; 93005; 94640; 96374; 99284

== ENCOUNTER 2021-10-25 15:11 | Inpatient (IN) | payer OTHER, BC ==
[2021-10-25] MEDS ORDERED: CEFTRIAXONE 1000 MG/VIAL ONE (15:47)
[2021-10-25] MEDS ORDERED: MAGNESIUM SULFATE 1 gm IVPB 1 GM/100 ML BAG IV ONE (15:47)
[2021-10-25] MEDS ORDERED: METHYLPREDNISOLONE 125 MG INJ ONE (15:47)
[2021-10-25 15:52] LABS: Absolute Lymphocytes (CBC) 0.7 K/uL (0.7-4.9); Hematocrit 39.8 % (39.6-49.0); Lymphocytes % 4.2 % (15.3-44.8); MCV 88.9 fL (80-100); MPV 8.3 fL (7.6-11.3); RBC Red Blood Cell Count 4.47 M/uL (4.33-5.43)
[2021-10-25 16:03] LABS: Potassium 4.2 mmol/L (3.5-5.1); Troponin High Sensitivity 16.6 pg/mL (<58.9)
[2021-10-25] MEDS ORDERED: IPRATROPIUM BROM 0.5MG/2.5ML ONE (16:04)
[2021-10-25] MEDS ORDERED: ALBUTEROL 2.5 MG/3 ML NEB SOL ONE (16:04)
--- NOTE | 2021-10-25 16:23 | RAD REPORT ---
EXAM DESCRIPTION: Perry Single View10/25/2021 3:54 pm CLINICAL HISTORY: Congestion COMPARISON: August 2021 FINDINGS: Extensive bilateral pulmonary opacities. These are without significant change from the pr ior exam Heart is mildly enlarged. Postsurgical changes involve the chest IMPRESSION: Extensive bilateral pulmonary opacities. The majority of this represents pulmonary fibro sis. There may be a mild superimposed pulmonary edema, pneumonia or pneumonitis.
[2021-10-25] MEDS ORDERED: Levofloxacin500mg IV 500 MG/100 ML BAG IV ONE (18:54)
--- NOTE | 2021-10-25 19:30 | RAD REPORT ---
EXAM DESCRIPTION: CT - Thorax Wo Con - 10/25/2021 7:17 pm CLINICAL HISTORY: sob COMPARISON: 2018 TECHNIQUE: Computed axial tomography of the chest was obtained. Contrast was not requested. All CT scans are performed using dose optimization technique as appropriate and may include automated exposure control or mA/KV adjustment according to patient size. FINDINGS: The evaluation of mediastinum, po and vessels is limited secondary to lack of IV contras t administration. Centrilobular and paraseptal emphysema. Large bulla and blebs are present bilaterally. Moderate honeycombing within the lungs indicative of pulmonary fibrosis. 4.5 centimeter lingular opacity No mediastinal or hilar lymphadenopathy is seen. Small left pleural effusion Moderate compression fracture has developed within an upper thoracic vertebral body. IMPRESSION: Marked COPD Moderate pulmonary fibrosis 4.5 centimeter lingular opacity could be neoplastic or inflammatory. Pet CT scan recommended
--- NOTE | 2021-10-25 19:50 | EDPHYS ---
Physician Documentation [facility] Name: Alexandro Reinoso Age: 75 yrs Sex: Male : 1945 Arrival Date: 10/25/2021 Time: 15:16 Bed 8 Private MD: Александр Maciel C ED Physician Jozef Sarkar HPI: 10/25 15:17 This 75 yrs old Male presents to ER via Wheelchair with complaints of Breathing jmm Difficulty. 15:17 The patient has shortness of breath at rest. Onset: The symptoms/episode began/occurred jmm gradually. This is a 75 year old male with a history of CAD, [place], HTN, HLP, COPD that presents to the ED with complaints of shortness of breath and left sided chest pain which migrates up his chest. Patient states developing JONES with o2 going into the 70's. . Historical: - Allergies: 18:54 PENICILLINS; ld1 - PMHx: 18:54 CAD; Myocardial infarction; Hypertension; High Cholesterol; COPD; ld1 - PSHx: 18:54 heart surgery; ld1 - Immunization history:: Adult Immunizations up to date, Client reports receiving the 2nd dose of the Covid vaccine. - Social history:: Smoking status: Patient/guardian denies using tobacco, the patient reports quitting approximately 15 years ago. ROS: 15:17 Constitutional: Negative for fever, chills, and weight loss. jmm 15:17 Cardiovascular: Positive for chest pain, with movement. 15:17 Respiratory: Positive for cough, shortness of breath. 15:17 All other systems are negative. Exam: 15:17 Constitutional: This is a well developed, well nourished patient who is awake, alert, jmm and in no acute distress. Head/Face: atraumatic. Eyes: EOMI, no conjunctival erythema appreciated ENT: Moist Mucus Membranes Neck: Trachea midline, Supple Chest/axilla: Normal chest wall appearance and motion. Cardiovascular: Regular rate and rhythm. No edema appreciated Respiratory: Normal respirations, no respiratory distress appreciated Abdomen/GI: Non distended, soft Back: Normal ROM Skin: General appearance color normal MS/ Extremity: Moves all extremities, no obvious deformities appreciated, no edema noted to the lower extremities Neuro: Awake and alert Psych: Behavior is normal, Mood is normal, Patient is cooperative and pleasant Vital Signs: 15:18 Pulse Ox 57% on 4 lpm NC; ss 15:21 BP 146 / 89; Pulse 91; Resp 18; Pulse Ox 100% on Non-rebreather mask; iw 15:35 BP 142 / 86; Pulse 101; Resp 19; Pulse Ox 95% on 6 lpm NC; ld1 17:49 BP 156 / 89; Pulse 97; Resp 14; Pulse Ox 95% on 6 lpm NC; ld1 18:08 BP 149 / 81; Pulse 110; Resp 19; Pulse Ox 84% on 6 lpm NC; ld1 18:49 BP 149 / 81; Pulse 98; Resp 18; Pulse Ox 97% on 6 lpm NC; ld1 19:41 BP 152 / 76; Pulse 96; Resp 17 S; Pulse Ox 93% on 4 lpm NC; as6 MDM: 15:27 Patient medically screened. cooper 19:34 Data reviewed: vital signs, nurses notes. Counseling: I had a detailed discussion with niya the patient and/or guardian regarding: the historical points, exam findings, and any diagnostic results supporting the discharge/admit diagnosis, lab results, radiology results, the need for further work-up and treatment in the hospital. ED course: I discussed the patient with Dr. Maciel whom accepted the patient to his service. . 10/25 15:17 Order name: Basic Metabolic Panel; Complete Time: 16:06 10/25 15:17 Order name: CBC with Diff; Complete Time: 15:59 10/25 15:17 Order name: Troponin HS; Complete Time: 16:06 10/25 15:17 Order name: Blood Culture Adult (2) 10/25 15:25 Order name: SARS-COV-2 RT PCR (Document "Date of Onset" if Symptomatic); Complete Time: 16:39 10/25 15:33 Order name: Lactate; Complete Time: 16:27 [facility] 10/25 15:17 Order name: XRAY Chest (1 view); Complete Time: 16:27 10/25 19:57 Order name: Basic Metabolic Panel [facility] 10/25 19:57 Order name: Basic Metabolic Panel [facility] 10/25 19:57 Order name: CBC with Automated Diff [facility] 10/25 19:57 Order name: CBC with Automated Diff [facility] 10/25 19:57 Order name: NT PRO-BNP [facility] 10/25 19:57 Order name: NT PRO-BNP [facility] 10/25 20:36 Order name: Lactate Sepsis 2 HR Follow-up [facility] 10/25 15:17 Order name: EKG; Complete Time: 15:18 10/25 15:17 Order name: Cardiac monitoring; Complete Time: 15:23 10/25 15:17 Order name: EKG - Nurse/Tech; Complete Time: 15:41 10/25 15:17 Order name: IV Saline Lock; Complete Time: 15:23 10/25 15:17 Order name: Labs collected and sent; Complete Time: 15:41 10/25 15:17 Order name: O2 Per Protocol; Complete Time: 15:23 10/25 15:17 Order name: O2 Sat Monitoring; Complete Time: 15:23 10/25 17:28 Order name: Misc. Order: ambulate, o2; Complete Time: 18:08 [facility] 10/25 18:40 Order name: CT Chest Wo Con [facility] 10/25 18:43 Order name: Thorax Wo Con; Complete Time: 19:46 [facility] Administered Medications: 15:50 Drug: SOLU-Medrol (methylPrednisoLONE) 125 mg Route: IVP; Site: right antecubital; ld1 20:20 Follow up: Response: No adverse reaction as6 15:50 Drug: Rocephin (cefTRIAXone) 1 grams Route: IV; Rate: calculated rate; Site: right ld1 antecubital; 20:20 Follow up: Response: No adverse reaction; IV Status: Completed infusion; IV Intake: [id number] 15:50 Drug: Magnesium Sulfate 1 grams Route: IVPB; Infused Over: 1 hrs; Site: right ld1 antecubital; 20:20 Follow up: Response: No adverse reaction; IV Status: Completed infusion; IV Intake: as6 100ml 20:50 Follow up: Response: No adverse reaction kd3 16:00 Drug: DuoNeb (albuterol 2.5 mg, ipratropium 0.5 mg) (3:1) (2.5 mg - 0.5 mg) 3 ml Route: ld1 Nebulizer; 20:20 Follow up: Response: No adverse reaction as6 20:49 Follow up: Response: No adverse reaction kd3 18:49 Drug: LevaQUIN (levofloxacin) 500 mg Volume: 100 ml; Route: IVPB; Infused Over: 60 ld1 mins; Site: right antecubital; 20:20 Follow up: Response: No adverse reaction; IV Status: Completed infusion; IV Intake: as6 100ml 20:49 Follow up: Response: No adverse reaction; IV Status: Completed infusion kd3 Disposition: 10/26 07:11 Co-signature as Attending Physician, Jozef Sarkar MD I agree with the assessment and kdr plan of care. Disposition Summary: 10/25/21 19:50 Hospitalization Ordered Hospitalization Status: Inpatient Admission [facility] Provider: Александр Maciel Location: Telemetry/MedSurg (Inpatient) [facility] Condition: Stable jmm Problem: new jmm Symptoms: are unchanged [facility] Bed/Room Type: Standard [facility] Room Assignment: 208(10/25/21 20:06) eb1 Diagnosis - COPD/ Chronic obstructive pulmonary disease with (acute) exacerbation [facility] Forms: - Medication Reconciliation Form jm - SBAR form [facility] Signatures: Dispatcher [employer] EDSachin Muñoz MD MD cha Rittger, Kevin, MD MD kdr Mickail, Joel, PA PA [facility] Xiomy Barney, RN SALLIE iw Brianna Farmer RN RN eb1 Sujatha Bunn RN RN ld1 Maulik Rueda RN as6 Thao Henry RN kd3 Corrections: (The following items were deleted from the chart) 10/25 20:06 19:50 [facility] eb1
--- NOTE | 2021-10-25 19:50 | ER ---
Nurse's Notes [facility] Name: Alexandro Reinoso Age: 75 yrs Sex: Male : 1945 Arrival Date: 10/25/2021 Time: 15:16 Bed 8 Private MD: Александр Maciel C Diagnosis: COPD/ Chronic obstructive pulmonary disease with (acute) exacerbation Presentation: 10/25 15:17 Chief complaint: Patient states: has had increasing difficulty breathing over past few iw days, worse today, hx of COPD, was 33% on RA, placed on NRP up to 93%. Ebola Screen: Patient negative for fever greater than or equal to 101.5 degrees Fahrenheit, and additional compatible Ebola Virus Disease symptoms Patient denies exposure to infectious person. Patient denies travel to an Ebola-affected area in the 21 days before illness onset. No symptoms or risks identified at this time. Initial Sepsis Screen: Does the patient meet any 2 criteria? No. Patient's initial sepsis screen is negative. Does the patient have a suspected source of infection? No. Patient's initial sepsis screen is negative. Risk Assessment: Do you want to hurt yourself or someone else? Patient reports no desire to harm self or others. Onset of symptoms was October 22, 2021. 15:17 Method Of Arrival: Wheelchair iw 15:17 Acuity: SAMUEL 2 iw 18:54 Coronavirus screen: At this time, the client does not indicate any symptoms associated ld1 with coronavirus-19. Historical: - Allergies: 18:54 PENICILLINS; ld1 - PMHx: 18:54 CAD; Myocardial infarction; Hypertension; High Cholesterol; COPD; ld1 - PSHx: 18:54 heart surgery; ld1 - Immunization history:: Adult Immunizations up to date, Client reports receiving the 2nd dose of the Covid vaccine. - Social history:: Smoking status: Patient/guardian denies using tobacco, the patient reports quitting approximately 15 years ago. Screenin:35 Abuse screen: Denies threats or abuse. Denies injuries from another. Nutritional ld1 screening: No deficits noted. Tuberculosis screening: No symptoms or risk factors identified. Fall Risk None identified. Assessment: 15:35 General: Appears in no apparent distress. comfortable, Behavior is cooperative, ld1 appropriate for age, anxious. 15:35 Pain: Denies pain. Neuro: Trinidad Agitation-Sedation Scale (RASS): Level of ld1 Consciousness is awake, alert, obeys commands, Oriented to person, place, time, situation. Cardiovascular: Capillary refill < 3 seconds Patient's skin is warm and dry. Rhythm is sinus rhythm. Respiratory: Reports shortness of breath at rest on exertion Airway is patent Respiratory effort is even, labored, Respiratory pattern is regular, symmetrical, Breath sounds with crackles bilaterally. Onset: The symptoms/episode began/occurred gradually, the patient has moderate shortness of breath. Respiratory:. GI: Abdomen is round non-distended. : No signs and/or symptoms were reported regarding the genitourinary system. EENT: No signs and/or symptoms were reported regarding the EENT system. Derm: No signs and/or symptoms reported regarding the dermatologic system. Musculoskeletal: No signs and/or symptoms reported regarding the musculoskeletal system. 18:08 Reassessment: Ambulated pt in room - Pt stood up next to bed and walked around bed. ld1 18:49 Reassessment: Patient appears in no apparent distress at this time. Patient and/or ld1 family updated on plan of care and expected duration. Pain level reassessed. Patient denies pain at this time. 19:43 Reassessment: Patient states feeling better. General: Appears in no apparent distress. as6 Vital Signs: 15:18 Pulse Ox 57% on 4 lpm NC; ss 15:21 BP 146 / 89; Pulse 91; Resp 18; Pulse Ox 100% on Non-rebreather mask; iw 15:35 BP 142 / 86; Pulse 101; Resp 19; Pulse Ox 95% on 6 lpm NC; ld1 17:49 BP 156 / 89; Pulse 97; Resp 14; Pulse Ox 95% on 6 lpm NC; ld1 18:08 BP 149 / 81; Pulse 110; Resp 19; Pulse Ox 84% on 6 lpm NC; ld1 18:49 BP 149 / 81; Pulse 98; Resp 18; Pulse Ox 97% on 6 lpm NC; ld1 19:41 BP 152 / 76; Pulse 96; Resp 17 S; Pulse Ox 93% on 4 lpm NC; as6 ED Course: 15:16 Patient arrived in ED. as 15:16 Александр Maciel MD is Private Physician. as 15:18 Lexx Pearl PA is PHCP. jmm 15:18 Sachin Ruiz MD is Attending Physician. jmm 15:18 Triage completed. iw 15:23 Inserted saline lock: 20 gauge in right antecubital area, using aseptic technique. ap3 Blood collected. 15:35 No provider procedures requiring assistance completed. ld1 15:35 Patient has correct armband on for positive identification. Placed in gown. Bed in low ld1 position. Call light in reach. Side rails up X2. quality assurance monitor on. Pulse ox on. NIBP on. Door closed. Noise minimized. 15:41 Sujatha Bunn, SALLIE is Primary Nurse. ld1 15:41 SARS-COV-2 RT PCR (Document "Date of Onset" if Symptomatic) Sent. ld1 15:50 Lactate Sent. ld1 15:55 XRAY Chest (1 view) In Process Unspecified. EDMS 19:18 Thorax Wo Con In Process Unspecified. EDMS 19:25 Attending Physician role handed off by Sachin Ruiz MD kdr 19:25 Jozef Sarkar MD is Attending Physician. kdr 19:49 Александр Maciel MD is Hospitalizing Provider. jmm 20:19 Arm band placed on. as6 20:48 Patient admitted, IV remains in place. kd3 Administered Medications: 15:50 Drug: SOLU-Medrol (methylPrednisoLONE) 125 mg Route: IVP; Site: right antecubital; ld1 20:20 Follow up: Response: No adverse reaction as6 15:50 Drug: Rocephin (cefTRIAXone) 1 grams Route: IV; Rate: calculated rate; Site: right ld1 antecubital; 20:20 Follow up: Response: No adverse reaction; IV Status: Completed infusion; IV Intake: 88amxn7 15:50 Drug: Magnesium Sulfate 1 grams Route: IVPB; Infused Over: 1 hrs; Site: right ld1 antecubital; 20:20 Follow up: Response: No adverse reaction; IV Status: Completed infusion; IV Intake: as6 100ml 20:50 Follow up: Response: No adverse reaction kd3 16:00 Drug: DuoNeb (albuterol 2.5 mg, ipratropium 0.5 mg) (3:1) (2.5 mg - 0.5 mg) 3 ml Route: ld1 Nebulizer; 20:20 Follow up: Response: No adverse reaction as6 20:49 Follow up: Response: No adverse reaction kd3 18:49 Drug: LevaQUIN (levofloxacin) 500 mg Volume: 100 ml; Route: IVPB; Infused Over: 60 ld1 mins; Site: right antecubital; 20:20 Follow up: Response: No adverse reaction; IV Status: Completed infusion; IV Intake: as6 100ml 20:49 Follow up: Response: No adverse reaction; IV Status: Completed infusion kd3 Medication: 15:35 VIS not applicable for this client. ld1 Intake: 20:20 IV: 50ml; Total: 50ml. as6 20:20 IV: 100ml; Total: 150ml. as6 20:20 IV: 100ml; Total: 250ml. as6 Outcome: 19:50 Decision to Hospitalize by Provider. [facility] 20:19 Condition: stable as6 20:19 Instructed on the need for admit. 20:48 Patient left the ED. kd3 20:49 Admitted to Med/surg accompanied by nurse, accompanied by tech. kd3 Signatures: Dispatcher [employer] EDMS Jozef Sarkar MD MD kdr Mickail, Joel, PA PA jmm Martinez, Amelia as Williams, Irene, SALLIE RIZO iw Vera Calvert RN RN Rosetta Butcher RN RN ap3 Sujatha Bunn RN RN ld1 Maulik Rueda RN RN as6 Thao Henry RN RN kd3 Corrections: (The following items were deleted from the chart) 15:39 15:21 Pulse 91bpm; Resp 18bpm; Pulse Ox 100% Non-rebreather mask; [facility] 15:54 15:35 BP 142 / 86; Pulse 101bpm; Resp 19bpm; Pulse Ox 87% 5 lpm Nasal Cannula; ld1 ld1
[2021-10-25] MEDS ORDERED: IPRATROPIUM BROM 0.5MG/2.5ML NEB PRN (19:53)
[2021-10-25] MEDS ORDERED: ALBUTEROL 2.5 MG/3 ML NEB SOL NEB PRN (19:53)
[2021-10-25] MEDS ORDERED: ONDANSETRON 4 MG/2 ML VIAL IV PRN (19:53)
[2021-10-25] MEDS ORDERED: ACETAMINOPHEN 500 MG TAB PO PRN (19:53)
[2021-10-25 21:21] VITALS: BMI 25.0
[2021-10-25] MEDS ORDERED: GLUCAGON 1 MG/VIAL IM PRN (21:34)
[2021-10-25] MEDS ORDERED: D50W 25 GM/50 ML SYRINGE IV PRN (21:34)
[2021-10-25] MEDS ORDERED: D10W 125 ML IV PRN (22:10)
[2021-10-25] MEDS: INSULIN -REGULAR HUMAN 50 UNIT/0.5 ML ML SQ SCH (22:18)
[2021-10-26] MEDS: METHYLPREDNISOLONE 40 MG INJ IV SCH ×3 (01:02→16:16)
[2021-10-26 06:13] LABS: Absolute Lymphocytes (CBC) 0.4 K/uL (0.7-4.9); Hematocrit 34.8 % (39.6-49.0); Lymphocytes % 4.5 % (15.3-44.8); MCV 87.2 fL (80-100); MPV 8.2 fL (7.6-11.3); RBC Red Blood Cell Count 3.99 M/uL (4.33-5.43)
[2021-10-26 06:14] LABS: Potassium 4.1 mmol/L (3.5-5.1)
[2021-10-26 07:09] LABS: Blood Morphology Comment NOT SEEN (NOT SEEN); Platelet Estimate ADEQ; Platelets, Giant RARE
[2021-10-26] MEDS: INSULIN -REGULAR HUMAN 50 UNIT/0.5 ML ML SQ SCH ×4 (07:30→21:59)
[2021-10-26] MEDS ORDERED: BUDESONIDE 0.5 MG/2 ML NEB IH SCH (08:00)
[2021-10-26] MEDS ORDERED: ARFORMOTEROL TARTRATE 15 MCG/2 ML VIAL.NEB IH SCH (08:00)
[2021-10-26] MEDS: GLIPIZIDE S.A. 5 MG TAB PO SCH (09:17)
[2021-10-26] MEDS: ASPIRIN EC 81 MG TAB PO SCH (09:17)
[2021-10-26] MEDS: CLOPIDOGREL 75 MG TABLET PO SCH (09:17)
[2021-10-26] MEDS: METFORMIN ER 500 MG TAB PO SCH ×2 (09:17→21:59)
[2021-10-26] MEDS: DILTIAZEM HCL 120 MG SR CAP PO SCH (09:17)
[2021-10-26] MEDS: SPIRONOLACTONE 25 MG TABLET PO SCH (09:18)
[2021-10-26] MEDS ORDERED: VANCOMYCIN 1 GM in NA CHLORIDE 0.9% 250 ML IVPB SCH (13:00)
[2021-10-26] MEDS: ARFORMOTEROL TARTRATE 15 MCG/2 ML VIAL.NEB IH SCH ×3 (13:00→19:25)
[2021-10-26] MEDS: BUDESONIDE 0.5 MG/2 ML NEB IH SCH ×2 (13:00→20:00)
[2021-10-26] MEDS: VANCOMYCIN 1.25 GM in NA CHLORIDE 0.9% 250 ML IVPB SCH (13:26)
[2021-10-26] MEDS ORDERED: IPRATROPIUM BROM 0.5MG/2.5ML NEB PRN (15:00)
[2021-10-26] MEDS ORDERED: ALBUTEROL 2.5 MG/3 ML NEB SOL NEB PRN (15:00)
[2021-10-26] MEDS: Levofloxacin500mg IV 500 MG/100 ML BAG IV SCH (16:17)
--- NOTE | 2021-10-26 17:23 | HP ---
Date of Admission: 10/25/2021 Chief Complaint: Shortness of breath. History Of Present Illness: This is a 75-year-old male patient came into emergency room with few day s history of worsening shortness of breath and some chest pain, which to start with he had it in left lower and mid chest area and then also started to have right-sided chest pain. Pain is worse if he is lying in certain position. Denies any fever. He has chronic cough and coughs up some mucus, but in the last few days it has increased in amount and changed color. Denies any vomiting or diarrhea. The patient has severe COPD and he is oxygen dependent. At rest, he stays on oxygen between 4-5 L p er nasal cannula and with any activity because his oxygen saturation drops, he increases his oxygen t o 10 L/minute until he settles down and this is his baseline status. He is also steroid dependent an d takes 15 mg prednisone on a daily basis. He sees his mortgage processor, Dr. Lopez through [facility] system. Medications: List reviewed. Review of Systems: Respiratory: As mentioned above. Cardiovascular: Bilateral lower leg swelling. All other systems reviewed and negative. Allergies: TO PENICILLIN. Past Medical History: Significant for severe COPD for which he is oxygen dependent and steroid depen dent, impaired fasting glucose, hypertension, hyperlipidemia, chronic respiratory failure with hypoxi a, coronary artery disease, history of myocardial infarction in December 2018, benign prostatic hype rtrophy. Past Surgical History: Coronary artery stent placement in December 2018 and coronary artery bypass surgery in 2008. Family History: Father had diabetes and stroke. Mother had COPD and diabetes. Siblings with diabet es. Social History: Prior history of smoking, not at present time. Use of alcohol negative. Immunization Status: The patient had his COVID-19 vaccine on June 28, 2020; July 26, 2020; and Nove mber 2020. Physical Examination: Vital Signs: When he first arrived to the emergency room, his oxygen saturation was 57% on 4 L nasal cannula oxygen and initial vital signs in the emergency room, blood pressure 146/89, pulse 91, respi ratory rate 18, oxygen saturation 100% on non-rebreather oxygen. When I saw him, he was on nasal can nula oxygen and oxygen saturation was around 90%, but with any movement it would drop down to 87% to 88%. General: Awake, alert, oriented, not in distress. HEENT: Head atraumatic, normocephalic. Conjunctivae nonerythematous. Sclerae white. Mouth, no thr ush or edema noted. Ears/Nose, no mass, lesion, discharge noted. Neck: Supple. No JVD, lymph nodes, bruit, thyromegaly noted. Lungs: Presence of some bilateral rales noted in lower lung region. Not using any accessory muscles of respiration at rest. Heart: Normal heart sounds, no murmur or gallop. Abdomen: Soft, bowel sounds normal. No guarding, rigidity, tenderness, mass, hepatosplenomegaly, dis tention, or bruit noted. Extremities: Bilateral grade 1 pedal edema involving lower 1/4th of both legs. Skin: No rash, ulcer, cellulitis. Lymphatics: No lymph node enlargement in neck, supraclavicular, infraclavicular region. Neuro: No focal neurological deficit. Chest: Unremarkable. External Genitalia: Deferred. Rectal: Deferred. Laboratory Data: COVID-19 test negative. White count 16, hemoglobin 13, platelets 289. Sodium 137, potassium 4.2, chloride 101, bicarb 25, BUN 14, creatinine 0.99, glucose 293. Lactic acid 3.1. Tro ponin 16.6. Chest x-ray shows extensive bilateral fibrotic changes. CAT scan of the chest shows 4.5 cm lingular opacity and marked COPD changes and compression fracture of thoracic spine. Impression: 1.Acute exacerbation of chronic obstructive pulmonary disease. 2.Chronic respiratory failure with hypoxia, with acute exacerbation. 3.Rule out lung cancer. 4.Rule out pneumonia. 5.Compression fracture of thoracic spine. 6.Chronic steroid therapy. 7.Coronary artery disease. 8.Hypertension. 9.Hyperlipidemia. 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 11.Benign prostatic hypertrophy. Plan: We will go ahead and admit the patient to hospital for further evaluation and management of th is problem. The patient is appropriate for inpatient and [facility] We will go ahead and continue home medications per order. DVT prophylaxis will be given. Start the patient on IV steroid and IV antibiotics. We will give Solu-Medrol 60 mg q.6 hours as well as Le vaquin 500 mg IV daily. CAT scan of the chest result was not available when I saw him in the emergen cy room, so I will discuss these details with him tomorrow. We will go ahead and get hemoglobin A1c on him as his blood glucose is elevated indicating steroid-induced diabetes and depending on A1c resu lts, we will decide about appropriate oral medical therapy for diabetes. Right now, we will go ahead and manage with sliding scale insulin. Overall prognosis is poor. BEATRIZ/MODL Voice ID: [id number]
[2021-10-27] MEDS: VANCOMYCIN 1.25 GM in NA CHLORIDE 0.9% 250 ML IVPB SCH ×2 (01:44→12:33)
[2021-10-27] MEDS: METHYLPREDNISOLONE 40 MG INJ IV SCH ×3 (01:44→16:15)
[2021-10-27] MEDS: METFORMIN ER 500 MG TAB PO SCH ×2 (08:02→21:27)
[2021-10-27] MEDS: CLOPIDOGREL 75 MG TABLET PO SCH (08:02)
[2021-10-27] MEDS: GLIPIZIDE S.A. 5 MG TAB PO SCH (08:02)
[2021-10-27] MEDS: ASPIRIN EC 81 MG TAB PO SCH (08:02)
[2021-10-27] MEDS: SPIRONOLACTONE 25 MG TABLET PO SCH (08:02)
[2021-10-27] MEDS: DILTIAZEM HCL 120 MG SR CAP PO SCH (08:02)
[2021-10-27] MEDS: ARFORMOTEROL TARTRATE 15 MCG/2 ML VIAL.NEB IH SCH ×2 (09:21→19:40)
[2021-10-27] MEDS: BUDESONIDE 0.5 MG/2 ML NEB IH SCH ×2 (09:21→19:40)
[2021-10-27] MEDS: ENOXAPARIN 30 MG/0.3 ML SQ SCH (09:22)
[2021-10-27] MEDS: INSULIN -REGULAR HUMAN 50 UNIT/0.5 ML ML SQ SCH ×4 (09:22→19:33)
--- NOTE | 2021-10-27 09:54 | EKG ---
Test Date: 2021-10-25 Test Time: 15:22:59 [employer]course Barrier Attendant: MARYANA MEASUREMENT RESULTS: Intervals: Rate: 93 AK: 220 QRSD: 86 QT: 364 QTc: 452 [place]: P: 18 AK: 220 QRS: 34 T: 58 INTERPRETIVE STATEMENTS: Sinus rhythm with 1st degree AV block with occasional premature ventricular complexes RSR' or QR pattern in V1 suggests right ventricular conduction delay Nonspecific ST abnormality Abnormal ECG Compared to ECG 09/01/2021 14:46:21 Ventricular premature complex(es) now present First degree AV block now present RSR' in V1 or V2 now present ST (T wave) deviation now present Sinus tachycardia no longer present Electronically Signed On 10-27-21 09:49:02 CDT by Lyle Gunderson
--- NOTE | 2021-10-27 09:54 | EKG ---
Test Date: 2021-10-25 Test Time: 15:26:29 Patient Access Director: MARYANA MEASUREMENT RESULTS: Intervals: Rate: 91 TN: 168 QRSD: 86 QT: 366 QTc: 450 [place]: P: 60 TN: 168 QRS: 34 T: 46 INTERPRETIVE STATEMENTS: Normal sinus rhythm RSR' or QR pattern in V1 suggests right ventricular conduction delay Borderline ECG Compared to ECG 10/25/2021 15:22:59 Ventricular premature complex(es) no longer present First degree AV block no longer present ST (T wave) deviation no longer present Electronically Signed On 10-27-21 09:49:01 CDT by Lyle Gunderson
--- NOTE | 2021-10-27 13:45 | PN ---
Date of Progress Note: 10/26/2021 Subjective: The patient was seen this morning for followup. No new complaints or problems reported by him. Lying in bed, not in distress. Objective: Vital Signs: Reviewed. HEENT: Examination unremarkable. Lungs: Bilateral good equal air entry. Presence of some rales in both lung bases. Not using any ac cessory muscles of respiration at rest. Heart: Sounds normal. Abdomen: Soft. Bowel sounds normal. No guarding, rigidity, tenderness, distention. Extremities: Trace leg edema, better today than yesterday. Diagnostic Data: Labs reviewed. Impression: 1.Acute exacerbation of chronic obstructive pulmonary disease. 2.Chronic respiratory failure with hypoxia, with acute exacerbation. 3.Rule out pneumonia. 4.Rule out lung cancer. 5.Coronary artery disease. Plan: I have discussed CAT scan of the chest finding with the patient showing 4.5 cm density in the left lung in lingula, and I have advised him to follow up with his labor custodian, Dr. Lopez at [facility] within next couple of weeks after the discharge from the hospital with copy of chest x-ray an d a CAT scan of the chest report as well as film, and nursing staff was advised to get copy of films from the Radiology Department and give it to patient as well as give copy of this radiology reports t o patient to take it to his labor custodian. The patient was made aware of different possibilities inc luding either pneumonia or lung cancer, and further evaluation will be necessary by his lung speciali st. Meanwhile, we will continue his current oxygen nebulizer treatment, steroid, current home medica tions. His blood culture today has grown some gram-positive bacteria, so we will hold discharge. Co ntinue his current medication of Levaquin, and we will also add vancomycin. Consult Pharmacy for vancomycin dose management. The patient still has signifi cant hypoxia with any activity. BEATRIZ/MODL Voice ID: [id number] Report ID: [id number]
--- NOTE | 2021-10-27 13:45 | PN ---
Date of Progress Note: 10/27/2021 Subjective: The patient was seen this morning for followup. No new complaints or problems reported. He reports that when he gets up to do any activity, his oxygen saturation drops into low 80s and on ce he sits down and rests, he recovers and this is his baseline at home. While in the hospital, his oxygen saturation with any activity drops down into 60s and 70s, which is lower than what he notices at home. Objective: Vital Signs: Reviewed. HEENT: Examination unremarkable. Lungs: Bilateral good equal air entry. Clear to auscultation. No wheezing. No rales. Not in any respiratory distress at rest. Heart: Sounds normal. Abdomen: Soft. Bowel sounds normal. No guarding, rigidity, tenderness, distention. Extremities: Leg edema has almost completely resolved. Laboratory Data: Blood culture is growing gram-positive cocci. Fingerstick blood sugar readings rev iewed. Impression: 1.Rule out sepsis. 2.Acute exacerbation of chronic obstructive pulmonary disease. 3.Chronic respiratory failure with hypoxia, with acute exacerbation. 4.Rule out lung cancer. 5.Rule out pneumonia. 6.Coronary artery disease. 7.Hypertension. Plan: We will go ahead and continue current antibiotic which is Levaquin. Continue vancomycin. We will follow up on final report on the blood culture. Hopefully, it should be ready by tomorrow. Onc e we know a definite report, then we will decide about discharge planning. There is a possibility th is could be very well skin contamination. Meanwhile, we will continue to treat his acute exacerbatio n of COPD with IV steroid. Continue current antibiotics. Continue oxygen replacement therapy and I will see him tomorrow for followup. Details were discussed with the patient. BEATRIZ/MODL Voice ID: [id number] Report ID: [id number]
[2021-10-27] MEDS: Levofloxacin500mg IV 500 MG/100 ML BAG IV SCH (16:15)
[2021-10-27] MEDS ORDERED: ATORVASTATIN 80 MG TAB PO SCH (21:00)
[2021-10-27] MEDS ORDERED: FAMOTIDINE 20 MG TAB PO SCH (21:00)
[2021-10-28] MEDS: METHYLPREDNISOLONE 40 MG INJ IV SCH ×2 (02:14→08:51)
[2021-10-28] MEDS: VANCOMYCIN 1.25 GM in NA CHLORIDE 0.9% 250 ML IVPB SCH (02:14)
[2021-10-28] MEDS: BUDESONIDE 0.5 MG/2 ML NEB IH SCH (07:41)
[2021-10-28] MEDS: ARFORMOTEROL TARTRATE 15 MCG/2 ML VIAL.NEB IH SCH (07:41)
[2021-10-28 08:23] VITALS: BP 125/70; TEMP 97.3
[2021-10-28 08:47] VITALS: O2SAT 96
[2021-10-28] MEDS: GLIPIZIDE S.A. 5 MG TAB PO SCH (08:48)
[2021-10-28] MEDS: CLOPIDOGREL 75 MG TABLET PO SCH (08:49)
[2021-10-28] MEDS: SPIRONOLACTONE 25 MG TABLET PO SCH (08:49)
[2021-10-28] MEDS: ASPIRIN EC 81 MG TAB PO SCH (08:49)
[2021-10-28] MEDS: METFORMIN ER 500 MG TAB PO SCH (08:50)
[2021-10-28] MEDS: ENOXAPARIN 30 MG/0.3 ML SQ SCH (08:51)
[2021-10-28] MEDS: INSULIN -REGULAR HUMAN 50 UNIT/0.5 ML ML SQ SCH (08:56)
[2021-10-28] MEDS: DILTIAZEM HCL 120 MG SR CAP PO SCH (08:56)
--- NOTE | 2021-10-28 10:43 | DS ---
Date of Discharge: 10/28/2021 Disposition: Discharged to go home. Physical Examination: HEENT: Unremarkable. Lungs: Clear to auscultation. Heart: Heart sounds normal. Abdomen: Soft. Bowel sounds normal. No guarding, rigidity, tenderness, or distention. Extremities: No leg edema. Hospital Course: This is a 75-year-old pleasant male patient, came into the emergency room with comp laints of shortness of breath. Please see dictated H and P for more information. After patient was evaluated in the ER, he was admitted to the hospital with acute exacerbation of his COPD. The patien t's COVID test was negative. Chest x-ray had shown extensive bilateral fibrotic lung changes. CAT s can of the chest has shown 4.5 cm lingular opacity and marked COPD changes and compression fracture o f thoracic spine. The patient is on chronic steroid therapy. His maintenance dose at home is 15 mg prednisone daily and he is also oxygen dependent. [facility] business process [facility] and tells me that at the time of his next appointment, which is sometime this month, Dr. Lopez is g oing to initiate discussion about lung transplant evaluation. At home, he normally stays on oxygen a nywhere between 4-5 L nasal cannula oxygen per minute all the time and with any activity his oxygen s aturation tends to drop down into low 80s and he increases his oxygen up to 10 L/minute temporally du ring activity. When his oxygen saturation started to drop down into the 60s and 70s range, that is t he time he decided to come to the hospital. After he was admitted to the hospital, he was started on IV Levaquin, IV steroid, and overall his condition has improved. Reports that yesterday when he did any activity and last night, his oxygen saturation had dropped down into low 80s like what normally does at home, so overall his condition has improved now. I have discussed with him regarding his CAT scan report and density that we see in his left lung raises possibility of either pneumonia or lung cancer and he was advised to have a followup with his business process analyst for further evaluation and manage ment of this problem. I have also discussed with him regarding the compression fracture of thoracic spine and this is due to his chronic steroid use and we will have to initiate oral bisphosphonate the rapy on an outpatient basis and I did mention this to him today. The patient had leg swelling proble m when he came in, which actually has resolved now. He has not shown any signs of atrial fibrillatio n, but has shown sinus tachycardia or frequent PACs with some atrial tachycardia while on the telemet ry monitor. Overall long-term prognosis is guarded. Today, he was discharged to go home in stable a nd improved condition with following discharge medications and instructions. The patient's blood culture came back positive and it is growing gram-positive cocci in cluster and i t is coagulase-negative staphylococcus, so this is likely a skin contamination and is only 1 bottle g rowing, so no need for further intervention for this skin contamination causing positive blood cultur e. There is no evidence of sepsis. Final Diagnoses: 1.Acute exacerbation of chronic obstructive pulmonary disease. 2.Chronic respiratory failure with hypoxia, with acute exacerbation. 3.Compression fracture of thoracic spine. 4.Chronic steroid therapy. 5.Coronary artery disease. 6.Hypertension. 7.Hyperlipidemia. 8.Type 2 diabetes mellitus, steroid induced. 9.Benign prostatic hypertrophy. 10.Rule out lung cancer. 11.Rule out pneumonia. Laboratory Data: Labs done during this hospitalization upon admission white count 16, hemoglobin 13, platelets 289, repeat white count 8.3, hemoglobin 11.9, platelets 228. So, initial sodium 137, pota ssium 4.2, chloride 101, bicarb 25, BUN 14, creatinine 0.9, glucose 293. Repeat sodium 139, potassiu m 4.1, chloride 106, bicarb 27, BUN 18, creatinine 0.68, glucose 140. Instructions/medications: Continue all prior home medications except following changes; 1.Change prednisone dose to 20 mg by mouth daily for 1 week, then take 15 mg daily with food. 2.Take Levaquin 500 mg by mouth daily for 10 days. 3.Followup up at my office next week on Saturday. The patient already has scheduled appointment wilber peck. 4.Follow up with your Pulmonary physician Dr. Lopez at [facility] [place] in next 2 weeks and the patient already has called his office to schedule this appointment and is melissa nascimento for the call back. BEATRIZ/MODL Voice ID: [id number] Report ID: [id number]
== END 2021-10-28 10:31 | disposition home or self-care (01) | DRG 190 ==
LOC: ER 15:11 → 2ND 19:52
PROVIDERS: ADMIT Internal Medicine; ATTEND Internal Medicine
DX: J44.0 Chronic obstructive pulmonary disease with (acute) lower respiratory infection (principal); J96.21 Acute and chronic respiratory failure with hypoxia; J18.9 Pneumonia, unspecified organism; M48.54XA Collapsed vertebra, not elsewhere classified, thoracic region, initial encounter for fracture; C34.12 Malignant neoplasm of upper lobe, left bronchus or lung; J44.1 Chronic obstructive pulmonary disease with (acute) exacerbation; I25.10 Atherosclerotic heart disease of native coronary artery without angina pectoris; I10 Essential (primary) hypertension; E78.5 Hyperlipidemia, unspecified; N40.0 Benign prostatic hyperplasia without lower urinary tract symptoms; E09.9 Drug or chemical induced diabetes mellitus without complications; T38.0X5A Adverse effect of glucocorticoids and synthetic analogues, initial encounter; Z99.81 Dependence on supplemental oxygen; Z95.1 Presence of aortocoronary bypass graft; Z79.52 Long term (current) use of systemic steroids; I25.2 Old myocardial infarction; Z87.891 Personal history of nicotine dependence; Z95.5 Presence of coronary angioplasty implant and graft; Z20.822 Contact with and (suspected) exposure to COVID-19
CPT/HCPCS: 36415; 71045; 71250; 80048; 80202; 82947; 83605; 83880; 84484; 85025; 87040; 87077; 87186; 87205; 93005; 94640; 94760; 96365; 96366; 96367; 96368; 96375; 99285; J1650; J1815; J2920; J2930; J3370; J3475; J7050; J7605; U0003